=== PATIENT | female | born 1990 | race American Indian/Alaskan Native ===

== ENCOUNTER 2016-12-19 09:28 | Inpatient (IN) | payer OTHER ==
[2016-12-19 09:46] VITALS: BMI 25.4
[2016-12-19] MEDS ORDERED: Sodium Chloride 0.9% 1,000 ML IV STA (10:09)
[2016-12-19 11:05] LABS: BASO # 0.02 K/mm3 (0.0-2.0); BASO % 0.2 % (0.0-3.0); EOS # 0.1 (0.0-0.7); EOS % 0.9 % (1.5-5.0); GRAN # 6.96 (1.4-6.5); GRAN % 76.3 % (50.0-68.0); HEMOGLOBIN 11.3 gm/dL (12.0-16.0); LYMPH # 1.2 (1.2-3.4); LYMPH % 13.1 % (22.0-35.0); MEAN CELL VOLUME 80.2 fL (80.0-105.0); MEAN CORPUSCULAR HEMOGLOBIN 28.3 pg (25.0-35.0); MEAN CORPUSCULAR HGB CONC 35.3 g/dl (31.0-37.0); MEAN PLATELET VOLUME 10.7 fl (7.0-11.0); MONO # 0.9 (0.1-0.6); MONO % 9.5 % (1.0-6.0); PLATELET COUNT 387 10^3/uL (120.0-450.0); RBC 3.99 10^6/uL (3.5-6.1); RED CELL DISTRIBUTION WIDTH 19.5 % (11.5-14.5); WHITE BLOOD COUNT 9.1 10^3/ul (4.5-11.0)
[2016-12-19 11:15] LABS: PH,URINE 6.5 (4.7-8.0); URINE BILIRUBIN LARGE (NEGATIVE); URINE BLOOD TRACE-INTACT (NEGATIVE); URINE GLUCOSE (UA) 250 mg/dL (NEGATIVE); URINE LEUKOCYTE ESTERASE TRACE Leu/uL (NEGATIVE); URINE NITRATE NEGATIVE (NEGATIVE); URINE PROTEIN 100 mg/dL (<30 mg/dL)
[2016-12-19 11:17] LABS: URINE APPEARANCE CLOUDY (CLEAR); URINE COLOR YELLOW (YELLOW)
[2016-12-19 11:18] LABS: URINE EPITHELIAL CELLS 0 - 2 /hpf (0-5); URINE RBC 0 - 2 /hpf (0-2); URINE WBC 0 - 2 /hpf (0-6)
[2016-12-19 12:19] LABS: ALB/GLOB RATIO 0.8 (1.1-1.8); ALT/SGPT 401 U/L (7-56); AMYLASE 39 U/L (35-125); AST/SGOT 299 U/L (15-39); BLOOD UREA NITROGEN 4 mg/dL (7-21); CALCIUM 9.8 mg/dL (8.4-10.5); GFR AFRICAN-AMERICAN > 60; GFR NON-AFRICAN AMERICAN > 60; LIPASE 28 U/L (23-300)
[2016-12-19 12:21] LABS: INR 1.27 (0.93-1.08); PARTIAL THROMBOPLASTIN TIME 35.5 Seconds (23.7-30.8); PROTHROMBIN TIME 13.7 Seconds (9.9-11.8)
--- NOTE | 2016-12-19 12:28 | MRI ---
PROCEDURE: Magnetic Resonance Cholangiopancreatography HISTORY: COMPARISON: Abdomen ultrasound examination and dated 12/10/2016.. TECHNIQUE: Multiplanar, multisequence MR images of the abdomen were obtained, including heavily T2 weighted MRCP images of the biliary system. Rotating maximum intensity projection images of the biliary system were generated. FINDINGS: MRCP: There is gross biliary tree dilatation including the proximal to midportion of the common bile duct and the entire intrahepatic biliary tree is appears to be due to a 12 mm rounded structure with dark signal intensity in all sequences lodged at the proximal to mid common bile duct pattern with a large gallstone. The proximal common bile duct measures approximately 26 mm with the midportion of measuring approximately 14 mm. The common hepatic duct measures 31 mm. Limited cholelithiasis suspected at the neck of the gallbladder with the gallbladder partially contracted in this study. No definitive hepatic lesions appreciable. The pancreas is unremarkable with no significant pancreatic duct dilatation identified. LIVER: As per above GALLBLADDER: As per above. SPLEEN: No defined lesion in this unenhanced examination. PANCREAS: As per above. ADRENALS: Unremarkable. KIDNEYS: Grossly nonfocal bilaterally. . AORTA: No aneurysm. ASCITES: None. OTHER FINDINGS: None. IMPRESSION: Gross dilatation of the intra and extrahepatic biliary tree is appreciated due to a 12 mm gallstone lodged at the proximal to mid common bile duct as discussed above. Please see please see measurements noted above. No significant pancreatic duct dilatation. Yes
--- NOTE | 2016-12-19 12:37 | ED PDOC ---
Arrival/HPI - General Chief Complaint: Abdominal Pain Time Seen by Provider: 12/19/16 10:09 Historian: Patient - History of Present Illness Narrative History of Present Illness (Text): 12/19/16 13:43 26 yo F otherwise healthy with no PMH, presents with 2 wk h/o constant RUQ pain , associated with N/V/D. Pt states that she went to see her pmd regarding her symptoms and was sent for outpt labs and US. Her labs and US were abnormal and was regarding her gallbladder. Denies any fever, chills, CP, SOB, back pain, urinary symptoms, h/o abdominal surgeries, h/o GB disease, h/o PUD disease. Reports she occasionally drinks etoh. She adds that 1 week ago she noticed her skin is jaundiced which has never occurred in the past. PMD W Art 12/19/16 13:44 Past Medical History - Provider Review Nursing Documentation Reviewed: Yes - Reproductive Menopause: No - Gastrointestinal Hx Gall Bladder Disease: Yes - Psychiatric Hx Substance Use: Yes Family/Social History - Physician Review Nursing Documentation Reviewed: Yes Family/Social History: No Known Family HX Smoking Status: Never Smoked Hx Alcohol Use: Yes Hx Substance Use: Yes Allergies/Home Meds Allergies/Adverse Reactions: Allergies Penicillins Adverse Reaction (Verified 12/19/16 09:46) RASH Home Medications: Home Meds Medication Instructions Recorded Confirmed No Known Home Med 12/19/16 12/19/16 Review of Systems - Review of Systems Constitutional: Normal. absent: Fatigue, Weight Change, Fevers Respiratory: Normal. absent: SOB, Cough, Sputum Cardiovascular: Normal Gastrointestinal: Normal, Abdominal Pain, Diarrhea, Vomiting. absent: Stool Changes, Appetite Changes Genitourinary Female: Normal. absent: Dysuria, Frequency, Hematuria Musculoskeletal: Normal. absent: Arthralgias, Back Pain, Neck Pain Skin: Normal. absent: Rash, Pruritis, Skin Lesions Physical Exam Vital Signs Reviewed: Yes Vital Signs Temp Pulse Resp BP Pulse Ox 12/19/16 12:19 72 18 132/72 100 12/19/16 09:55 98.2 F 98 H 17 119/80 100 Temperature: Afebrile Pulse: Regular Respiratory Rate: Normal Appearance: Positive for: Well-Appearing, Non-Toxic, Comfortable Pain Distress: None Mental Status: Positive for: Alert and Oriented X 3 - Systems Exam Head: Present: Atraumatic, Normocephalic Pupils: Present: PERRL Extroacular Muscles: Present: EOMI Conjunctiva: Present: Icteric Mouth: Present: Moist Mucous Membranes Neck: Present: Normal Range of Motion. No: MIDLINE TENDERNESS, Paraspinal Tenderness Respiratory/Chest: Present: Clear to Auscultation, Good Air Exchange. No: Respiratory Distress, Accessory Muscle Use, Wheezes, Rales, Rhonchi Cardiovascular: Present: Regular Rate and Rhythm, Normal S1, S2. No: Murmurs Abdomen: Present: Normal Bowel Sounds. No: Tenderness, Distention, Peritoneal Signs, Rebound, Guarding, McBurney's Point Tender, Rovsing's Sign Present, Hernias, Mass/Organomegaly, Scars Back: Present: Normal Inspection. No: CVA Tenderness, Midline Tenderness Upper Extremity: Present: Normal Inspection, Normal ROM, NORMAL PULSES. No: Edema Lower Extremity: Present: Normal Inspection, NORMAL PULSES, Normal ROM. No: Edema Neurological: Present: GCS=15, CN II-XII Intact, Speech Normal, Motor Func Grossly Intact, Normal Sensory Function Skin: Present: Warm, Dry, Other (+jaundice). No: Rashes Psychiatric: Present: Alert, Oriented x 3 Medical Decision Making ED Course and Treatment: 12/19/16 12:31 26 yo F otherwise healthy with no PMH, presents with 2 wk h/o constant RUQ pain , associated with N/V/D. Pt's PMD called and requests for MRCP to be done today , consult obtained already with Dr. Carlos. Based on history and exam to r/o choledocolithiasis, pancreatitis, acute cholangitis. Plan: - Labs - UA - MRCP - IV access On re-evaluation, pt is resting comfortably in bed in no acute distress. On exam , pt remains jaundiced with scleral icterus. Abdomen remains soft with no tenderness, no rebound or guarding. Labs results reviewed : LFTs are all elevated with T bili of 22.9. Pt sent to MRCP STAT. MRCP of abd : Gross dilatation of the intra and extrahepatic biliary tree is appreciated due to a 12 mm gallstone lodged at the proximal to mid common bile duct as discussed above. Please see please see measurements noted above. No significant pancreatic duct dilatation. MRCP results d/w the pt and informed of plan for inpt admission, which she agrees with. Pt informed of the likely diagnosis, she was given the opportunity to ask questions. Call placed to pt's pmd and MRCP results d/w him in great detail. Dr. Cordova came and evaluated the pt in the ER. GI Dr. Carlos notified as well of MRCP results. - Lab Interpretations Lab Results: 12/19/16 11:00 12/19/16 12:00 Lab Results 12/19/16 12:00: PT 13.7 H, INR 1.27 H, APTT 35.5 H 12/19/16 12:00: Sodium 141, Potassium 3.5 L, Chloride 102, Carbon Dioxide 26, Anion Gap 17, BUN 4 L, Creatinine 0.5, Est GFR ( Amer) > 60, Est GFR (Non -Af Amer) > 60, Random Glucose 88, Calcium 9.8, Total Bilirubin 22.9 H*, AST 299 H, ALT 401 H, Alkaline Phosphatase 827 H, Total Protein 8.9 H, Albumin 4.0, Globulin 5.0, Albumin/Globulin Ratio 0.8 L, Amylase 39, Lipase 28 12/19/16 11:00: WBC 9.1, RBC 3.99, Hgb 11.3 L, Hct 32.0 L, MCV 80.2, MCH 28.3, MCHC 35.3, RDW 19.5 H, Plt Count 387, MPV 10.7, Gran % 76.3 H, Lymph % (Auto) 13.1 L, [place] % (Auto) 9.5 H, Eos % (Auto) 0.9 L, Baso % (Auto) 0.2, Gran # 6.96 H, Lymph # 1.2, [place] # 0.9 H, Eos # 0.1, Baso # 0.02 12/19/16 10:05: Urine Color Yellow, Urine Appearance Cloudy, Urine pH 6.5, Ur Specific Willis 1.020, Urine Protein 100 H, Urine Glucose (UA) 250 H, Urine Ketones 40 H, Urine Blood Trace-intact H, Urine Nitrate Negative, Urine Bilirubin Large H, Urine Urobilinogen 2.0 H, Ur Leukocyte Esterase Trace H, Urine RBC 0 - 2, Urine WBC 0 - 2, Ur Epithelial Cells 0 - 2 I have reviewed the lab results: Yes (wbc 9.1, INR 1.27, T bili 22.9, ALK phos 827, AST 299, ALT 401, UA +protien) - RAD Interpretation Narrative RAD Interpretations (Text): 12/19/16 12:30 MRCP abd : FINDINGS: MRCP: There is gross biliary tree dilatation including the proximal to midportion of the common bile duct and the entire intrahepatic biliary tree is appears to be due to a 12 mm rounded structure with dark signal intensity in all sequences lodged at the proximal to mid common bile duct pattern with a large gallstone. The proximal common bile duct measures approximately 26 mm with the midportion of measuring approximately 14 mm. The common hepatic duct measures 31 mm. Limited cholelithiasis suspected at the neck of the gallbladder with the gallbladder partially contracted in this study. No definitive hepatic lesions appreciable. The pancreas is unremarkable with no significant pancreatic duct dilatation identified. LIVER: As per above GALLBLADDER: As per above. SPLEEN: No defined lesion in this unenhanced examination. PANCREAS: As per above. ADRENALS: Unremarkable. KIDNEYS: Grossly nonfocal bilaterally. . AORTA: No aneurysm. ASCITES: None. OTHER FINDINGS: None. IMPRESSION: Gross dilatation of the intra and extrahepatic biliary tree is appreciated due to a 12 mm gallstone lodged at the proximal to mid common bile duct as discussed above. Please see please see measurements noted above. No significant pancreatic duct dilatation. Radiology Orders: 12/19/16 10:15 MRCP AND ABDOMEN W/O CONTRAST [MRI] Stat - Medication Orders Current Medication Orders: Acetaminophen (Tylenol 325mg Tab) 650 mg PO Q6H PRN PRN Reason: Fever >100.4 F Sodium Chloride (Sodium Chloride 0.9%) 1,000 mls @ 100 mls/hr IV .Q10H STA Stop: 12/19/16 20:08 Last Admin: 12/19/16 10:49 Dose: 100 mls/hr Sodium Chloride (Sodium Chloride 0.9%) 1,000 mls @ 100 mls/hr IV .Q10H GIULIANA Oxycodone/Acetaminophen (Percocet 5/325 Mg Tab) 1 tab PO Q4H PRN PRN Reason: Pain, Mild (1-3) Stop: 12/22/16 13:12 Last Admin: 12/19/16 13:47 Dose: 1 tab Phytonadione (Vitamin K Inj) 10 mg SC DAILY GIULIANA Stop: 12/22/16 13:16 Last Admin: 12/19/16 13:50 Dose: 10 mg Discontinued Medications Ketorolac Tromethamine (Toradol) 30 mg IVP STAT STA Stop: 12/19/16 13:45 - PA / [employer] / Resident Statement / has reviewed & agrees with the documentation as recorded. Disposition/Present on Arrival - Present on Arrival Any Indicators Present on Arrival: No History of DVT/PE: No History of Uncontrolled Diabetes: No Urinary Catheter: No History of Decub. Ulcer: No History Surgical Site Infection Following: None - Disposition Have Diagnosis and Disposition been Completed?: Yes Diagnosis: Abdominal pain, Choledocholithiasis, Jaundice Disposition: HOSPITALIZED Disposition Time: 12:00 Patient Plan: Admission Patient Problems: Current Active Problems Problem Status Onset Abdominal pain Acute Choledocholithiasis Acute Jaundice Acute Condition: STABLE
[2016-12-19] MEDS: Oxycodone/Acetaminophen 5/325 mg Tab PO PRN ×3 (13:47→21:19)
[2016-12-19] MEDS: Phytonadione 10 mg/ml Inj (Adult) SC SCH (13:50)
--- NOTE | 2016-12-19 14:45 | CP.PCM.CON ---
<Gilma Israel - Last Filed: 12/19/16 14:46> History of Present Illness - History of Present Illness History of Present Illness: Seen and examined at bedside, just transferred from the ER. Chart reviewed. Request for consult is for Dilated CBD, jaundice. HPI: This is a 26 year old female with a history of C section, Substance abuse, denies cardiac, DM, respiratory history, came to the ER with complaints of abdominal pain. The abdominal pain has been occurring for a few weeks now,she had an outpatient abdominal US by PCP and reported CBD 19mm and gallstones, no wall thickening or pericholcystic fluid. She went to see her PCP who noticed that her eyes were icteric. She did notice dark urine, she was also getting nausea , yesterday she was N/V, no hematemsis. Her abdominal pain is mainly epigastric/RUQ. No fever or chill, sob or chest pain. She went to the ER for further evaluation. She had MRCP on admission and report gross dilation intra and extra hepatic biliary tree, 12 mm GB tree. She is jaundice and her TB 22. No acute distress. PMH: Denies cardiac, respiratory, sustance abuse PSH: x1 Allergies: PCN Family HX: denies LMP: week November MEDS: was taking motrin for pain last week Social: denies smoking, (+)etoh, (+)substance use ROS: system reviewed with positive findings, see HPI Past Patient History - Past Social History Smoking Status: Never Smoked - GASTROINTESTINAL Hx Gall Bladder Disease: Yes - PSYCHIATRIC Hx Substance Use: Yes Meds Allergies/Adverse Reactions: Allergies Allergy/AdvReac Type Severity Reaction Status Date / Time Penicillins AdvReac RASH Verified 12/19/16 14:28 - Medications Medications: Current Medications Acetaminophen (Tylenol 325mg Tab) 650 mg PO Q6H PRN PRN Reason: Fever >100.4 F Sodium Chloride (Sodium Chloride 0.9%) 1,000 mls @ 100 mls/hr IV .Q10H STA Stop: 12/19/16 20:08 Last Admin: 12/19/16 10:49 Dose: 100 mls/hr Sodium Chloride (Sodium Chloride 0.9%) 1,000 mls @ 100 mls/hr IV .Q10H GIULIANA Oxycodone/Acetaminophen (Percocet 5/325 Mg Tab) 1 tab PO Q4H PRN PRN Reason: Pain, Mild (1-3) Stop: 12/22/16 13:12 Last Admin: 12/19/16 13:47 Dose: 1 tab Phytonadione (Vitamin K Inj) 10 mg SC DAILY GIULIANA Stop: 12/22/16 13:16 Last Admin: 12/19/16 13:50 Dose: 10 mg Physical Exam - Constitutional Appears: No Acute Distress - Head Exam Head Exam: NORMAL INSPECTION - Eye Exam Eye Exam: PERRL, Scleral icterus - ENT Exam ENT Exam: Mucous Membranes Moist - Neck Exam Neck exam: Positive for: Normal Inspection - Respiratory Exam Respiratory Exam: Clear to Auscultation Bilateral, NORMAL BREATHING PATTERN. absent: Respiratory Distress - Cardiovascular Exam Cardiovascular Exam: +S1, +S2 - GI/Abdominal Exam GI & Abdominal Exam: Normal Bowel Sounds, Soft, Tenderness. absent: Distended, Guarding, Rebound Additional comments: epigastric to RUQ - Extremities Exam Extremities exam: Positive for: pedal pulses present. Negative for: calf tenderness, pedal edema - Neurological Exam Neurological exam: Alert, Oriented x3 - Skin Skin Exam: Dry, Warm Additional comments: Jaundice Results - Vital Signs Recent Vital Signs: Last Vital Signs Temp 98.2 F 12/19/16 09:55 Pulse 72 12/19/16 12:19 Resp 18 12/19/16 12:19 BP 132/72 12/19/16 12:19 Pulse Ox 100 12/19/16 12:19 - Labs Result Diagrams: 12/19/16 11:00 12/19/16 12:00 Assessment & Plan - Assessment and Plan (Free Text) Assessment: ASSESSMENT: Obstructive Jaundice Cholelithiasis Dilated CBD Elevated LFT PLAN: on regular diet hepatitis panel trend LFT start GI prophylaxsis DVT propylaxsis, OOB IVF NPO 12 midnight for EGD/EUS/ERCP fpr 12/20/16, discuss with patient. pain mgt Thank you for this consult and for allowing us to participate in your patient care. Seen and discussed with Dr. Carlos. <Alexus Carlos V - Last Filed: 12/19/16 23:49> Meds - Medications Medications: Current Medications Acetaminophen (Tylenol 325mg Tab) 650 mg PO Q6H PRN PRN Reason: Fever >100.4 F Sodium Chloride (Sodium Chloride 0.9%) 1,000 mls @ 100 mls/hr IV .Q10H GIULIANA Oxycodone/Acetaminophen (Percocet 5/325 Mg Tab) 1 tab PO Q4H PRN PRN Reason: Pain, Mild (1-3) Stop: 12/22/16 13:12 Last Admin: 12/19/16 21:19 Dose: 1 tab Phytonadione (Vitamin K Inj) 10 mg SC DAILY GIULIANA Stop: 12/22/16 13:16 Last Admin: 12/19/16 13:50 Dose: 10 mg Results - Vital Signs Recent Vital Signs: Last Vital Signs Temp 98.8 F 12/19/16 16:00 Pulse 71 12/19/16 16:00 Resp 20 12/19/16 16:00 BP 115/68 12/19/16 16:00 Pulse Ox 100 12/19/16 16:00 - Labs Result Diagrams: 12/19/16 11:00 12/19/16 12:00 Attending/Attestation - Attestation I have personally seen and examined this patient.: Yes I have fully participated in the care of the patient.: Yes I have reviewed all pertinent clinical information: Yes Notes (Text): this patient was seen and evaluated earlier. Discussed with the patient at length. The MRI was reviewed with the radiologist . He is 21. Patient is admitted with obstructive jaundice and dilated common bile duct CBD stone differential diagnosis Mirrizzi's syndrome. on examination patient was deeply jaundiced as a mild tenderness present in the right upper quadrant area no rebound or guarding Patient is scheduled for EUS ERCP tomorrow I did discuss in detail regarding the ERCP procedure risks benefits and 20 patient's boyfriend was at bedside had a discussed with the Dr.Azer trentv.
[2016-12-19] MEDS ORDERED: Pneumococcal 23-Valent Vaccine IM ONE (16:14)
[2016-12-19 21:54] LABS: HEPATITIS B SURFACE AG NEGATIVE (NEGATIVE)
[2016-12-19 21:59] LABS: HEPATITIS A IGM NEGATIVE (NEGATIVE)
[2016-12-19 22:00] LABS: HEPATITIS B CORE AB NEGATIVE (NEGATIVE)
[2016-12-19 22:12] LABS: HEPATITIS C ANTIBODY NEGATIVE (NEGATIVE)
[2016-12-20 06:28] LABS: BASO # 0.03 K/mm3 (0.0-2.0); BASO % 0.4 % (0.0-3.0); EOS # 0.2 (0.0-0.7); EOS % 2.1 % (1.5-5.0); GRAN # 5.02 (1.4-6.5); GRAN % 63.3 % (50.0-68.0); HEMOGLOBIN 9.7 gm/dL (12.0-16.0); LYMPH # 1.6 (1.2-3.4); LYMPH % 20.3 % (22.0-35.0); MEAN CELL VOLUME 79.9 fL (80.0-105.0); MEAN CORPUSCULAR HEMOGLOBIN 27.8 pg (25.0-35.0); MEAN CORPUSCULAR HGB CONC 34.8 g/dl (31.0-37.0); MEAN PLATELET VOLUME 9.9 fl (7.0-11.0); MONO # 1.1 (0.1-0.6); MONO % 13.9 % (1.0-6.0); PLATELET COUNT 356 10^3/uL (120.0-450.0); RBC 3.49 10^6/uL (3.5-6.1); RED CELL DISTRIBUTION WIDTH 19.9 % (11.5-14.5); WHITE BLOOD COUNT 7.9 10^3/ul (4.5-11.0)
[2016-12-20 06:43] LABS: ALB/GLOB RATIO 0.8 (1.1-1.8); ALBUMIN 3.3 g/dL (3.0-4.8); ALT/SGPT 334 U/L (7-56); AST/SGOT 276 U/L (15-39); BLOOD UREA NITROGEN 3 mg/dL (7-21); CALCIUM 9.1 mg/dL (8.4-10.5); GFR AFRICAN-AMERICAN > 60; GFR NON-AFRICAN AMERICAN > 60
--- NOTE | 2016-12-20 08:13 | HP ---
REASON FOR ADMISSION: 1. Obstructive jaundice. 2. Upper quadrant pain. HISTORY OF PRESENT ILLNESS: This is a 26-year-old female who presented to my office with abdominal pain and jaundice. The patient was sent to the emergency room where she had the initial assessment. There we found that she has obstructive jaundice with the change in the urine and stool color and night itching. Her initial total bili is 22.9 with AST 299 and ALT 401. The patient did have an ultrasound at [facility] prior to this admission that shows dilated common bile duct as well as intra and extrahepatic biliary duct with cholelithiasis, bile duct was 19 mm. The patient was brought to the emergency room for this reason where she had MRCP that found she has 12 mm stone in the distal common bile duct, colon obstruction. She also has cholelithiasis. No other symptoms. She also mentioned that she has change in her urine color to dark as well as light stool color as well as itching at night. No other medical history. PAST MEDICAL HISTORY: None. PAST SURGICAL HISTORY: None. ALLERGIES: NONE. MEDICATIONS AT HOME: None. SOCIAL HISTORY: No smoking, no drinking and no drug abuse. FAMILY HISTORY: significant. PHYSICAL EXAMINATION: GENERAL: She is alert, oriented x3 in acute distress. Very jaundiced. HEENT: Atraumatic and normocephalic, was jaundiced eyes and skin. CARDIOVASCULAR: S1 and S2. No murmur or gallop. CHEST: Clear to auscultation bilaterally. No wheezes. No crepitations. ABDOMEN: Soft, nontender and nondistended. Good bowel sounds. She has deep tenderness in the right upper quadrant, but other than that no rebound, no guarding, no peritonitis. EXTREMITIES: All within normal limits. LABORATORY DATA: Her white count 9.1 with hemoglobin 11, hematocrit is 32 with a platelet count of 387. [place] field shift of 76%. She had a PT 15.7, INR is 1.27 and PTT is 35.5. Her chemistry with sodium 141, potassium is 3.5, chloride is 102, carbon dioxide is 26, BUN is 4, creatinine is 0.5 and total bili 22.9. AST 299, ALT 401. Alk phos 827. Normal amylase and lipase. Her urine is negative for UTI, but she has large bilirubin. The patient had ultrasound prior to admission, that was consistent with dilatation of the common bile duct and cholelithiasis. MRI was done today that was consistent with dilatation of the common and intra and extrahepatic biliary duct with obstructing stone of 12 mm in the distal common bile duct. PLAN: 1. We will admit to hospital. 2. Consult Dr. Alexus Carlos for ERCP possible stent and stone extraction. 3. The patient to be on regular diet today and will n.p.o. past midnight. 4. We will plan cholecystectomy either on this admission or later admission. Case discussed with the patient and mother and they both agreed with the plan. Angela Cordova MD cc: MD Luis Felipe Anna MD
[2016-12-20 08:36] LABS: INR 1.1 (0.93-1.08); PROTHROMBIN TIME 11.9 Seconds (9.9-11.8)
[2016-12-20] MEDS: Oxycodone/Acetaminophen 5/325 mg Tab PO PRN (08:58)
[2016-12-20] MEDS: Sodium Chloride 0.9% 1,000 ML IV SCH (10:48)
[2016-12-20] MEDS: Phytonadione 10 mg/ml Inj (Adult) SC SCH (10:48)
[2016-12-20] MEDS ORDERED: Iohexol 240 (50 ml) ONE (14:51)
[2016-12-20] MEDS ORDERED: Succinylcholine 200 mg/10 ml Inj IV ONE (16:13)
[2016-12-20] MEDS ORDERED: Rocuronium 10 mg/ml (5 ml) ONE (16:24)
[2016-12-20] MEDS ORDERED: levoFLOXacin 250 mg in D5W 250 MG/50 ML BAG IVPB ONE (17:00)
[2016-12-20] MEDS ORDERED: D5W IVPB ONE (17:49)
[2016-12-20] MEDS ORDERED: LEVOFLOXACIN IVPB ONE (17:49)
[2016-12-20] MEDS: Indomethacin 50 MG Suppository PR ONE (17:50)
[2016-12-20] MEDS ORDERED: Neostigmine Methylsulfate 3mg/3ml Syringe IV ONE (18:37)
[2016-12-20] MEDS ORDERED: Glycopyrrolate 0.2 mg/ml (2ml vial) ONE (18:37)
[2016-12-20] MEDS ORDERED: Sodium Chloride 0.9% 1,000 ML IV SCH (19:00)
[2016-12-21] MEDS: Sodium Chloride 0.9% 1,000 ML IV SCH (00:16)
--- NOTE | 2016-12-21 05:24 | PN ---
DATE: 12/20/2016 SUBJECTIVE: The patient is admitted with obstructive jaundice in an eye that she has obstructing stone in the distal bile common duct that measure about 12 cm with dilation of the intra and extrahepatic biliary duct as well as cholelithiasis. She was admitted and GI consult with Dr. Carlos, who agreed to do the ERCP tomorrow and possible papillotomy. No evidence overnight. PHYSICAL EXAMINATION: VITAL SIGNS: She is afebrile. Stable. HEAD: She is atraumatic and normocephalic. EARS, NOSE, AND THROAT: Definitely she had jaundice in the eye and the skin. NECK: Soft with trachea in the midline. LUNGS: Clear to auscultation bilaterally. ABDOMEN: Soft, nontender, and nondistended with good bowel sounds. EXTREMITIES: All within normal limits. LABORATORY DATA: Her liver function tests repeated is much of the same image as yesterday with still total bilirubin is 22.9. ASSESSMENT AND PLAN: The patient will go today with Dr. Carlos for ERCP, possible papillotomy, possible stent, possible stone . Assess the situation after the procedure is performed. Angela Cordova MD
[2016-12-21 07:21] LABS: BASO # 0.01 K/mm3 (0.0-2.0); BASO % 0.1 % (0.0-3.0); EOS # 0.1 (0.0-0.7); EOS % 0.6 % (1.5-5.0); GRAN # 7.86 (1.4-6.5); GRAN % 73.3 % (50.0-68.0); HEMOGLOBIN 9.9 gm/dL (12.0-16.0); LYMPH # 1.7 (1.2-3.4); MEAN CELL VOLUME 80.2 fL (80.0-105.0); MEAN CORPUSCULAR HEMOGLOBIN 27.7 pg (25.0-35.0); MEAN CORPUSCULAR HGB CONC 34.5 g/dl (31.0-37.0); MEAN PLATELET VOLUME 9.9 fl (7.0-11.0); MONO # 1.1 (0.1-0.6); PLATELET COUNT 410 10^3/uL (120.0-450.0); RBC 3.58 10^6/uL (3.5-6.1); RED CELL DISTRIBUTION WIDTH 20.3 % (11.5-14.5); WHITE BLOOD COUNT 10.7 10^3/ul (4.5-11.0)
[2016-12-21 07:31] LABS: INR 1.11 (0.93-1.08); PARTIAL THROMBOPLASTIN TIME 32.9 Seconds (23.7-30.8)
[2016-12-21 07:35] LABS: ALB/GLOB RATIO 0.8 (1.1-1.8); ALBUMIN 3.6 g/dL (3.0-4.8); ALT/SGPT 317 U/L (7-56); AMYLASE 40 U/L (35-125); AST/SGOT 216 U/L (15-39); BLOOD UREA NITROGEN 6 mg/dL (7-21); CALCIUM 9.3 mg/dL (8.4-10.5); GAMMA GLUTAMYL TRANSPEPTIDASE 382 U/L (8-78); GFR AFRICAN-AMERICAN > 60; GFR NON-AFRICAN AMERICAN > 60; LIPASE 17 U/L (23-300)
[2016-12-21] MEDS ORDERED: Barium Sulfate Susp 2.1% w/v, 2.0% w/w 450 mL Bottle PO ONE (09:06)
--- NOTE | 2016-12-21 11:56 | CP.PCM.PN ---
<Gilma Israel - Last Filed: 12/21/16 11:53> Subjective - Date & Time of Evaluation Time of Evaluation: 09:10 - Subjective Subjective: S&E at bedside, chart reviewed. Had ERCP yesterday, s/p sphincterotomy and insertion of 7 FR 9CM straight plastic biliary stent. No complaints this am, Consuming clear liquid diet and tolerating. Abdominal pain has improved, no fever, chills, N/V. Objective - Vital Signs/Intake and Output Vital Signs (last 24 hours): Temp Pulse Resp BP Pulse Ox 98.1 F 60 19 129/76 100 12/21/16 07:40 12/21/16 07:40 12/21/16 07:40 12/21/16 07:40 12/21/16 07:40 Intake and Output: 12/21/16 12/21/16 06:59 18:59 Intake Total 1200 Output Total 350 Balance 850 - Medications Medications: Current Medications Acetaminophen (Tylenol 325mg Tab) 650 mg PO Q6H PRN PRN Reason: Fever >100.4 F Sodium Chloride (Sodium Chloride 0.9%) 1,000 mls @ 100 mls/hr IV .Q10H GIULIANA Last Admin: 12/21/16 00:16 Dose: 100 mls/hr Sodium Chloride (Sodium Chloride 0.9%) 1,000 mls @ 100 mls/hr IV .Q10H GIULIANA Oxycodone/Acetaminophen (Percocet 5/325 Mg Tab) 1 tab PO Q4H PRN PRN Reason: Pain, Mild (1-3) Stop: 12/22/16 13:12 Last Admin: 12/20/16 08:58 Dose: 1 tab Pantoprazole Sodium (Protonix Inj) 40 mg IVP DAILY GIULIANA Last Admin: 12/21/16 08:59 Dose: 40 mg - Labs Labs: 12/21/16 07:00 12/21/16 07:00 PT 12.0 Seconds (9.9-11.8) H 12/21/16 07:00 INR 1.11 (0.93-1.08) H 12/21/16 07:00 APTT 32.9 Seconds (23.7-30.8) H 12/21/16 07:00 - Constitutional Appears: No Acute Distress - Head Exam Head Exam: NORMOCEPHALIC - Eye Exam Eye Exam: Scleral icterus - ENT Exam ENT Exam: Mucous Membranes Moist - Neck Exam Neck Exam: Normal Inspection - Respiratory Exam Respiratory Exam: Clear to Ausculation Bilateral, NORMAL BREATHING PATTERN. absent: Respiratory Distress - Cardiovascular Exam Cardiovascular Exam: +S1, +S2 - GI/Abdominal Exam GI & Abdominal Exam: Soft, Normal Bowel Sounds. absent: Guarding, Tenderness, Rebound - Extremities Exam Extremities Exam: Normal Capillary Refill. absent: Calf Tenderness, Pedal Edema - Neurological Exam Neurological Exam: Alert, Awake, Oriented x3 - Skin Skin Exam: Dry, Warm Additional comments: jaundice Assessment and Plan - Assessment and Plan (Free Text) Assessment: ASSESSMENT: Obstructive Jaundice s/p ERCP with sphincterotomy/stent placement Cholelithiasis Dilated CBD Elevated LFT PLAN: on clear liquid trend LFT continue GI prophylaxsis DVT propylaxsis, OOB IVF ct scan A&P w/ pancreatic protocol surgical FU Seen and discussed with Dr. Carlos. <Alexus Carlos V - Last Filed: 12/21/16 23:32> Objective - Vital Signs/Intake and Output Vital Signs (last 24 hours): Temp Pulse Resp BP Pulse Ox 98.2 F 64 18 132/90 98 12/21/16 16:00 12/21/16 16:00 12/21/16 16:00 12/21/16 16:00 12/21/16 16:00 Intake and Output: 12/21/16 12/22/16 18:59 06:59 Intake Total 660 Balance 660 - Medications Medications: Current Medications Acetaminophen (Tylenol 325mg Tab) 650 mg PO Q6H PRN PRN Reason: Fever >100.4 F Oxycodone/Acetaminophen (Percocet 5/325 Mg Tab) 1 tab PO Q4H PRN PRN Reason: Pain, Mild (1-3) Stop: 12/22/16 13:12 Last Admin: 12/20/16 08:58 Dose: 1 tab Pantoprazole Sodium (Protonix Ec Tab) 40 mg PO 0600 GIULIANA - Labs Labs: 12/21/16 07:00 12/21/16 07:00 PT 12.0 Seconds (9.9-11.8) H 12/21/16 07:00 INR 1.11 (0.93-1.08) H 12/21/16 07:00 APTT 32.9 Seconds (23.7-30.8) H 12/21/16 07:00 Attending/Attestation - Attestation I have personally seen and examined this patient.: Yes I have fully participated in the care of the patient.: Yes I have reviewed all pertinent clinical information, including history, physical exam and plan: Yes Notes (Text): this
--- NOTE | 2016-12-21 16:08 | CT ---
PROCEDURE: CT Abdomen and Pelvis with and without intravenous contrast HISTORY: w/ abd pelvis: cbd stone, s/p ercp COMPARISON: MRCP 12/19/2016 and ERCP 12/20/2016 TECHNIQUE: Axial images of the abdomen were obtained in the pre contrast, portal venous and delayed phases of enhancement. Coronal and sagittal reformats were generated. This CT exam was performed using one or more of the following dose reduction techniques: Automated exposure control, adjustment of the mA and/or kV according to patient size, and/or use of iterative reconstruction technique. Contrast dose: 150 cc of Omni 350 Radiation dose: Total exam DLP = 1000 mGy-cm. FINDINGS: LOWER THORAX: Unremarkable. LIVER: Unremarkable. No gross lesion or ductal dilatation. GALLBLADDER AND BILE DUCTS: A common bile duct stent was placed yesterday. The intrahepatic ductal dilatation as well as the distended gallbladder and common duct are no longer seen. There is a small amount of air in the intrahepatic ducts which are normal in size. The common duct is decompressed. The gallbladder is decompressed. On axial image 39 series 2 a 6 mm stone can be seen adjacent to the common duct stent. It is uncertain if this is in the cystic duct or the common duct. This density appears to be smaller than the stone seen on MRCP. That stone measured 14 mm. There is a probable stone in the gallbladder fundus measuring 10 x 16 mm. This could represent 2 adjacent stones. This could represent the stone that was lodged in the cystic duct and is now displaced into the fundus. This can be seen on image 46 through 49 of series 5. PANCREAS: Unremarkable. No gross lesion or ductal dilatation. SPLEEN: Unremarkable. ADRENALS: Unremarkable. No mass. KIDNEYS AND URETERS: Unremarkable. No hydronephrosis. No solid mass. VASCULATURE: Unremarkable. No aortic aneurysm. BOWEL: Unremarkable. No obstruction. No gross mural thickening. APPENDIX: Normal appendix. PERITONEUM: Unremarkable. No free fluid. No free air. LYMPH NODES: Unremarkable. No enlarged lymph nodes. BLADDER: Unremarkable. REPRODUCTIVE: Unremarkable. BONES: No acute fracture. OTHER FINDINGS: None. IMPRESSION: Decompression of biliary ducts after stent placement. See comments
--- NOTE | 2016-12-21 18:35 | PN ---
DATE: 12/21/2016 SUBJECTIVE: The patient is status post ERCP and stent placement by Dr. Carlos. Stent still existing, this was not removed. CT scan was obtained this morning, which shows a stent but decompression of the gallbladder as well as the biliary system, but stent dilated to 16 mm. Also showed the stone is existing. PHYSICAL EXAMINATION: VITAL SIGNS: She is afebrile. Vital signs are stable. GENERAL: She is awake, oriented x3, no acute complains. Tolerating diet. NECK: Supple. Trachea midline. ABDOMEN: Soft, nontender, nondistended. Good bowel sounds. EXTREMITIES: All within normal limits. LABORATORY DATA: Her white count is 10.7, hemoglobin 10, hematocrit is 28.7 and platelet count of 410. Her chemistry with sodium 142, potassium is 3.7, chloride 106, BUN is 6, creatinine 0.5. Total bilirubin 16.7 down from 20. AST is 260, ALT is 317 and alk phos 768 with amylase and lipase [address] scan with contrast it shows decompression of the biliary system with still cholelithiasis and stent placed. PLAN: 1. The plan for now is we will advance the patient to diet and hep lock her IV. 2. We will discuss with Dr. Carlos if he want to take the patient back to try again to remove the stone. If not, we will consider cholecystectomy and common bile duct ____ possible hepaticojejunostomy, possible choledoco-duodenostomy. Case discussed with the patient mom as well as the patient. Angela Cordova MD
[2016-12-21 19:40] LABS: BILIRUBIN,DIRECT 13.5 mg/dL (0.0-0.4)
[2016-12-22] MEDS: Oxycodone/Acetaminophen 5/325 mg Tab PO PRN (04:41)
[2016-12-22] MEDS: Pantoprazole 40 mg EC Tab PO SCH (05:32)
[2016-12-22 10:15] LABS: BASO # 0.02 K/mm3 (0.0-2.0); BASO % 0.2 % (0.0-3.0); EOS # 0.1 (0.0-0.7); EOS % 1.6 % (1.5-5.0); GRAN # 4.98 (1.4-6.5); GRAN % 61.7 % (50.0-68.0); HEMOGLOBIN 8.9 gm/dL (12.0-16.0); LYMPH # 2.4 (1.2-3.4); LYMPH % 29.5 % (22.0-35.0); MEAN CELL VOLUME 81.1 fL (80.0-105.0); MEAN CORPUSCULAR HEMOGLOBIN 28.1 pg (25.0-35.0); MEAN CORPUSCULAR HGB CONC 34.6 g/dl (31.0-37.0); MEAN PLATELET VOLUME 9.9 fl (7.0-11.0); MONO # 0.6 (0.1-0.6); PLATELET COUNT 387 10^3/uL (120.0-450.0); RBC 3.17 10^6/uL (3.5-6.1); RED CELL DISTRIBUTION WIDTH 20.9 % (11.5-14.5); WHITE BLOOD COUNT 8.1 10^3/ul (4.5-11.0)
[2016-12-22 10:21] LABS: ALB/GLOB RATIO 0.8 (1.1-1.8); ALBUMIN 3.3 g/dL (3.0-4.8); ALT/SGPT 231 U/L (7-56); AST/SGOT 162 U/L (15-39); BLOOD UREA NITROGEN 3 mg/dL (7-21); GFR AFRICAN-AMERICAN > 60; GFR NON-AFRICAN AMERICAN > 60
[2016-12-22] MEDS ORDERED: Potassium Chloride 20 mEq ER Tab PO ONE (10:57)
--- NOTE | 2016-12-22 12:32 | CP.PCM.PN ---
<Gilma Israel - Last Filed: 12/22/16 12:32> Subjective - Date & Time of Evaluation Date of Evaluation: 12/22/16 Time of Evaluation: 09:35 - Subjective Subjective: S&E at bedside this am, improving jaundice, denies N/V abdominal pain. No fever or chills. Tolerating oral intake.No new complaints. Objective - Vital Signs/Intake and Output Vital Signs (last 24 hours): Temp Pulse Resp BP Pulse Ox 98.3 F 65 20 134/79 99 12/22/16 08:29 12/22/16 08:29 12/22/16 08:29 12/22/16 08:29 12/22/16 08:29 Intake and Output: 12/22/16 12/22/16 06:59 18:59 Intake Total 660 120 Balance 660 120 - Medications Medications: Current Medications Acetaminophen (Tylenol 325mg Tab) 650 mg PO Q6H PRN PRN Reason: Fever >100.4 F Oxycodone/Acetaminophen (Percocet 5/325 Mg Tab) 1 tab PO Q4H PRN PRN Reason: Pain, Mild (1-3) Stop: 12/22/16 13:12 Last Admin: 12/22/16 04:41 Dose: 1 tab Pantoprazole Sodium (Protonix Ec Tab) 40 mg PO 0600 [facility]UL[facility] Last Admin: 12/22/16 05:32 Dose: 40 mg - Labs Labs: 12/22/16 09:50 12/22/16 09:50 PT 12.0 Seconds (9.9-11.8) H 12/21/16 07:00 INR 1.11 (0.93-1.08) H 12/21/16 07:00 APTT 32.9 Seconds (23.7-30.8) H 12/21/16 07:00 - Constitutional Appears: No Acute Distress - Head Exam Head Exam: NORMOCEPHALIC - Eye Exam Eye Exam: Scleral icterus (improved) - Neck Exam Neck Exam: Normal Inspection - Respiratory Exam Respiratory Exam: Clear to Ausculation Bilateral, NORMAL BREATHING PATTERN. absent: Respiratory Distress - Cardiovascular Exam Cardiovascular Exam: +S1, +S2 - GI/Abdominal Exam GI & Abdominal Exam: Soft, Normal Bowel Sounds. absent: Distended, Guarding, Tenderness, Organomegaly, Rebound - Extremities Exam Extremities Exam: Normal Capillary Refill. absent: Calf Tenderness, Pedal Edema - Neurological Exam Neurological Exam: Alert, Awake, Oriented x3 - Skin Skin Exam: Dry (improving jaundice), Warm Assessment and Plan - Assessment and Plan (Free Text) Assessment: ASSESSMENT: Obstructive Jaundice, s/p ERCP with sphincterotomy/stent placement Cholelithiasis Dilated CBD Elevated LFT, improving PLAN: continue low diet trend LFT continue GI prophylaxsis DVT propylaxsis, OOB ct pancreatic protocol reviewed w/ radiologist NPO 12 midnight for ERCP/spyglass 12/22/16 repeat labs in am: cbc,cmp,pt monitor H/H Seen and discussed with Dr. Carlos. <Alexus Carlos V - Last Filed: 12/23/16 17:56> Objective - Vital Signs/Intake and Output Vital Signs (last 24 hours): Temp Pulse Resp BP Pulse Ox 98.7 F 76 18 128/76 100 12/22/16 20:00 12/22/16 16:00 12/22/16 16:00 12/22/16 16:00 12/22/16 16:00 Intake and Output: 12/22/16 12/23/16 18:59 06:59 Intake Total 120 540 Balance 120 540 - Medications Medications: Current Medications Acetaminophen (Tylenol 325mg Tab) 650 mg PO Q6H PRN PRN Reason: Fever >100.4 F Last Admin: 12/22/16 17:34 Dose: 650 mg Pantoprazole Sodium (Protonix Ec Tab) 40 mg PO 0600 GIULIANA Last Admin: 12/22/16 05:32 Dose: 40 mg - Labs Labs: 12/22/16 09:50 12/22/16 09:50 PT 12.0 Seconds (9.9-11.8) H 12/21/16 07:00 INR 1.11 (0.93-1.08) H 12/21/16 07:00 APTT 32.9 Seconds (23.7-30.8) H 12/21/16 07:00 Attending/Attestation - Attestation I have personally seen and examined this patient.: Yes I have fully participated in the care of the patient.: Yes I have reviewed all pertinent clinical information, including history, physical exam and plan: Yes Notes (Text): t
[2016-12-23] MEDS: Pantoprazole 40 mg EC Tab PO SCH (05:50)
[2016-12-23 07:24] LABS: BASO # 0.04 K/mm3 (0.0-2.0); BASO % 0.6 % (0.0-3.0); EOS # 0.1 (0.0-0.7); GRAN # 4.11 (1.4-6.5); GRAN % 57.2 % (50.0-68.0); HEMOGLOBIN 8.2 gm/dL (12.0-16.0); LYMPH # 2.1 (1.2-3.4); LYMPH % 29.6 % (22.0-35.0); MEAN CELL VOLUME 81.8 fL (80.0-105.0); MEAN CORPUSCULAR HEMOGLOBIN 27.6 pg (25.0-35.0); MEAN CORPUSCULAR HGB CONC 33.7 g/dl (31.0-37.0); MEAN PLATELET VOLUME 9.9 fl (7.0-11.0); MONO # 0.8 (0.1-0.6); MONO % 10.6 % (1.0-6.0); PLATELET COUNT 403 10^3/uL (120.0-450.0); RBC 2.97 10^6/uL (3.5-6.1); RED CELL DISTRIBUTION WIDTH 21.6 % (11.5-14.5); WHITE BLOOD COUNT 7.2 10^3/ul (4.5-11.0)
[2016-12-23 07:31] LABS: INR 1.03 (0.93-1.08); PARTIAL THROMBOPLASTIN TIME 29.1 Seconds (23.7-30.8); PROTHROMBIN TIME 11.1 Seconds (9.9-11.8)
[2016-12-23 08:21] LABS: ALB/GLOB RATIO 0.8 (1.1-1.8); ALT/SGPT 186 U/L (7-56); AST/SGOT 134 U/L (15-39); BLOOD UREA NITROGEN 3 mg/dL (7-21); CALCIUM 8.8 mg/dL (8.4-10.5); GFR AFRICAN-AMERICAN > 60; GFR NON-AFRICAN AMERICAN > 60
[2016-12-23 11:19] LABS: BASO # 0.02 K/mm3 (0.0-2.0); BASO % 0.3 % (0.0-3.0); EOS # 0.1 (0.0-0.7); EOS % 1.6 % (1.5-5.0); GRAN # 3.73 (1.4-6.5); GRAN % 59.7 % (50.0-68.0); HEMOGLOBIN 8.5 gm/dL (12.0-16.0); LYMPH # 1.8 (1.2-3.4); LYMPH % 28.8 % (22.0-35.0); MEAN CELL VOLUME 82.5 fL (80.0-105.0); MEAN CORPUSCULAR HEMOGLOBIN 27.5 pg (25.0-35.0); MEAN CORPUSCULAR HGB CONC 33.3 g/dl (31.0-37.0); MONO # 0.6 (0.1-0.6); MONO % 9.6 % (1.0-6.0); PLATELET COUNT 428 10^3/uL (120.0-450.0); RBC 3.09 10^6/uL (3.5-6.1); RED CELL DISTRIBUTION WIDTH 21.6 % (11.5-14.5); WHITE BLOOD COUNT 6.3 10^3/ul (4.5-11.0)
--- NOTE | 2016-12-23 13:59 | PN ---
DATE: 12/23/2016 SUBJECTIVE: The patient admitted for obstructive jaundice, found that she has large obstructing stone at the distal common bile duct. She was taken by Dr. Carlos for ERCP that was unsuccessful to remove the stone but was able to place a stent. The patient is doing well since then. She has no complaints. She is tolerating regular diet very well. PHYSICAL EXAMINATION: VITAL SIGNS: She is afebrile. Vital signs are stable. ABDOMEN: Soft, nontender, nondistended with good bowel sounds. LABORATORY DATA: Her white count today 6.3 with hemoglobin is 8.5 and hematocrit is 25.5 and platelet count of 424. Her coagulation is . PT is 11.1 and INR is 1.03. Her chemistry; sodium is 139, potassium is 3.7, BUN is 3, creatinine is 0.5. Total bilirubin is 6.4 that is why down from admission which was 23. AST and ALT 134 and 186 which is also down. Her alk phos is 539 is okay. PLAN: Dr. Carlos planning to take the patient today for another ERCP, possible removal of the stone, and we will determine the next move based on today's procedure outcome. Angela Cordova MD
[2016-12-23] MEDS ORDERED: Iohexol 240 (50 ml) ONE (16:55)
[2016-12-23] MEDS ORDERED: Indomethacin 50 MG Suppository PR ONE (16:56)
[2016-12-23] MEDS ORDERED: Propofol 10 mg/ml Inj (20 ML) ONE (17:52)
[2016-12-23] MEDS ORDERED: Midazolam 2 MG/2 ML VIAL ONE (17:52)
[2016-12-23] MEDS ORDERED: Succinylcholine 200 mg/10 ml Inj IV ONE (17:52)
--- NOTE | 2016-12-23 17:58 | CP.PCM.PN ---
Subjective - Date & Time of Evaluation Date of Evaluation: 12/23/16 Time of Evaluation: 17:15 - Subjective Subjective: feels better. No abigail. 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 Objective - Vital Signs/Intake and Output Vital Signs (last 24 hours): Temp Pulse Resp BP Pulse Ox 98 F 64 18 118/78 100 12/23/16 16:09 12/23/16 16:09 12/23/16 16:09 12/23/16 16:09 12/23/16 16:09 Intake and Output: 12/23/16 12/23/16 06:59 18:59 Intake Total 540 0 Balance 540 0 - Medications Medications: Current Medications Acetaminophen (Tylenol 325mg Tab) 650 mg PO Q6H PRN PRN Reason: Fever >100.4 F Last Admin: 12/22/16 23:40 Dose: 650 mg Pantoprazole Sodium (Protonix Ec Tab) 40 mg PO 0600 GIULIANA Last Admin: 12/23/16 05:50 Dose: Not Given - Labs Labs: 12/23/16 11:00 12/23/16 06:30 PT 11.1 Seconds (9.9-11.8) 12/23/16 05:00 INR 1.03 (0.93-1.08) 12/23/16 05:00 APTT 29.1 Seconds (23.7-30.8) 12/23/16 05:00 - Constitutional Appears: Well - Head Exam Head Exam: ATRAUMATIC, NORMOCEPHALIC - Eye Exam Eye Exam: EOMI, Scleral icterus - ENT Exam ENT Exam: Mucous Membranes Moist, Normal External Ear Exam - Neck Exam Neck Exam: Normal Inspection. absent: Lymphadenopathy - Respiratory Exam Respiratory Exam: NORMAL BREATHING PATTERN. absent: Accessory Muscle Use, Rales , Rhonchi - Cardiovascular Exam Cardiovascular Exam: REGULAR RHYTHM, +S1, +S2 - GI/Abdominal Exam GI & Abdominal Exam: Soft. absent: Tenderness, Mass Assessment and Plan - Assessment and Plan (Free Text) Assessment: Obstructive Jaundice, s/p ERCP with sphincterotomy/stent placement Cholelithiasis Dilated CBD Elevated LFT, improving anemial drop in hb no obvious bleeding Plan: For ERCP spyglass informed consent obtained rept Hct stable
[2016-12-23] MEDS ORDERED: levoFLOXacin 500 mg in D5W 500 MG/100 ML BAG IVPB ONE (21:11)
[2016-12-23] MEDS: Sodium Chloride 0.9% 1,000 ML IV SCH (22:31)
--- NOTE | 2016-12-24 01:22 | CP.PCM.PN ---
Subjective - Date & Time of Evaluation Date of Evaluation: 12/24/16 Time of Evaluation: 01:20 - Subjective Subjective: # 22 angiocath was inserted in right hand dorsum. Dx:Poor venous access. Patient has no acute symptoms. Last Vital Signs 3 Temp 97.6 F 12/24/16 00:00 Pulse 81 12/24/16 00:00 Resp 20 12/24/16 00:00 BP 184/77 H 12/24/16 00:00 Pulse Ox 99 12/24/16 00:00 awake, alert. LUNGS: Normal breathing pattern. Objective - Vital Signs/Intake and Output Vital Signs (last 24 hours): Temp Pulse Resp BP Pulse Ox 97.6 F 81 20 184/77 H 99 12/24/16 00:00 12/24/16 00:00 12/24/16 00:00 12/24/16 00:00 12/24/16 00:00 Intake and Output: 12/23/16 12/24/16 18:59 06:59 Intake Total 0 0 Balance 0 0 - Medications Medications: Current Medications Acetaminophen (Tylenol 325mg Tab) 650 mg PO Q6H PRN PRN Reason: Fever >100.4 F Last Admin: 12/24/16 00:33 Dose: 650 mg Sodium Chloride (Sodium Chloride 0.9%) 1,000 mls @ 100 mls/hr IV .Q10H [facility] Last Admin: 12/23/16 22:31 Dose: 100 mls/hr Ondansetron HCl (Zofran Inj) 4 mg IVP Q6H PRN PRN Reason: Nausea/Vomiting Pantoprazole Sodium (Protonix Ec Tab) 40 mg PO 0600 [facility] Last Admin: 12/23/16 05:50 Dose: Not Given - Labs Labs: 12/23/16 11:00 12/23/16 06:30 PT 11.1 Seconds (9.9-11.8) 12/23/16 05:00 INR 1.03 (0.93-1.08) 12/23/16 05:00 APTT 29.1 Seconds (23.7-30.8) 12/23/16 05:00
[2016-12-24] MEDS: Pantoprazole 40 mg EC Tab PO SCH (05:29)
[2016-12-24 05:33] LABS: HEMOGLOBIN 8.2 gm/dL (12.0-16.0); MEAN CELL VOLUME 83.7 fL (80.0-105.0); MEAN CORPUSCULAR HEMOGLOBIN 27.9 pg (25.0-35.0); MEAN CORPUSCULAR HGB CONC 33.3 g/dl (31.0-37.0); MEAN PLATELET VOLUME 10.2 fl (7.0-11.0); RBC 2.94 10^6/uL (3.5-6.1); RED CELL DISTRIBUTION WIDTH 21.9 % (11.5-14.5); WHITE BLOOD COUNT 10.5 10^3/ul (4.5-11.0)
[2016-12-24 05:46] LABS: ALB/GLOB RATIO 0.9 (1.1-1.8); ALBUMIN 3.3 g/dL (3.0-4.8); ALT/SGPT 183 U/L (7-56); AST/SGOT 139 U/L (15-39); BLOOD UREA NITROGEN 5 mg/dL (7-21); CALCIUM 8.9 mg/dL (8.4-10.5); GFR AFRICAN-AMERICAN > 60; GFR NON-AFRICAN AMERICAN > 60
[2016-12-24 08:01] VITALS: BP 134/73; PULSE 72; RESP 19; TEMP 98.6; O2SAT 98
[2016-12-24 08:27] LABS: BILIRUBIN,DIRECT 5.2 mg/dL (0.0-0.4)
--- NOTE | 2016-12-24 09:06 | RAD ---
PROCEDURE: ERCP HISTORY: SPYGLASS STONES COMPARISON: ERCP 12/20/2016 TECHNIQUE: Fluoroscopic guidance was provided to the referring physician to in performing an ERCP examination. Seven spot fluoroscopic images of been submitted. 9 minutes 2 seconds are carcinomas utilized. FINDINGS: Initial spot fluoroscopic Skopic images demonstrate endoscope placed in the right upper quadrant with the apparen cannulation of the common bile duct and subsequent contrast opacification of the CBD as well as intrahepatic biliary tree, both of which appear dilated. Balloon sweep was apparently performed with plasty and stenting of the common bile duct upper appreciated via a lengthy stent extending into the intrahepatic ducts centrally. Please see operative report for further detail. IMPRESSION: Please see discussion above as well as operative report for greater detail.
[2016-12-24] MEDS: Sodium Chloride 0.9% 1,000 ML IV SCH (10:15)
--- NOTE | 2016-12-26 08:33 | DS ---
DATE: 12/24/2016 Patient admitted with obstructive jaundice. . Found that she had a larger stone impacted at the distal common bile duct. Dr. Carlos was called, and he performed ERCP as well as SpyGlass, and finally he put a stent of 10-[place] 9 cm and had symptomatically improved, but not completely down to normal value of the liver function test. PHYSICAL EXAMINATION: VITAL SIGNS: Today, she is afebrile. Vital signs are stable. ABDOMEN: Abdomen is soft, nontender, nondistended. Good bowel sounds. EXTREMITIES: All within normal limits. She is tolerating regular diet. LABORATORY DATA: Her white count today is 10.5 with hemoglobin 8, hematocrit 24, and platelet count of 390. Her enzyme today total bili is 6.4 with direct bili 5.2. AST and ALT are 139 and 83, alkaline phosphatase is down to 510. The plan for this patient, we are going to discharge the patient home with the stent. She is going to follow up as outpatient in the office. We will repeat her blood test and liver function test, enzymes, and then we will send the patient to Dr. Carlos for another SpyGlass, and then we will take it from at this moment. There is no discharge medication. Follow up regular diet. Angela Cordova MD
== END 2016-12-24 14:43 | disposition home or self-care (01) | DRG 208 ==
LOC: ED 09:28 → ERH 12:52 → 3RNO 13:56
PROVIDERS: ADMIT Surgery; ATTEND Surgery
PROC: 0DJ08ZZ Inspection of Upper Intestinal Tract, Via Natural or Artificial Opening Endoscopic (ICD-10-PCS; 2016-12-20)
PROC: 0F798DZ Dilation of Common Bile Duct with Intraluminal Device, Via Natural or Artificial Opening Endoscopic (ICD-10-PCS; 2016-12-20)
PROC: 0FC98ZZ Extirpation of Matter from Common Bile Duct, Via Natural or Artificial Opening Endoscopic (ICD-10-PCS; principal; 2016-12-23 14:00)
PROC: 0F9980Z Drainage of Common Bile Duct with Drainage Device, Via Natural or Artificial Opening Endoscopic (ICD-10-PCS; 2016-12-23 14:00)
PROC: 0DJ08ZZ Inspection of Upper Intestinal Tract, Via Natural or Artificial Opening Endoscopic (ICD-10-PCS; 2016-12-23 14:00)
PROC: 0F7C8DZ Dilation of Ampulla of Vater with Intraluminal Device, Via Natural or Artificial Opening Endoscopic (ICD-10-PCS; 2016-12-23 14:00)
DX: K80.51 Calculus of bile duct without cholangitis or cholecystitis with obstruction (principal); Z88.0 Allergy status to penicillin; R40.2412 Glasgow coma scale score 13-15, at arrival to emergency department; K80.61 Calculus of gallbladder and bile duct with cholecystitis, unspecified, with obstruction; K83.8 Other specified diseases of biliary tract

== ENCOUNTER 2017-02-02 21:30 | Observation (INO) | payer OTHER ==
[2017-02-02 21:31] VITALS: BMI 25.4
--- NOTE | 2017-02-02 21:48 | ED PDOC ---
Arrival/HPI - General Chief Complaint: Abdominal Pain Time Seen by Provider: 02/02/17 21:43 Historian: Patient - History of Present Illness Narrative History of Present Illness (Text): 02/02/17 21:48 Pati Bill is a 26 year old female, whose past medical history includes choledocholithiasis s/p biliary stent, who presents to the Emergency department complaining of upper abdominal pain for 3 days. Patient states pain has been gradually worsening and was sent in by her PMD for further evaluation. Patient denies any fever, chills, chest pain, shortness of breath, back pain, neck pain , headache, dizziness, or any other complaints. PMD: Dr. Mason GI: Dr. 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) - Renal Hx Renal Disorder: No - Endocrine/Metabolic Hx Endocrine Disorders: No - Hematological/Oncological Hx Blood Transfusions: (UNKNOWN) Hx Blood Transfusion Reaction: (UNKNOWN) - Integumentary Hx Dermatological Disorder: Yes (JAUNDICED-GB STONE) - Musculoskeletal/Rheumatological Hx Musculoskeletal Disorders: No Hx Falls: No - Gastrointestinal Hx Gastrointestinal Disorders: Yes Hx Gall Bladder Disease: Yes (CBD STONE 19 MM 12-19-16) - Genitourinary/Gynecological Hx Genitourinary Disorders: Yes (C/S X 1) - Psychiatric Hx Psychophysiologic Disorder: Yes (SUBSTANCE USE,DRINKS OCCASIONALLY) Hx Substance Use: Yes (SOCIALLY) - Anesthesia Hx Anesthesia Reactions: No Hx Malignant Hyperthermia: No Family/Social History - Physician Review Nursing Documentation Reviewed: Yes Family/Social History: Unknown Family HX Smoking Status: Never Smoked Hx Alcohol Use: Yes (ETOH USE OCCASIONALLY) Hx Substance Use: Yes (SOCIALLY) Allergies/Home Meds Allergies/Adverse Reactions: Allergies Penicillins Adverse Reaction (Verified 12/19/16 14:28) RASH Home Medications: Home Meds Medication Instructions Recorded Confirmed No Known Home Med 12/19/16 02/02/17 Review of Systems - Physician Review All systems were reviewed & negative as marked: Yes - Review of Systems Constitutional: Normal Eyes: Normal ENT: Normal Respiratory: Normal. absent: SOB Cardiovascular: Normal. absent: Chest Pain Gastrointestinal: Abdominal Pain Genitourinary Female: Normal. absent: Dysuria, Frequency, Urine Output Changes Musculoskeletal: Normal. absent: Neck Pain Skin: Normal. absent: Rash Neurological: Normal. absent: Headache, Dizziness Endocrine: Normal Hemo/Lymphatic: Normal Psychiatric: Normal Physical Exam Vital Signs Reviewed: Yes Vital Signs Temp Pulse Resp BP Pulse Ox 02/02/17 21:46 98.7 F 99 H 16 133/76 98 Temperature: Afebrile Blood Pressure: Normal Pulse: Regular Respiratory Rate: Normal Appearance: Positive for: Well-Appearing, Non-Toxic, Comfortable Pain Distress: None Mental Status: Positive for: Alert and Oriented X 3 - Systems Exam Head: Present: Atraumatic, Normocephalic Pupils: Present: PERRL Extroacular Muscles: Present: EOMI Conjunctiva: Present: Normal Mouth: Present: Moist Mucous Membranes Neck: Present: Normal Range of Motion Respiratory/Chest: Present: Clear to Auscultation, Good Air Exchange. No: Respiratory Distress, Accessory Muscle Use Cardiovascular: Present: Regular Rate and Rhythm, Normal S1, S2. No: Murmurs Abdomen: Present: Tenderness (Mild epigastric tenderness), Normal Bowel Sounds. No: Distention, Peritoneal Signs Back: Present: Normal Inspection Upper Extremity: Present: Normal Inspection. No: Cyanosis, Edema Lower Extremity: Present: Normal Inspection. No: Edema Neurological: Present: GCS=15, CN II-XII Intact, Speech Normal Skin: Present: Warm, Dry, Normal Color. No: Rashes Psychiatric: Present: Alert, Oriented x 3, Normal Insight, Normal Concentration Medical Decision Making ED Course and Treatment: 02/02/17 21:48 Impression: 26 year old female complaining of upper abdominal pain for 3 days. Plan: -- Labs, lipase, bilirubin -- Urinalysis -- IV fluids -- Reassess and disposition Prior Visits: Notes and results from previous visits were reviewed. On 12/19/2016, pt was seen in the Emergency department complaining of RUQ pain. Pt was admitted to the hospital for further evaluation. Progress Notes: 02/03/17 01:02 CT Abdomen and Pelvis With Intravenous Contrast : Creator : JOHNNA CASTAÑEDA FINDINGS: Lower thorax: Heart size is normal. Lung bases are clear ABDOMEN: Liver: No focal lesions are seen in the liver. Gallbladder and bile ducts: There is a structure suggesting collapsed gallbladder in the right upper quadrant. There is a biliary stent. Common duct is dilated in the joey hepatis. Common duct measures approximately 13 mm in diameter. There is only trace pneumobilia. There is mild prominence of the central intrahepatic biliary radicals. Pancreas: unremarkable Spleen: unremarkable Adrenals: unremarkable Kidneys and ureters: unremarkable Stomach and bowel: Stomach is almost empty. Rotation is normal. Small bowel is mildly dilated with air-fluid levels. Ileal loops in the pelvis are distended with fluid. Terminal ileum is collapsed. Appendix is unremarkable.Colon is incompletely distended which limits evaluation. Appendix: See stomach and bowel PELVIS: Bladder: Bladder is partially distended. Reproductive: Uterus and adnexal structures are unremarkable. There is moderate fluid in the cul-de-sac. There is a corpus luteum in the left ovary. ABDOMEN and PELVIS: Intraperitoneal space: There is no free air. Bones/joints: There are no acute osseous abnormalities Soft tissues: unremarkable Vasculature: Vascular structures are unremarkable. Lymph nodes: There is shotty adenopathy. IMPRESSION: Minimal pneumobilia with biliary stent; mildly dilated common duct in the joey hepatis with prominence of central intrahepatic radicals; no acute solid visceral abnormality; probable ileus, no obstruction; free fluid in the pelvis suggests recent cyst rupture, left corpus luteum 02/03/17 01:[address] mason called previously, requesting obs for abdominal pain. - Lab Interpretations Lab Results: 02/02/17 22:00 02/02/17 22:00 Lab Results 02/02/17 22:12: Urine Color Yellow, Urine Appearance Cloudy, Urine pH 6.5, Ur Specific [place] 1.025, Urine Protein 30 H, Urine Glucose (UA) Negative, Urine Ketones Trace H, Urine Blood Negative, Urine Nitrate Negative, Urine Bilirubin Negative, Urine Urobilinogen 1.0 H, Ur Leukocyte Esterase Negative, Urine RBC 0 - 2, Urine WBC 0 - 2, Ur Epithelial Cells 3 - 4, Urine Bacteria Few, Urine HCG, Qual Negative 02/02/17 22:00: PT 11.9 H, INR 1.10 H, APTT 31.2 H 02/02/17 22:00: WBC 5.2 D, RBC 3.94, Hgb 11.9 L, Hct 35.3 L, MCV 89.6, MCH 30.2 , MCHC 33.7, RDW 15.8 H, Plt Count 302, MPV 10.2, Gran % 30.6 L, Lymph % (Auto) 57.4 H, [place] % (Auto) 9.3 H, Eos % (Auto) 2.1, Baso % (Auto) 0.6, Gran # 1.58, Lymph # 3.0, [place] # 0.5, Eos # 0.1, Baso # 0.03 02/02/17 22:00: Sodium 141, Potassium 3.8, Chloride 105, Carbon Dioxide 25, Anion Gap 15, BUN 8, Creatinine 0.6, Est GFR ( Amer) > 60, Est GFR (Non- Af Amer) > 60, Random Glucose 99, Calcium 9.6, Total Bilirubin 1.1, Direct Bilirubin 0.9 H, AST 40 H, ALT 21, Alkaline Phosphatase 73, Total Protein 8.3, Albumin 4.7, Globulin 3.7, Albumin/Globulin Ratio 1.3, Lipase 72 I have reviewed the lab results: Yes - RAD Interpretation Radiology Orders: 02/02/17 22:39 ABD & PELVIS IV CONTRAST ONLY [CT] Stat - Medication Orders Current Medication Orders: Discontinued Medications Sodium Chloride (Sodium Chloride 0.9%) 1,000 mls @ 999 mls/hr IV .Q1H1M STA Stop: 02/02/17 22:49 Last Admin: 02/02/17 22:16 Dose: 999 mls/hr Iohexol (Omnipaque 350 100 Ml) Confirm Administered Dose 350 mg .ROUTE .K-MED ONE Stop: 02/02/17 22:47 - Scribe Statement The provider has reviewed the documentation as recorded by the Scribe Nikki De Los Santos All medical record entries made by the Scribe were at my direction and personally dictated by me. I have reviewed the chart and agree that the record accurately reflects my personal performance of the history, physical exam, medical decision making, and the department course for this patient. I have also personally directed, reviewed, and agree with the discharge instructions and disposition. Disposition/Present on Arrival - Present on Arrival Any Indicators Present on Arrival: No History of DVT/PE: No History of Uncontrolled Diabetes: No Urinary Catheter: No History of Decub. Ulcer: No History Surgical Site Infection Following: None - Disposition Have Diagnosis and Disposition been Completed?: Yes Diagnosis: Abdominal pain, Choledocholithiasis Disposition: HOSPITALIZED Disposition Time: 11:00 Condition: STABLE Forms: [employer] (Bulgarian)
[2017-02-02] MEDS ORDERED: Sodium Chloride 0.9% 1,000 ML IV STA (21:49)
[2017-02-02 22:26] LABS: PH,URINE 6.5 (4.7-8.0); URINE BILIRUBIN NEGATIVE (NEGATIVE); URINE BLOOD NEGATIVE (NEGATIVE); URINE GLUCOSE (UA) NEGATIVE (NEGATIVE); URINE KETONE TRACE mg/dL (NEGATIVE); URINE LEUKOCYTE ESTERASE NEGATIVE Leu/uL (NEGATIVE); URINE PROTEIN 30 mg/dL (<30 mg/dL)
[2017-02-02 22:28] LABS: BASO # 0.03 K/mm3 (0.0-2.0); BASO % 0.6 % (0.0-3.0); EOS # 0.1 (0.0-0.7); EOS % 2.1 % (1.5-5.0); GRAN # 1.58 (1.4-6.5); GRAN % 30.6 % (50.0-68.0); HEMATOCRIT 35.3 % (36.0-48.0); LYMPH % 57.4 % (22.0-35.0); MEAN CELL VOLUME 89.6 fl (80.0-105.0); MEAN CORPUSCULAR HEMOGLOBIN 30.2 pg (25.0-35.0); MEAN CORPUSCULAR HGB CONC 33.7 g/dl (31.0-37.0); MEAN PLATELET VOLUME 10.2 fl (7.0-11.0); MONO # 0.5 (0.1-0.6); MONO % 9.3 % (1.0-6.0); RED CELL DISTRIBUTION WIDTH 15.8 % (11.5-14.5); WHITE BLOOD COUNT 5.2 10^3/ul (4.5-11.0)
[2017-02-02 22:34] LABS: URINE APPEARANCE CLOUDY (CLEAR); URINE COLOR YELLOW (YELLOW)
[2017-02-02 22:34] LABS: ALB/GLOB RATIO 1.3 (1.1-1.8); ALKALINE PHOSPHATASE 73 U/L (38-126); ALT/SGPT 21 U/L (7-56); AST/SGOT 40 U/L (14-36); BILIRUBIN,DIRECT 0.9 mg/dL (0.0-0.4); BILIRUBIN,TOTAL 1.1 mg/dL (0.2-1.3); BLOOD UREA NITROGEN 8 mg/dL (7-21); CALCIUM 9.6 mg/dL (8.4-10.5); CARBON DIOXIDE 25 mmol/L (21-33); CHLORIDE 105 mmol/L (98-107); GFR AFRICAN-AMERICAN > 60; GLUCOSE,RANDOM 99 mg/dL (70-110); LIPASE 72 U/L (23-300); POTASSIUM 3.8 mmol/L (3.6-5.0); SODIUM 141 mmol/L (132-148); TOTAL PROTEIN 8.3 g/dL (5.8-8.3)
[2017-02-02 22:40] LABS: INR 1.1 (0.93-1.08); PARTIAL THROMBOPLASTIN TIME 31.2 Seconds (23.7-30.8)
[2017-02-02 22:41] LABS: URINE RBC 0 - 2 /hpf (0-2); URINE WBC 0 - 2 /hpf (0-6)
[2017-02-02 22:42] LABS: URINE BACTERIA FEW (NEG)
[2017-02-02] MEDS ORDERED: Iohexol 350 MG/100 ML VIAL ONE (22:46)
--- NOTE | 2017-02-03 00:55 | CT ---
EXAM: CT Abdomen and Pelvis With Intravenous Contrast EXAM DATE/TIME: 02/02/2017 10:39 PM CLINICAL HISTORY: 26 years old, female; Pain; Abdominal pain; Generalized; Prior surgery; Surgery type: Gallbladder removal; Additional info: Upper abd pain h/o of biliary stent TECHNIQUE: Axial computed tomography images of the abdomen and pelvis with intravenous contrast. All CT scans at this facility use one or more dose reduction techniques, viz.: automated exposure control; ma/kV adjustment per patient size (including targeted exams where dose is matched to indication; i.e. head); or iterative reconstruction technique. Coronal and sagittal reformatted images were created and reviewed. CONTRAST: 96 mL of OMNI 350 administered intravenously. COMPARISON: CT - PANCREATIC PROTOCOL 12/21/2016 1:17:14 PM FINDINGS: Lower thorax: Heart size is normal. Lung bases are clear ABDOMEN: Liver: No focal lesions are seen in the liver. Gallbladder and bile ducts: There is a structure suggesting collapsed gallbladder in the right upper quadrant. There is a biliary stent. Common duct is dilated in the joey hepatis. Common duct measures approximately 13 mm in diameter. There is only trace pneumobilia. There is mild prominence of the central intrahepatic biliary radicals. Pancreas: unremarkable Spleen: unremarkable Adrenals: unremarkable Kidneys and ureters: unremarkable Stomach and bowel: Stomach is almost empty. Rotation is normal. Small bowel is mildly dilated with air-fluid levels. Ileal loops in the pelvis are distended with fluid. Terminal ileum is collapsed. Appendix is unremarkable.Colon is incompletely distended which limits evaluation. Appendix: See stomach and bowel PELVIS: Bladder: Bladder is partially distended. Reproductive: Uterus and adnexal structures are unremarkable. There is moderate fluid in the cul-de-sac. There is a corpus luteum in the left ovary. ABDOMEN and PELVIS: Intraperitoneal space: There is no free air. Bones/joints: There are no acute osseous abnormalities Soft tissues: unremarkable Vasculature: Vascular structures are unremarkable. Lymph nodes: There is shotty adenopathy. IMPRESSION: Minimal pneumobilia with biliary stent; mildly dilated common duct in the joey hepatis with prominence of central intrahepatic radicals; no acute solid visceral abnormality; probable ileus, no obstruction; free fluid in the pelvis suggests recent cyst rupture, left corpus luteum Additional findings as described above.
[2017-02-03] MEDS ORDERED: Sodium Chloride 0.9% 1,000 ML IV SCH ×2 (02:15→13:15)
[2017-02-03] MEDS ORDERED: Pneumococcal 23-Valent Vaccine IM ONE (03:46)
[2017-02-03] MEDS ORDERED: Magnesium Citrate Oral SOL (300 ml) PO STA (09:01)
[2017-02-03] MEDS ORDERED: Bisacodyl 5mg EC Tab PO STA (09:01)
[2017-02-03] MEDS ORDERED: Indomethacin 50 MG Suppository PR ONE (13:13)
[2017-02-03] MEDS ORDERED: Iohexol 240 (50 ml) ONE (13:16)
[2017-02-03] MEDS ORDERED: levoFLOXacin 500 mg in D5W 500 MG/100 ML BAG IVPB ONE (14:13)
[2017-02-03] MEDS ORDERED: Propofol 10 mg/ml Inj (20 ML) ONE (14:40)
[2017-02-03] MEDS ORDERED: Rocuronium 10 mg/ml (5 ml) ONE (14:41)
[2017-02-03] MEDS ORDERED: Midazolam 2 MG/2 ML VIAL ONE (14:41)
[2017-02-03] MEDS ORDERED: ePHEDrine 50 mg/ml Inj ONE (16:16)
[2017-02-03] MEDS ORDERED: HYDROmorphone 0.5 mg/0.5 ml ISec IVP PRN (18:55)
[2017-02-03] MEDS ORDERED: Lactated Ringer's 1,000 ML IV SCH (18:55)
[2017-02-03] MEDS ORDERED: Oxycodone/Acetaminophen 5/325 mg Tab PO PRN (22:08)
--- NOTE | 2017-02-04 00:48 | CON ---
DATE: 02/03/2017 REASON FOR CONSULTATION: CBD stone, stent placement, abdominal pain. HISTORY OF PRESENT ILLNESS: This 26-year-old patient admitted initially in November with obstructive jaundice with a dilated common bile duct, had ERCP, sphincterotomy done. The patient had a large CBC stone measuring about 2 cm. He had a SpyGlass examination and electrohydraulic lithotripsy of the large stone. The patient has been having intermittent episodes of abdominal pain, came to the emergency room for worsening of the symptoms for the past 3 days. No fever. No vomiting or diarrhea. PAST MEDICAL HISTORY: Significant as above. The patient has a history of gallstone and due to dilated common bile duct nearly about 19 mm at present. With the significant intrahepatic dilation and common bile duct dilation. Had SpyGlass examination with sphincterotomy, stent placement with lithotripsy on 12/23. Other past medical history significant as above. SURGICAL HISTORY: Significant for . ALLERGIES: PENICILLIN. SOCIAL HISTORY: Denies any smoking. Alcohol socially. REVIEW OF SYSTEMS: Positive as above. All other systems reviewed. PHYSICAL EXAMINATION GENERAL: The patient is lying on the bed, not in acute distress. VITAL SIGNS: Temperature 98.3, pulse 73, blood pressure 104/54, and respirations 20. HEENT: Atraumatic, anicteric. NECK: Supple. HEART: S1 and S2 heard. LUNGS: Bilateral air entry present. ABDOMEN: Soft. There was no mass palpable. No tenderness. EXTREMITIES: No edema. No cyanosis. NEUROLOGIC: Alert and oriented and moves all extremities. LABORATORY DATA: Hemoglobin 11.9, hematocrit 35.3, WBC is 5.2, and platelets 302. Chemistry showed LFTs essentially unremarkable except AST 40. The patient had a CT scan of the abdomen and pelvis was done with p.o. and IV contrast, found to have improvement in the dilated common bile duct in the joey hepatis with prominence of the central intrahepatic radicles. IMPRESSION: This 26-year-old patient with largely dilated common hepatic duct and right and left hepatic duct, significantly narrowed distal common bile duct, had a large stone in the common bile duct, status post SpyGlass lithotripsy of the stones done on 12/23. The patient is now admitted with recurring abdominal pain, worsening about 3 days. The patient's bilirubin was 22 on initial admission. Now is normalized. The concern is now to positively validate the anatomy; one of the consideration initially we had with this imaging study review was whether it is a Mirizzi syndrome, but the evaluation of the common bile duct by the imaging study was not very clear and if SpyGlass image interpretation was slightly affected by the significant amount of contrast present during the ERCP. We would recommend; 1. Citrate of magnesium bottle to clear out the bowel. 2. Schedule for ERCP and SpyGlass examination. 3. We will give prophylactic antibiotic in view of this affected duct. Thank you very much for allowing me to participate in the care of the patient. We will continue to closely follow up his care and suggest further management based on the clinical course. Alexus Carlos MD
--- NOTE | 2017-02-04 01:44 | HP ---
REASON FOR ADMISSION: Right upper quadrant pain with chololithiasis, obstructive jaundice. HISTORY OF PRESENT ILLNESS: This is a 26 years old female who had a history of chololithiasis and choledocholithiasis. She is status post stent placement in the common bile duct by Dr. Carlos and sphincterotomy and SpyGlass, breakdown of some stones in the common bile duct. She has been complaining of pain in right upper quadrant, recurrent in nature associated with obstructive jaundice. Her initial total bilirubin on the first admission was 23, currently is almost 1. She denies any itching. She denies any yellow discoloration of the skin and she denies any change in the stool or urine color. PAST MEDICAL HISTORY: None. PAST SURGICAL HISTORY: None. ALLERGIES: NONE. HOME MEDICATION: None. SOCIAL HISTORY: No smoking, no drinking and no drug abuse. FAMILY HISTORY: Noncontributory. PHYSICAL EXAMINATION HEENT: She is atraumatic and normocephalic. Normal . No pallor. No Jaundice. CHEST: Clear to auscultation bilaterally. No wheezes. No crepitations. ABDOMEN: Soft, tender in the left upper quadrant, but no rebound, no guarding and no peritonitis. EXTREMITIES: All within normal limits. LABORATORY DATA: Her white count is 5.2, hemoglobin 11.9, hematocrit 35.3, and platelet count of 3.2 and shift not recorded. Her PT 11.9, INR is 1.1 and PTT is 31. Her chemistry with sodium 141, potassium is 3.8, BUN is 8, creatinine is 0.6 and total bili 1.1 and direct bili is 0.9. AST 40, ALT 21. Amylase and lipase are normal. Urine is negative for urinary tract infection. The patient had a CT scan that was consistent with pneumobilia which is expected from previous stent placement, otherwise no thickening in the gallbladder. Mild dilated common bile duct at the joey hepatis, but no obstruction. ASSESSMENT: Recurrent biliary colic status post stent placement for choledocholithiasis. PLAN: 1. We will admit for observation. 2. Consultation with GI, Dr. Carlos, possible repeat ERCP, possible repeat cholangiogram, possible repeat SpyGlass. 3. N.p.o. for now with antibiotics and procedure. 4. Will determine the next move after the ERCP. Angela Cordova MD [facility] # [id number]
[2017-02-04 07:23] LABS: EOS % 0.1 % (1.5-5.0); GRAN # 11.99 (1.4-6.5); GRAN % 87.4 % (50.0-68.0); HEMATOCRIT 33.1 % (36.0-48.0); LYMPH # 0.8 (1.2-3.4); LYMPH % 6.1 % (22.0-35.0); MEAN CELL VOLUME 89.7 fl (80.0-105.0); MEAN CORPUSCULAR HEMOGLOBIN 29.5 pg (25.0-35.0); MEAN CORPUSCULAR HGB CONC 32.9 g/dl (31.0-37.0); MEAN PLATELET VOLUME 10.6 fl (7.0-11.0); MONO # 0.9 (0.1-0.6); MONO % 6.4 % (1.0-6.0); RED CELL DISTRIBUTION WIDTH 15.3 % (11.5-14.5); WHITE BLOOD COUNT 13.7 10^3/ul (4.5-11.0)
[2017-02-04 07:42] LABS: ALB/GLOB RATIO 1.1 (1.1-1.8); ALKALINE PHOSPHATASE 154 U/L (38-126); ALT/SGPT 306 U/L (7-56); AST/SGOT 437 U/L (14-36); BILIRUBIN,DIRECT 1.7 mg/dL (0.0-0.4); BILIRUBIN,TOTAL 2.3 mg/dL (0.2-1.3); BLOOD UREA NITROGEN 3 mg/dL (7-21); CALCIUM 8.7 mg/dL (8.4-10.5); CARBON DIOXIDE 21 mmol/L (21-33); CHLORIDE 108 mmol/L (98-107); GFR AFRICAN-AMERICAN > 60; GLUCOSE,RANDOM 113 mg/dL (70-110); POTASSIUM 3.7 mmol/L (3.6-5.0); SODIUM 139 mmol/L (132-148); TOTAL PROTEIN 6.8 g/dL (5.8-8.3)
[2017-02-04 08:31] LABS: AMYLASE 53 U/L (35-125); LIPASE 108 U/L (23-300)
[2017-02-04] MEDS ORDERED: levoFLOXacin 500 mg in D5W 500 MG/100 ML BAG IVPB SCH (10:00)
[2017-02-04 10:16] LABS: ALB/GLOB RATIO 1.1 (1.1-1.8); ALKALINE PHOSPHATASE 157 U/L (38-126); ALT/SGPT 309 U/L (7-56); AST/SGOT 372 U/L (14-36); BILIRUBIN,TOTAL 2.4 mg/dL (0.2-1.3); BLOOD UREA NITROGEN 3 mg/dL (7-21); CARBON DIOXIDE 23 mmol/L (21-33); CHLORIDE 106 mmol/L (98-107); GFR AFRICAN-AMERICAN > 60; GLUCOSE,RANDOM 107 mg/dL (70-110); POTASSIUM 3.6 mmol/L (3.6-5.0); SODIUM 138 mmol/L (132-148); TOTAL PROTEIN 6.9 g/dL (5.8-8.3)
[2017-02-04 16:37] VITALS: RESP 18; O2SAT 100
--- NOTE | 2017-02-05 00:16 | PN ---
DATE: 02/04/2017 SUBJECTIVE: This patient was seen and evaluated earlier. The patient had a status post ERCP, SpyGlass evaluation and electrohydraulic lithotripsy of a large CBD stone yesterday and appears comfortable. No complaints of any abdominal pain. At the time of the examination, the patient already had lunch and she is tolerating. PHYSICAL EXAMINATION: VITAL SIGNS: Temperature low grade is 100.3 T-max; blood pressure 144/93, respirations 20, and O2 saturation is 98%. HEENT: Atraumatic and anicteric. NECK: Supple. HEART: S1 and S2. LUNGS: Bilateral air entry present. ABDOMEN: Soft. There is no tenderness. EXTREMITIES: No edema. No cyanosis. NEUROLOGICAL: Alert, oriented, and moves all the extremities. LABORATORY DATA: WBC count has elevated to 13.7, it was 5.2 on admission; hemoglobin 10.9; hematocrit 33.1, and platelets 231. Liver enzymes appear to have significantly elevated. Total bilirubin 2.4, direct 1.7, AST 372, ALT 309, and alkaline phosphatase 157. Amylase and lipase normal. IMPRESSION AND PLAN: This 26-year-old patient who underwent endoscopic retrograde cholangiopancreatography SpyGlass evaluation, electrohydraulic lithotripsy of common bile duct stone, was found to have also a stricture just below the stone. The patient have a multiple fragments removed by balloon sweep, but there are some debris left behind, so patient had another stent was placed. Has now elevated liver function tests, has a low-grade fever, and would advance the diet. Possibility of cholangitis to be considered. Would recommend; 1. Continue the antibiotics, Levaquin. PATIENT IS ALLERGIC TO PENICILLIN. 2. Followup of the liver function tests. 3. Patient would need a repeat endoscopic retrograde cholangiopancreatography for removal of the stent and after biliary dilatation. Further hospital course will be decided based on his clinical course and followup of the liver function tests. Patient need to be continued on IV antibiotics at the present time. We will continue the inpatient hospital care. Thank you very much for allowing me to the participate in the care of the patient. Alexus Carlos MD [facility] # [id number]
--- NOTE | 2017-02-05 01:18 | PN ---
DATE: 02/04/2017 SUBJECTIVE: The patient is status post ERCP, stenting of the common bile duct and SpyGlass and removal of common bile duct stone and also dilatation of the common bile duct. Postop day #1, the patient is asymptomatic. Denies any pain. No fever. No chills. She is tolerating clear liquid diet. She is up and ambulating. PHYSICAL EXAMINATION: ABDOMEN: Soft, nontender, nondistended. Good bowel sounds. LABORATORY DATA: Her white count today is 15.7, up from 5.2: hemoglobin 11; hematocrit 33; and platelet count of 231 and granulocyte of 87%. Her chemistry was repeated today also with a sodium 139, potassium is 3.7, chloride is 108, BUN is 3, creatinine 0.5, total bilirubin 2.3, direct bilirubin is 1.7. AST is 437, ALT is 306, and alkaline phosphatase is 154. Amylase and lipase is 53 and 108 which is normal. ASSESSMENT: Continue to do well, but it has mild elevation of the liver function enzyme, obstructive symptoms, so we are going to continue with a clear liquid diet, probably advance after repeating her labs, and we will reassess the labs tomorrow. The patient will be advanced to low-fat diet and possible discharge tomorrow. Angela Cordova MD cc: Alexus Carlos MD
[2017-02-05 06:35] LABS: BASO # 0.01 K/mm3 (0.0-2.0); BASO % 0.2 % (0.0-3.0); EOS # 0.2 (0.0-0.7); EOS % 3.2 % (1.5-5.0); GRAN # 4.39 (1.4-6.5); GRAN % 67.9 % (50.0-68.0); HEMATOCRIT 33.1 % (36.0-48.0); LYMPH # 1.3 (1.2-3.4); LYMPH % 19.3 % (22.0-35.0); MEAN CELL VOLUME 88.7 fl (80.0-105.0); MEAN CORPUSCULAR HEMOGLOBIN 29.5 pg (25.0-35.0); MEAN CORPUSCULAR HGB CONC 33.2 g/dl (31.0-37.0); MEAN PLATELET VOLUME 10.8 fl (7.0-11.0); MONO # 0.6 (0.1-0.6); MONO % 9.4 % (1.0-6.0); RED CELL DISTRIBUTION WIDTH 15.1 % (11.5-14.5); WHITE BLOOD COUNT 6.5 10^3/ul (4.5-11.0)
[2017-02-05 06:58] LABS: ALB/GLOB RATIO 1.1 (1.1-1.8); BILIRUBIN,DIRECT 0.9 mg/dL (0.0-0.4); BILIRUBIN,TOTAL 1.2 mg/dL (0.2-1.3); TOTAL PROTEIN 7.2 g/dL (5.8-8.3)
[2017-02-05 08:40] VITALS: BP 123/80; PULSE 99; TEMP 98.6
--- NOTE | 2017-02-06 07:23 | DS ---
Please include copy of the admission notes to the discharge summary. HISTORY OF PRESENT ILLNESS: Patient is admitted with obstructive jaundice, abdominal pain. She was taken by Dr. Carlos for ERCP and stenting of the common bile duct due to stricture and removal of stone. She did well after the surgery. The following day after the surgery, she had increase in the liver enzyme for which she was treated conservatively and she did well today. No complaints. PHYSICAL EXAMINATION: ABDOMEN: Soft, nontender, nondistended with good bowel sounds. LABORATORY DATA: Her white count is 6.5, which is down from 13.7 with hemoglobin 11, hematocrit 33 and platelet count of 232 and granulocyte of 68%. Her chemistry is also improved. Her total bilirubin down to 1.2, direct 0.9. AST is 168, ALT is 250 and alkaline phosphatase is 130. ASSESSMENT: The patient continued to do well. PLAN: We will discharge the patient home. No medication is needed. Follow up with Dr. Cordova's office as well as Dr. Carlos's office. Angela Cordova MD cc: Alexus Carlos MD
--- NOTE | 2017-02-07 19:13 | RAD ---
PROCEDURE: ERCP HISTORY: ? CBD OBST COMPARISON: 02/03/2017. ERCP. 02/03/2017 CT abdomen and pelvis. TECHNIQUE: Standard protocol for this study/examination. FINDINGS: Total fluoroscopic time (continuous mode) utilized during the procedure: 1007.1 seconds IMPRESSION: Submitted images from the current procedure: 17.0. Less than 1 hr fluoroscopic time utilized during performance of the procedure.
== END 2017-02-05 10:21 | disposition home or self-care (01) ==
LOC: ED 21:30 → ERH 02-03 00:56 → 3RSO 02-03 03:31
PROVIDERS: ADMIT Surgery; ATTEND Surgery
DX: K80.51 Calculus of bile duct without cholangitis or cholecystitis with obstruction (principal); Z88.0 Allergy status to penicillin
CPT/HCPCS: 36415; 43265; 43276; 74177; 74330; 80053; 80076; 81001; 82150; 82248; 83690; 84703; 85025; 85610; 85730; 96365; 99284; C1726; C1876; C2625; G0378; J2001; J2250; J2405; J2704; J2765; J3010; J7040; Q9966; Q9967

== ENCOUNTER 2017-02-20 21:04 | Inpatient (IN) | payer OTHER ==
[2017-02-20 21:04] VITALS: BMI 25.4
--- NOTE | 2017-02-20 21:50 | ED PDOC ---
Arrival/HPI - General Chief Complaint: GI Problem Time Seen by Provider: 02/20/17 21:45 Historian: Patient - History of Present Illness Narrative History of Present Illness (Text): 02/20/17 21:50 Pati Bill is a 26 year old female, whose past medical history includes choledocholithiasis s/p biliary stent, who presents to the Emergency department complaining of upper abdominal pain with nausea and vomiting since earlier today. Patient denies any fever, chills, chest pain, shortness of breath, diarrhea, urinary symptoms, back pain, neck pain, headache, dizziness, or any other complaints. PMD: Dr. Jesus Castillo GI: Dr. Carlos Surgery: Dr. Cordova Symptom Onset: Gradual Symptom Course: Unchanged Activities at Onset: Light Context: Home Past Medical History - Provider Review Nursing Documentation Reviewed: Yes - Infectious Disease Hx of Infectious Diseases: None - Cardiac Hx Cardiac Disorders: No - Pulmonary Hx Respiratory Disorders: No - Neurological Hx Neurological Disorder: No - HEENT Hx HEENT Disorder: Yes (ICTERIC SCHLERAE-DX WITH CBD STONE) - Renal Hx Renal Disorder: No - Endocrine/Metabolic Hx Endocrine Disorders: No - Hematological/Oncological Hx Blood Transfusions: (UNKNOWN) Hx Blood Transfusion Reaction: (UNKNOWN) - Integumentary Hx Dermatological Disorder: Yes (JAUNDICED-GB STONE) - Musculoskeletal/Rheumatological Hx Falls: No - Gastrointestinal Hx Gastrointestinal Disorders: Yes Hx Gall Bladder Disease: Yes (CBD STONE 19 MM 12-19-16) - Genitourinary/Gynecological Hx Genitourinary Disorders: Yes (C/S X 1) - Psychiatric Hx Psychophysiologic Disorder: Yes (SUBSTANCE USE,DRINKS OCCASIONALLY) Hx Substance Use: Yes (SOCIALLY) - Surgical History Hx Section: Yes (x1) Other/Comment: stents for gallstones - Anesthesia Hx Anesthesia: Yes Hx Anesthesia Reactions: No Hx Malignant Hyperthermia: No Family/Social History - Physician Review Nursing Documentation Reviewed: Yes Family/Social History: Unknown Family HX Smoking Status: Never Smoked Hx Alcohol Use: Yes (ETOH USE OCCASIONALLY) Frequency of alcohol use: Socially Hx Substance Use: Yes (SOCIALLY) Substance used: marijuana Allergies/Home Meds Allergies/Adverse Reactions: Allergies Penicillins Adverse Reaction (Verified 12/19/16 14:28) RASH Home Medications: Home Meds Medication Instructions Recorded Confirmed No Known Home Med 12/19/16 02/20/17 Review of Systems - Physician Review All systems were reviewed & negative as marked: Yes - Review of Systems Constitutional: Normal. absent: Fevers Eyes: Normal ENT: Normal Respiratory: Normal. absent: SOB, Cough Cardiovascular: Normal. absent: Chest Pain Gastrointestinal: Abdominal Pain, Nausea, Vomiting. absent: Diarrhea Genitourinary Female: Normal. absent: Dysuria, Frequency, Hematuria, Urine Output Changes Musculoskeletal: Normal. absent: Back Pain, Neck Pain Skin: Normal. absent: Rash Neurological: Normal. absent: Headache, Dizziness Endocrine: Normal Hemo/Lymphatic: Normal Psychiatric: Normal Physical Exam Vital Signs Reviewed: Yes Vital Signs Temp Pulse Resp BP Pulse Ox 02/21/17 00:52 99.4 F 66 18 126/66 99 02/20/17 21:28 98.7 F 69 18 124/75 98 Temperature: Afebrile Blood Pressure: Normal Pulse: Regular Respiratory Rate: Normal Appearance: Positive for: Well-Appearing, Non-Toxic, Comfortable Pain Distress: None Mental Status: Positive for: Alert and Oriented X 3 - Systems Exam Head: Present: Atraumatic, Normocephalic Pupils: Present: PERRL Extroacular Muscles: Present: EOMI Conjunctiva: Present: Normal Mouth: Present: Moist Mucous Membranes Neck: Present: Normal Range of Motion Respiratory/Chest: Present: Clear to Auscultation, Good Air Exchange. No: Respiratory Distress, Accessory Muscle Use Cardiovascular: Present: Regular Rate and Rhythm, Normal S1, S2. No: Murmurs Abdomen: Present: Normal Bowel Sounds. No: Tenderness, Distention, Peritoneal Signs Back: Present: Normal Inspection Upper Extremity: Present: Normal Inspection. No: Cyanosis, Edema Lower Extremity: Present: Normal Inspection. No: Edema Neurological: Present: GCS=15, CN II-XII Intact, Speech Normal Skin: Present: Warm, Dry, Normal Color. No: Rashes Psychiatric: Present: Alert, Oriented x 3, Normal Insight, Normal Concentration Medical Decision Making ED Course and Treatment: 02/20/17 21:50 Impression: 26 year old female complaining of upper abdominal pain with nausea and vomiting today. Differential Diagnosis included but are not limited to: choleducolithiasis vs. pancreatitis Plan: -- US Gallbladder and Pancreas -- Labs, lipase -- IV fluids -- Zofran -- Pepcid -- Reassess and disposition Prior Visits: Notes and results from previous visits were reviewed. On 02/02/2017, pt was seen in the Emergency department for upper abdominal pain. Pt was admitted to the hospital for further evaluation. Progress Notes: 02/21/17 01:27 Reviewed sono, US Gallbladder and Pancreas shows: Liver: Normal echogenicity. No mass. No intrahepatic bile duct dilatation. Gallbladder: Contracted. Gallstones. No wall thickening. No pericholecystic fluid. No sonographic Hickey's sign. Common bile duct: Up to 0.80 cm in diameter. Stent. Few stones, up to 1.4 cm. Pancreas: Unremarkable as visualized. Right kidney: Normal echogenicity. No hydronephrosis. IMPRESSION: 1. Cholelithiasis. 2. Choledocholithiasis. 02/21/17 01:[address] Heredia, medical oncology physician information technology associate, who is aware and agrees with plan. Case discussed with Dr. Hussein, who is aware and agrees with plan. Accepts pt in to hospitalist service. Pt will go to [facility] observation for gallstone pancreatitis. Pt in no acute distress. Discussed results and hospital observation plan with pt , who is aware and verbalizes understanding. - Lab Interpretations Lab Results: 02/20/17 22:35 02/20/17 22:35 Lab Results 02/20/17 22:35: WBC 7.6, RBC 3.95, Hgb 11.9 L, Hct 35.0 L, MCV 88.6, MCH 30.1, MCHC 34.0, RDW 14.4, Plt Count 288, MPV 10.6 02/20/17 22:35: Sodium 139, Potassium 3.5 L, Chloride 103, Carbon Dioxide 25, Anion Gap 15, BUN 5 L, Creatinine 0.5, Est GFR ( Amer) > 60, Est GFR (Non -Af Amer) > 60, Random Glucose 92, Calcium 9.6, Total Bilirubin 0.9, AST 27, ALT 36, Alkaline Phosphatase 78, Total Protein 7.9, Albumin 4.2, Globulin 3.7, Albumin/Globulin Ratio 1.1, Lipase 856 H 02/20/17 21:55: Urine Color Yellow, Urine Appearance Clear, Urine pH 6.5, Ur Specific [place] 1.025, Urine Protein 30 H, Urine Glucose (UA) Negative, Urine Ketones Trace H, Urine Blood Negative, Urine Nitrate Negative, Urine Bilirubin Negative, Urine Urobilinogen 1.0 H, Ur Leukocyte Esterase Negative, Urine RBC 0 - 2, Urine WBC 0 - 2, Ur Epithelial Cells Many, Urine Bacteria Small, Urine HCG , Qual Negative I have reviewed the lab results: Yes - RAD Interpretation Radiology Orders: 02/20/17 21:51 GALLBLADDER & PANCREAS [US] Stat Concrete Form Setter: Radiologist - Medication Orders Current Medication Orders: Discontinued Medications Famotidine (Pepcid) 20 mg IVP STAT STA Stop: 02/20/17 21:53 Last Admin: 02/20/17 22:23 Dose: 20 mg IVP Administration Document 02/20/17 22:23 SF (Rec: 02/20/17 22:[address] [email or web address]) Charges for Administration # of IVP Administrations 1 Sodium Chloride (Sodium Chloride 0.9%) 1,000 mls @ 999 mls/hr IV .Q1H1M STA Stop: 02/20/17 22:51 Last Admin: 02/20/17 22:22 Dose: 999 mls/hr eMAR Start Stop Document 02/20/17 22:22 SF (Rec: 02/20/17 22:[address] [email or web address]) Intravenous Solution Start Date 02/20/17 Start Time 22:22 End Date 02/20/17 End time 23:23 Total Infusion Time 61 Ondansetron HCl (Zofran Inj) 4 mg IVP ONCE ONE Stop: 02/20/17 21:53 Last Admin: 02/20/17 22:22 Dose: 4 mg IVP Administration Document 02/20/17 22:22 SF (Rec: 02/20/17 22:22 [email or web address] Charges for Administration # of IVP Administrations 1 - Scribe Statement The provider has reviewed the documentation as recorded by the Cruzito De Los Santos Provider Scribe Attestation: All medical record entries made by the Scribe were at my direction and personally dictated by me. I have reviewed the chart and agree that the record accurately reflects my personal performance of the history, physical exam, medical decision making, and the department course for this patient. I have also personally directed, reviewed, and agree with the discharge instructions and disposition. Disposition/Present on Arrival - Present on Arrival Any Indicators Present on Arrival: No History of DVT/PE: No History of Uncontrolled Diabetes: No Urinary Catheter: No History of Decub. Ulcer: No History Surgical Site Infection Following: None - Disposition Have Diagnosis and Disposition been Completed?: Yes Diagnosis: Choledocholithiasis, Abdominal pain, Gallstone pancreatitis Disposition: HOSPITALIZED Disposition Time: 01:46 Condition: STABLE Referrals: Luis Felipe Castillo MD [Primary Care Provider] - Follow up with primary Forms: [facility] ([place])
[2017-02-20] MEDS ORDERED: Sodium Chloride 0.9% 1,000 ML IV STA (21:51)
[2017-02-20 22:03] LABS: PH,URINE 6.5 (4.7-8.0); URINE BILIRUBIN NEGATIVE (NEGATIVE); URINE BLOOD NEGATIVE (NEGATIVE); URINE GLUCOSE (UA) NEGATIVE (NEGATIVE); URINE KETONE TRACE mg/dL (NEGATIVE); URINE LEUKOCYTE ESTERASE NEGATIVE Leu/uL (NEGATIVE); URINE PROTEIN 30 mg/dL (<30 mg/dL)
[2017-02-20 22:05] LABS: URINE APPEARANCE CLEAR (CLEAR); URINE COLOR YELLOW (YELLOW)
[2017-02-20 22:36] LABS: URINE BACTERIA SMALL (NEG); URINE EPITHELIAL CELLS MANY /hpf (0-5); URINE RBC 0 - 2 /hpf (0-2); URINE WBC 0 - 2 /hpf (0-6)
[2017-02-20 22:47] LABS: MEAN CELL VOLUME 88.6 fl (80.0-105.0); MEAN CORPUSCULAR HEMOGLOBIN 30.1 pg (25.0-35.0); MEAN PLATELET VOLUME 10.6 fl (7.0-11.0); RED CELL DISTRIBUTION WIDTH 14.4 % (11.5-14.5); WHITE BLOOD COUNT 7.6 10^3/ul (4.5-11.0)
[2017-02-20 22:51] LABS: ALB/GLOB RATIO 1.1 (1.1-1.8); ALKALINE PHOSPHATASE 78 U/L (38-126); ALT/SGPT 36 U/L (7-56); AST/SGOT 27 U/L (14-36); BILIRUBIN,TOTAL 0.9 mg/dL (0.2-1.3); BLOOD UREA NITROGEN 5 mg/dL (7-21); CALCIUM 9.6 mg/dL (8.4-10.5); CARBON DIOXIDE 25 mmol/L (21-33); CHLORIDE 103 mmol/L (95-110); GFR AFRICAN-AMERICAN > 60; GLUCOSE,RANDOM 92 mg/dL (70-110); LIPASE 856 U/L (23-300); POTASSIUM 3.5 mmol/L (3.6-5.0); SODIUM 139 mmol/L (132-148); TOTAL PROTEIN 7.9 g/dL (5.8-8.3)
--- NOTE | 2017-02-21 00:18 | US ---
EXAM: US Abdomen Limited, Right Upper Quadrant CLINICAL HISTORY: 26 years old, female; Pain; Abdominal pain; Generalized; Prior surgery; Surgery date: <1 month; Surgery type: Cbd stent; Additional info: Upper abdominal pain TECHNIQUE: Real-time ultrasound of the right upper quadrant with image documentation. COMPARISON: CT - PANCREATIC PROTOCOL 12/21/2016 1:17:14 PM FINDINGS: Liver: Normal echogenicity. No mass. No intrahepatic bile duct dilatation. Gallbladder: Contracted. Gallstones. No wall thickening. No pericholecystic fluid. No sonographic Hickey's sign. Common bile duct: Up to 0.80 cm in diameter. Stent. Few stones, up to 1.4 cm. Pancreas: Unremarkable as visualized. Right kidney: Normal echogenicity. No hydronephrosis. IMPRESSION: 1. Cholelithiasis. 2. Choledocholithiasis.
[2017-02-21] MEDS: Sodium Chloride 0.9% 1,000 ML IV SCH ×3 (02:45→20:52)
[2017-02-21] MEDS: Morphine 2 mg/ml ISec IVP PRN ×2 (03:09→10:30)
--- NOTE | 2017-02-21 03:43 | CP.PCM.HP ---
<GiovannaAndrew - Last Filed: 02/21/17 03:51> History of Present Illness - History of Present Illness History of Present Illness: IM H/P - TKS DO, PGY-1 CC: Abdominal Pain HPI: 26 F PMHx pertinent for recent CBD stent placement and gall stones, presents with 1 day duration of sharp epigastric abdominal pain radiating to her back between her shoulder blades of 9/10 that is made worse by laying flat and has associated symptoms of n/v. Patient states that she has never had this kind of pain before. Pt denies f/ch/cp/sob/d. Pt denies abdominal pain, hematuria, urinary changes. No further complaints. PSH: CSXN, CBD stent placement PMH: Gall stones All: PCN SocHx: +EtOH, +Marijuana; No tobacco FamHx: Non-contributory Meds: None Present on Admission - Present on Admission Any Indicators Present on Admission: No Review of Systems - Hematologic/Lymphatic Additional comments: ROS: Constitutional: pt denies fever, chills, generalized weakness ENT: pt denies dysphagia, otalgia, hearing deficit, rhinorrhea Eyes: pt denies sudden loss of vision, diplopia, blurred vision MSK: pt denies muscle stiffness, joint pain, extremity cramping Cardio: pt denies sob, heart murmur, cp Pulm: pt denies cough, hemoptysis, wheeze GI: +SEE HPI : pt denies burning on urination, urinary frequency, hematuria, urinary urgency Neuro: pt denies paresis, paresthesia, dizziness, contreras, numbness, tingling Derm: pt denies skin changes, lesions, nail changes Endo: pt denies intolerance to heat/cold, diaphoresis, night sweats, polydipsia Psych: pt denies anxiety, depression, mood changes Past Patient History - Infectious Disease Hx of Infectious Diseases: None - Past Social History Smoking Status: Never Smoked - CARDIAC Hx Cardiac Disorders: No - PULMONARY Hx Respiratory Disorders: No - NEUROLOGICAL Hx Neurological Disorder: No - HEENT Hx HEENT Problems: Yes (ICTERIC SCHLERAE-DX WITH CBD STONE) - RENAL Hx Chronic Kidney Disease: No - ENDOCRINE/METABOLIC Hx Endocrine Disorders: No - HEMATOLOGICAL/ONCOLOGICAL Hx Blood Transfusions: (UNKNOWN) Hx Blood Transfusion Reaction: (UNKNOWN) - INTEGUMENTARY Hx Dermatological Problems: Yes (JAUNDICED-GB STONE) - MUSCULOSKELETAL/RHEUMATOLOGICAL Hx Falls: No - GASTROINTESTINAL Hx Gastrointestinal Disorders: Yes Hx Gall Bladder Disease: Yes (CBD STONE 19 MM 12-19-16) - GENITOURINARY/GYNECOLOGICAL Hx Genitourinary Disorders: Yes (C/S X 1) - PSYCHIATRIC Hx Psychophysiologic Disorder: Yes (SUBSTANCE USE,DRINKS OCCASIONALLY) Hx Substance Use: Yes (SOCIALLY) - SURGICAL HISTORY Hx Section: Yes (x1) Other/Comment: stents for gallstones - ANESTHESIA Hx Anesthesia: Yes Hx Anesthesia Reactions: No Hx Malignant Hyperthermia: No Meds Allergies/Adverse Reactions: Allergies Allergy/AdvReac Type Severity Reaction Status Date / Time Penicillins AdvReac RASH Verified 12/19/16 14:28 Physical Exam - Additional Findings Additional findings: Phys Exam: VS as below Constitutional: a&o x 4, nad Head and Neck: neck supple, no jvd, trachea midline, carotid midline, no cervical/head mass Eyes: clau, nonicteric sclera, eom intact ENT: auditory acuity grossly intact, throat not congested, no nasal deformity Cardio: rrr, no m/r/g, no carotid bruit, nml s1, s2 Pulm: no accessory muscle use, equal nml breath sounds bilaterally, ctab Abd: +Epigastric TTP; s/nd, nbs x 4 q, no palpable masses Derm: no rashes, no ulcers, no lesions Extr: no edema, no cyanosis, no calf tenderness, no lesions, no varicosities Neuro: cn II-XII grossly intact, ue and le 5/5 muscle strength~bilaterally, no los ue, le bilaterally and core Results - Vital Signs Recent Vital Signs: Last Vital Signs Temp 99.4 F 02/21/17 00:52 Pulse 66 02/21/17 00:52 Resp 18 02/21/17 00:52 BP 126/66 02/21/17 00:52 Pulse Ox 99 02/21/17 00:52 - Labs Result Diagrams: 02/20/17 22:35 02/20/17 22:35 Labs: Laboratory Results - last 24 hr 02/20/17 02/20/17 02/20/17 21:55 22:35 22:35 WBC 7.6 RBC 3.95 Hgb 11.9 L Hct 35.0 L MCV 88.6 MCH 30.1 MCHC 34.0 RDW 14.4 Plt Count 288 MPV 10.6 Sodium 139 Potassium 3.5 L Chloride 103 Carbon Dioxide 25 Anion Gap 15 BUN 5 L Creatinine 0.5 Est GFR ( Amer) > 60 Est GFR (Non-Af Amer) > 60 Random Glucose 92 Calcium 9.6 Total Bilirubin 0.9 AST 27 ALT 36 Alkaline Phosphatase 78 Total Protein 7.9 Albumin 4.2 Globulin 3.7 Albumin/Globulin Ratio 1.1 Lipase 856 H Urine Color Yellow Urine Appearance Clear Urine pH 6.5 Ur Specific [place] 1.025 Urine Protein 30 H Urine Glucose (UA) Negative Urine Ketones Trace H Urine Blood Negative Urine Nitrate Negative Urine Bilirubin Negative Urine Urobilinogen 1.0 H Ur Leukocyte Esterase Negative Urine RBC 0 - 2 Urine WBC 0 - 2 Ur Epithelial Cells Many Urine Bacteria Small Urine HCG, Qual Negative Assessment & Plan - Assessment and Plan (Free Text) Assessment: A/P 26 F with GS Pancreatitis GS Pancreatitis - NPO - NS @ 150 cc/hr - Morphine - Zofran - AM Labs: CBC, CMP, Mg, Phos - GI c/s: Breanna - No need for ABx, as patient does not have a WC and is afebrile PPX - Protonix/SCD <Jovita PEPE,Justyn - Last Filed: 02/21/17 08:15> Results - Vital Signs Recent Vital Signs: Last Vital Signs Temp 99.4 F 02/21/17 02:59 Pulse 66 02/21/17 02:59 Resp 20 02/21/17 02:59 BP 126/66 02/21/17 02:59 Pulse Ox 99 02/21/17 00:52 - Labs Result Diagrams: 02/21/17 07:21 02/21/17 07:21 Labs: Laboratory Results - last 24 hr 02/21/17 02/21/17 07:21 07:21 WBC 4.8 D RBC 3.40 L Hgb 9.9 L D Hct 30.1 L MCV 88.5 MCH 29.1 MCHC 32.9 RDW 14.3 Plt Count 229 MPV 10.1 Gran % 41.1 L Lymph % (Auto) 47.[address] [place] % (Auto) 10.2 H Eos % (Auto) 0.8 L Baso % (Auto) 0.2 Gran # 1.97 Lymph # 2.3 [place] # 0.5 Eos # 0.0 Baso # 0.01 Sodium 140 Potassium 3.6 Chloride 108 H Carbon Dioxide 25 Anion Gap 11 BUN 5 L Creatinine 0.6 Est GFR ( Amer) > 60 Est GFR (Non-Af Amer) > 60 Random Glucose 93 Calcium 8.1 L Phosphorus 3.5 Magnesium 1.6 L Total Bilirubin 0.6 AST 39 H D ALT 34 Alkaline Phosphatase 57 Total Protein 6.0 Albumin 3.2 Globulin 2.8 Albumin/Globulin Ratio 1.1 Attending/Attestation - Attestation I have personally seen and examined this patient.: Yes I have fully participated in the care of the patient.: Yes I have reviewed all pertinent clinical information: Yes Notes (Text): -I agree with the above H&P completed by the resident physician with the following additions and/or changes: The patient is a 26 year old woman who was admitted [place] [facility] [place] for obstructive jaundice due to a CBD stone and stricture. As a result, on that admission, she underwent an ERCP with stenting of the CBD with removal of the stone. She now presents with gallstone pancreatitis (with associated symptoms of acute N/V and RUQ abdominal pain). She denies any recent jaundice, fevers, chills, night sweats or bowel abnormalities. In the ED, RUQ U/S showed evidence of cholelithiasis and choledocholithiasis as well as an elevated serum lipase of almost 900. Consequently, she will be kept NPO and started on aggressive IVF's. GI has been consulted for likely ERCP. IV Morphine and Zofran will be used for symptomatic relief.
[2017-02-21] MEDS ORDERED: Pantoprazole 40 mg EC Tab PO SCH (06:00)
[2017-02-21 07:30] LABS: BASO # 0.01 K/mm3 (0.0-2.0); BASO % 0.2 % (0.0-3.0); EOS % 0.8 % (1.5-5.0); GRAN # 1.97 (1.4-6.5); GRAN % 41.1 % (50.0-68.0); HEMATOCRIT 30.1 % (36.0-48.0); LYMPH # 2.3 (1.2-3.4); LYMPH % 47.7 % (22.0-35.0); MEAN CELL VOLUME 88.5 fl (80.0-105.0); MEAN CORPUSCULAR HEMOGLOBIN 29.1 pg (25.0-35.0); MEAN CORPUSCULAR HGB CONC 32.9 g/dl (31.0-37.0); MEAN PLATELET VOLUME 10.1 fl (7.0-11.0); MONO # 0.5 (0.1-0.6); MONO % 10.2 % (1.0-6.0); RED CELL DISTRIBUTION WIDTH 14.3 % (11.5-14.5); WHITE BLOOD COUNT 4.8 10^3/ul (4.5-11.0)
[2017-02-21 07:57] LABS: ALB/GLOB RATIO 1.1 (1.1-1.8); ALKALINE PHOSPHATASE 57 U/L (38-126); ALT/SGPT 34 U/L (7-56); AST/SGOT 39 U/L (14-36); BILIRUBIN,TOTAL 0.6 mg/dL (0.2-1.3); BLOOD UREA NITROGEN 5 mg/dL (7-21); CALCIUM 8.1 mg/dL (8.4-10.5); CARBON DIOXIDE 25 mmol/L (21-33); CHLORIDE 108 mmol/L (98-107); GFR AFRICAN-AMERICAN > 60; GLUCOSE,RANDOM 93 mg/dL (70-110); MAGNESIUM 1.6 mg/dL (1.7-2.2); PHOSPHOROUS 3.5 mg/dL (2.5-4.5); POTASSIUM 3.6 mmol/L (3.6-5.0); SODIUM 140 mmol/L (132-148)
[2017-02-21] MEDS ORDERED: Sodium Chloride 0.9% 100 ML IV SCH (08:00)
[2017-02-21] MEDS ORDERED: Magnesium Sulfate 1 gm in D5W 1 GM/100 ML BAG IVPB ONE (08:24)
[2017-02-21 08:38] LABS: CHOLESTEROL 122 mg/dL (130-200)
--- NOTE | 2017-02-21 09:03 | CP.PCM.CON ---
<Geraldine Gupta - Last Filed: 02/21/17 15:06> History of Present Illness - History of Present Illness History of Present Illness: GI CONSULT NOTE FOR DR. MIN 26yo F with PMHx of choledocholithiasis s/p multiple ERCPs with CBD stent insertion, removal, and replacement presented to the ED with abdominal pain and vomiting. The abdominal pain is located mostly in her epigastric area and radiates to her back. She has vomited multiple times, non bloody. She denies diarrhea. Currently, she states that her pain is much better and she hasn't vomited since admission. She previously was admitted in November 2016 for abdominal pain and jaundice. She was found to have choledocholithiasis and cholelithiasis. On 12/20, she had ERCP and EUS with sphincterotomy, stent was inserted and a plastic stent was insertedinto pseudocyst. On 12/23, she had another ERCP with lithotripsy and the stent was exchanged in the CBD. On 02/03, a moderate biliary stricture was found. Successful lithotripsy was done and the CBD stent was exchanged. 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) - RENAL Hx Chronic Kidney Disease: No - ENDOCRINE/METABOLIC Hx Endocrine Disorders: No - HEMATOLOGICAL/ONCOLOGICAL Hx Blood Transfusions: (UNKNOWN) Hx Blood Transfusion Reaction: (UNKNOWN) - INTEGUMENTARY Hx Dermatological Problems: Yes (JAUNDICED-GB STONE) - MUSCULOSKELETAL/RHEUMATOLOGICAL Hx Falls: No - GASTROINTESTINAL Hx Gastrointestinal Disorders: Yes Hx Gall Bladder Disease: Yes (CBD STONE 19 MM 12-19-16) - GENITOURINARY/GYNECOLOGICAL Hx Genitourinary Disorders: Yes (C/S X 1) - PSYCHIATRIC Hx Psychophysiologic Disorder: Yes (SUBSTANCE USE,DRINKS OCCASIONALLY) Hx Substance Use: Yes (SOCIALLY) - SURGICAL HISTORY Hx Section: Yes (x1) Other/Comment: stents for gallstones - ANESTHESIA Hx Anesthesia: Yes Hx Anesthesia Reactions: No Hx Malignant Hyperthermia: No Meds Allergies/Adverse Reactions: Allergies Allergy/AdvReac Type Severity Reaction Status Date / Time Penicillins AdvReac RASH Verified 12/19/16 14:28 - Medications Medications: Current Medications Magnesium Sulfate/Dextrose (Magnesium Sulfate 1 Gm/100 Ml D5w) 1 gm in 100 mls @ 100 mls/hr IVPB ONCE ONE Stop: 02/21/17 09:23 Sodium Chloride (Sodium Chloride 0.9%) 1,000 mls @ 100 mls/hr IV .Q10H [facility] Morphine Sulfate (Morphine) 2 mg IVP Q6 PRN PRN Reason: Pain, moderate (4-7) Last Admin: 02/21/17 03:09 Dose: 2 mg Ondansetron HCl (Zofran Inj) 4 mg IVP Q6H PRN PRN Reason: Nausea/Vomiting Pantoprazole Sodium (Protonix Inj) 40 mg IVP DAILY [facility] Physical Exam - Constitutional Appears: Well, Non-toxic, No Acute Distress - Head Exam Head Exam: ATRAUMATIC, NORMAL INSPECTION - Eye Exam Eye Exam: EOMI, Normal appearance - Respiratory Exam Respiratory Exam: NORMAL BREATHING PATTERN. absent: Respiratory Distress - Cardiovascular Exam Cardiovascular Exam: +S1, +S2 - GI/Abdominal Exam GI & Abdominal Exam: Soft, Tenderness (mild tenderness in epigastric area). absent: Distended, Firm, Guarding, Rebound, Rigid - Neurological Exam Neurological exam: Alert, CN II-XII Intact, Oriented x3 - Psychiatric Exam Psychiatric exam: Normal Affect, Normal Mood - Skin Skin Exam: Dry, Intact, Normal Color, Warm Results - Vital Signs Recent Vital Signs: Last Vital Signs Temp 98.5 F 02/21/17 08:16 Pulse 58 L 02/21/17 08:16 Resp 18 02/21/17 08:16 BP 128/74 02/21/17 08:16 Pulse Ox 98 02/21/17 08:16 - Labs Result Diagrams: 02/21/17 07:21 02/21/17 07:21 Labs: Laboratory Results - last 24 hr 02/21/17 02/21/17 02/21/17 07:00 07:21 07:21 WBC 4.8 D RBC 3.40 L Hgb 9.9 L D Hct 30.1 L MCV 88.5 MCH 29.1 MCHC 32.9 RDW 14.3 Plt Count 229 MPV 10.1 Gran % 41.1 L Lymph % (Auto) 47.7 H [place] % (Auto) 10.2 H Eos % (Auto) 0.8 L Baso % (Auto) 0.2 Gran # 1.97 Lymph # 2.3 [place] # 0.5 Eos # 0.0 Baso # 0.01 Sodium 140 Potassium 3.6 Chloride 108 H Carbon Dioxide 25 Anion Gap 11 BUN 5 L Creatinine 0.6 Est GFR ( Amer) > 60 Est GFR (Non-Af Amer) > 60 Random Glucose 93 Calcium 8.1 L Phosphorus 3.5 Magnesium 1.6 L Total Bilirubin 0.6 AST 39 H D ALT 34 Alkaline Phosphatase 57 Lactate Dehydrogenase 348 Total Protein 6.0 Albumin 3.2 Globulin 2.8 Albumin/Globulin Ratio 1.1 Triglycerides 56 Cholesterol 122 L LDL Cholesterol Direct 77 HDL Cholesterol 31 Assessment & Plan - Assessment and Plan (Free Text) Assessment: 26yo F with PMHx of choledocholithiasis s/p multiple ERCPs with CBD stent insertion, removal, and replacement presented with abdominal pain and vomiting. - Afebrile, VSS - Lipase elevated 856 yesterday on admission - US: stones, stent and few stones in CBD - NPO - IV fluids - ERCP today with possible stent removal - Discussed plan with Dr. Breanna Gupta PGY-3 <Alexus Min V - Last Filed: 02/21/17 23:54> Meds - Medications Medications: Current Medications Sodium Chloride (Sodium Chloride 0.9%) 1,000 mls @ 100 mls/hr IV .Q10H [facility] Last Admin: 02/21/17 20:52 Dose: 100 mls/hr Metoclopramide HCl (Reglan) 10 mg IV ONCE PRN PRN Reason: Nausea/Vomiting Stop: 02/21/17 23:59 Morphine Sulfate (Morphine) 2 mg IVP Q6 PRN PRN Reason: Pain, moderate (4-7) Last Admin: 02/21/17 10:30 Dose: 2 mg Ondansetron HCl (Zofran Inj) 4 mg IVP Q6H PRN PRN Reason: Nausea/Vomiting Pantoprazole Sodium (Protonix Inj) 40 mg IVP DAILY [facility] Last Admin: 02/21/17 10:30 Dose: 40 mg Results - Vital Signs Recent Vital Signs: Last Vital Signs Temp 97.9 F 02/21/17 18:55 Pulse 66 02/21/17 18:55 Resp 16 02/21/17 18:55 BP 153/94 H 02/21/17 18:55 Pulse Ox 98 02/21/17 18:55 - Labs Result Diagrams: 02/21/17 07:21 02/21/17 07:21 Labs: Laboratory Results - last 24 hr 02/21/17 02/21/17 02/21/17 07:00 07:00 07:21 WBC RBC Hgb Hct MCV MCH MCHC RDW Plt Count MPV Gran % Lymph % (Auto) [place] % (Auto) Eos % (Auto) Baso % (Auto) Gran # Lymph # [place] # Eos # Baso # Sodium 140 Potassium 3.6 Chloride 108 H Carbon Dioxide 25 Anion Gap 11 BUN 5 L Creatinine 0.6 Est GFR ( Amer) > 60 Est GFR (Non-Af Amer) > 60 POC Glucose (mg/dL) Random Glucose 93 Calcium 8.1 L Phosphorus 3.5 Magnesium 1.6 L Total Bilirubin 0.6 AST 39 H D ALT 34 Alkaline Phosphatase 57 Lactate Dehydrogenase 348 C-React Prot High Sens 0.50 L Total Protein 6.0 Albumin 3.2 Globulin 2.8 Albumin/Globulin Ratio 1.1 Triglycerides 56 Cholesterol 122 L LDL Cholesterol Direct 77 HDL Cholesterol 31 02/21/17 02/21/17 07:21 07:37 WBC 4.8 D RBC 3.40 L Hgb 9.9 L D Hct 30.1 L MCV 88.5 MCH 29.1 MCHC 32.9 RDW 14.3 Plt Count 229 MPV 10.1 Gran % 41.1 L Lymph % (Auto) 47.7 H [place] % (Auto) 10.2 H Eos % (Auto) 0.8 L Baso % (Auto) 0.2 Gran # 1.97 Lymph # 2.3 [place] # 0.5 Eos # 0.0 Baso # 0.01 Sodium Potassium Chloride Carbon Dioxide Anion Gap BUN Creatinine Est GFR ( Amer) Est GFR (Non-Af Amer) POC Glucose (mg/dL) 98 Random Glucose Calcium Phosphorus Magnesium Total Bilirubin AST ALT Alkaline Phosphatase Lactate Dehydrogenase C-React Prot High Sens Total Protein Albumin Globulin Albumin/Globulin Ratio Triglycerides Cholesterol LDL Cholesterol Direct HDL Cholesterol Attending/Attestation - Attestation I have personally seen and examined this patient.: Yes I have fully participated in the care of the patient.: Yes I have reviewed all pertinent clinical information: Yes Notes (Text): This is an addendum to GI progress report dictated by Resident.The patient was seen and examined earlier. Medical records, lab studies, imagings were reviewed. Last 24 hours events reviewed. Agreed with the above treatment plan as outlined in Resident's notes the with the addition of the following 02/21/17 20:54
[2017-02-21] MEDS ORDERED: Iohexol 240 (50 ml) ONE (14:16)
[2017-02-21] MEDS ORDERED: Glucagon Recombinant 1 mg Inj ONE (14:16)
[2017-02-21] MEDS ORDERED: Indomethacin 50 MG Suppository PR ONE (14:17)
[2017-02-21] MEDS ORDERED: Propofol 10 mg/ml Inj (20 ML) ONE ×2 (15:06→16:30)
[2017-02-21] MEDS ORDERED: Midazolam 2 MG/2 ML VIAL ONE (15:06)
[2017-02-21] MEDS ORDERED: Succinylcholine 200 mg/10 ml Inj IV ONE (15:06)
[2017-02-21] MEDS ORDERED: Sevoflurane - Inhalation Anesthetic Liq (250 ml) ONE (15:07)
[2017-02-21] MEDS ORDERED: cefTRIAXone (Rocephin) 1 gm Inj ONE (15:38)
[2017-02-21] MEDS ORDERED: levoFLOXacin 500 mg in D5W 500 MG/100 ML BAG IVPB ONE (15:40)
[2017-02-21] MEDS ORDERED: Desflurane Inhalation Anesthetic Liq (240 ml) ONE (17:10)
[2017-02-21] MEDS ORDERED: HYDROmorphone 0.5 mg/0.5 ml ISec IVP PRN (18:16)
[2017-02-21] MEDS ORDERED: Lactated Ringer's 1,000 ML IV SCH (18:30)
[2017-02-22] MEDS: Sodium Chloride 0.9% 1,000 ML IV SCH (05:02)
[2017-02-22 07:39] LABS: BASO # 0.01 K/mm3 (0.0-2.0); BASO % 0.2 % (0.0-3.0); EOS % 0.3 % (1.5-5.0); GRAN # 3.6 (1.4-6.5); GRAN % 57.9 % (50.0-68.0); HEMATOCRIT 29.4 % (36.0-48.0); LYMPH # 1.9 (1.2-3.4); MEAN CELL VOLUME 85.7 fl (80.0-105.0); MEAN CORPUSCULAR HEMOGLOBIN 28.9 pg (25.0-35.0); MEAN CORPUSCULAR HGB CONC 33.7 g/dl (31.0-37.0); MEAN PLATELET VOLUME 10.2 fl (7.0-11.0); MONO # 0.7 (0.1-0.6); MONO % 10.6 % (1.0-6.0); RED CELL DISTRIBUTION WIDTH 13.5 % (11.5-14.5); WHITE BLOOD COUNT 6.2 10^3/ul (4.5-11.0)
[2017-02-22 08:49] VITALS: BP 114/69; PULSE 50; RESP 20; TEMP 98.6; O2SAT 99
--- NOTE | 2017-02-22 10:31 | CP.PCM.PN ---
Subjective - Date & Time of Evaluation Date of Evaluation: 02/22/17 Time of Evaluation: 08:00 - Subjective Subjective: GI PROGRESS NOTE FOR DR. MIN Patient seen and examined at bedside. She had an ERCP yesterday with stent removal, lithotripsy, and another stent placed. She states that she had nausea and vomited twice after the procedure. She was given Zofran which relieved her symptoms. She denies abdominal pain. She is tolerating full liquid diet. Objective - Vital Signs/Intake and Output Vital Signs (last 24 hours): Temp Pulse Resp BP Pulse Ox 98.6 F 50 L 20 114/69 99 02/22/17 08:00 02/22/17 08:00 02/22/17 08:00 02/22/17 08:00 02/22/17 08:00 Intake and Output: 02/22/17 02/22/17 06:59 18:59 Intake Total 0 Balance 0 - Medications Medications: Current Medications Sodium Chloride (Sodium Chloride 0.9%) 1,000 mls @ 100 mls/hr IV .Q10H [facility] Last Admin: 02/22/17 05:02 Dose: Not Given Morphine Sulfate (Morphine) 2 mg IVP Q6 PRN PRN Reason: Pain, moderate (4-7) Last Admin: 02/21/17 10:30 Dose: 2 mg Ondansetron HCl (Zofran Inj) 4 mg IVP Q6H PRN PRN Reason: Nausea/Vomiting Pantoprazole Sodium (Protonix Inj) 40 mg IVP DAILY [facility] Last Admin: 02/22/17 10:11 Dose: 40 mg - Labs Labs: 02/22/17 07:33 02/21/17 07:21 - Constitutional Appears: Non-toxic, No Acute Distress - Head Exam Head Exam: ATRAUMATIC, NORMAL INSPECTION - Eye Exam Eye Exam: EOMI - Respiratory Exam Respiratory Exam: NORMAL BREATHING PATTERN. absent: Respiratory Distress - Cardiovascular Exam Cardiovascular Exam: +S1, +S2 - GI/Abdominal Exam GI & Abdominal Exam: Soft. absent: Distended, Firm, Guarding, Rigid, Tenderness , Rebound - Neurological Exam Neurological Exam: Alert, Awake, Oriented x3 - Psychiatric Exam Psychiatric exam: Normal Affect, Normal Mood - Skin Skin Exam: Dry, Normal Color, Warm Assessment and Plan - Assessment and Plan (Free Text) Assessment: 26yo F with PMHx of choledocholithiasis s/p multiple ERCPs with CBD stent insertion, removal, and replacement presented with abdominal pain and vomiting. S/p ERCP yesterday with stent removal from CBD, choledocholithiasis seen, successful lithotripsy, dilation of distal CBD stricture, and a 10F stent was placed due to the post cholangiogram drainage being slow - Afebrile, VSS - AST increased, T bili and ALT WNL - Tolerating full liquids - IV fluids - Will remove stent in 2 weeks and after cholecystectomy - Discussed plan with Dr. Breanna Gupta PGY-3
[2017-02-22 12:32] LABS: ALB/GLOB RATIO 1.1 (1.1-1.8); ALKALINE PHOSPHATASE 62 U/L (38-126); ALT/SGPT 30 U/L (7-56); AST/SGOT 38 U/L (14-36); BILIRUBIN,TOTAL 0.6 mg/dL (0.2-1.3); BLOOD UREA NITROGEN 5 mg/dL (7-21); CALCIUM 8.4 mg/dL (8.4-10.5); CARBON DIOXIDE 22 mmol/L (21-33); CHLORIDE 107 mmol/L (98-107); GFR AFRICAN-AMERICAN > 60; GLUCOSE,RANDOM 75 mg/dL (70-110); MAGNESIUM 1.7 mg/dL (1.7-2.2); PHOSPHOROUS 3.3 mg/dL (2.5-4.5); POTASSIUM 3.5 mmol/L (3.6-5.0); SODIUM 137 mmol/L (132-148)
--- NOTE | 2017-02-22 17:01 | RAD ---
PROCEDURE: ERCP HISTORY: ? CBD OBST. / SPYGLASS COMPARISON: TECHNIQUE: Intraoperative fluoroscopy defined referring physician to assist in ERCP performance. FINDINGS: Please see operative report. History 3 seconds of fluoroscopy was utilized with a total dose of 133.11 mGy. IMPRESSION: As above.
--- NOTE | 2017-02-22 21:18 | CP.PCM.DIS ---
<Juan Carlos Martinez - Last Filed: 02/22/17 21:20> Provider - Provider Date of Admission: 02/21/17 03:34 Attending physician: Ibrahima Hoyos MD Primary care physician: Luis Felipe Castillo MD Time Spent in preparation of Discharge (in minutes): 45 Diagnosis - Discharge Diagnosis (1) Abdominal pain Status: Resolved Priority: Low (2) Choledocholithiasis Status: Acute Priority: Medium (3) Gallstone pancreatitis Status: Resolved Priority: Low Hospital Course - Lab Results Lab Results: Most Recent Lab Values WBC 6.2 10^3/ul (4.5-11.0) D 02/22/17 07:33 RBC 3.43 10^6/uL (3.5-6.1) L 02/22/17 07:33 Hgb 9.9 g/dL (12.0-16.0) L 02/22/17 07:33 Hct 29.4 % (36.0-48.0) L 02/22/17 07:33 MCV 85.7 fl (80.0-105.0) 02/22/17 07:33 MCH 28.9 pg (25.0-35.0) 02/22/17 07:33 MCHC 33.7 g/dl (31.0-37.0) 02/22/17 07:33 RDW 13.5 % (11.5-14.5) 02/22/17 07:33 Plt Count 212 10^3/uL (120.0-450.0) 02/22/17 07:33 MPV 10.2 fl (7.0-11.0) 02/22/17 07:33 Gran % 57.9 % (50.0-68.0) 02/22/17 07:33 Lymph % (Auto) 31.0 % (22.0-35.0) 02/22/17 07:33 [place] % (Auto) 10.6 % (1.0-6.0) H 02/22/17 07:33 Eos % (Auto) 0.3 % (1.5-5.0) L 02/22/17 07:33 Baso % (Auto) 0.2 % (0.0-3.0) 02/22/17 07:33 Gran # 3.60 (1.4-6.5) 02/22/17 07:33 Lymph # 1.9 (1.2-3.4) 02/22/17 07:33 [place] # 0.7 (0.1-0.6) H 02/22/17 07:33 Eos # 0.0 (0.0-0.7) 02/22/17 07:33 Baso # 0.01 K/mm3 (0.0-2.0) 02/22/17 07:33 Sodium 137 mmol/L (132-148) 02/22/17 07:33 Potassium 3.5 mmol/L (3.6-5.0) L 02/22/17 07:33 Chloride 107 mmol/L (98-107) 02/22/17 07:33 Carbon Dioxide 22 mmol/L (21-33) 02/22/17 07:33 Anion Gap 12 (10-20) 02/22/17 07:33 BUN 5 mg/dL (7-21) L 02/22/17 07:33 Creatinine 0.5 mg/dL (0.5-1.4) 02/22/17 07:33 Est GFR ( Amer) > 60 02/22/17 07:33 Est GFR (Non-Af Amer) > 60 02/22/17 07:33 POC Glucose (mg/dL) 98 mg/dL (65-110) 02/21/17 07:37 Random Glucose 75 mg/dL (70-110) 02/22/17 07:33 Calcium 8.4 mg/dL (8.4-10.5) 02/22/17 07:33 Phosphorus 3.3 mg/dL (2.5-4.5) 02/22/17 07:33 Magnesium 1.7 mg/dL (1.7-2.2) 02/22/17 07:33 Total Bilirubin 0.6 mg/dL (0.2-1.3) 02/22/17 07:33 AST 38 U/L (14-36) H 02/22/17 07:33 ALT 30 U/L (7-56) 02/22/17 07:33 Alkaline Phosphatase 62 U/L (38-126) 02/22/17 07:33 Lactate Dehydrogenase 348 U/L (333-699) 02/21/17 07:00 C-React Prot High Sens 0.50 mg/L (1.00-3.00) L 02/21/17 07:00 Total Protein 6.0 g/dL (5.8-8.3) 02/22/17 07:33 Albumin 3.2 g/dL (3.0-4.8) 02/22/17 07:33 Globulin 2.8 gm/dL 02/22/17 07:33 Albumin/Globulin Ratio 1.1 (1.1-1.8) 02/22/17 07:33 Triglycerides 56 mg/dL (35-160) 02/21/17 07:00 Cholesterol 122 mg/dL (130-200) L 02/21/17 07:00 LDL Cholesterol Direct 77 mg/dL (0-129) 02/21/17 07:00 HDL Cholesterol 31 mg/dL (29-60) 02/21/17 07:00 Lipase 856 U/L (23-300) H 02/20/17 22:35 Urine Color Yellow (YELLOW) 02/20/17 21:55 Urine Appearance Clear (CLEAR) 02/20/17 21:55 Urine pH 6.5 (4.7-8.0) 02/20/17 21:55 Ur Specific [place] 1.025 (1.005-1.035) 02/20/17 21:55 Urine Protein 30 mg/dL (<30 mg/dL) H 02/20/17 21:55 Urine Glucose (UA) Negative mg/dL (NEGATIVE) 02/20/17 21:55 Urine Ketones Trace mg/dL (NEGATIVE) H 02/20/17 21:55 Urine Blood Negative (NEGATIVE) 02/20/17 21:55 Urine Nitrate Negative (NEGATIVE) 02/20/17 21:55 Urine Bilirubin Negative (NEGATIVE) 02/20/17 21:55 Urine Urobilinogen 1.0 E.U./dL (<1 E.U./dL) H 02/20/17 21:55 Ur Leukocyte Esterase Negative [place]/uL (NEGATIVE) 02/20/17 21:55 Urine RBC 0 - 2 /hpf (0-2) 02/20/17 21:55 Urine WBC 0 - 2 /hpf (0-6) 02/20/17 21:55 Ur Epithelial Cells Many /hpf (0-5) 02/20/17 21:55 Urine Bacteria Small (NEG) 02/20/17 21:55 Urine HCG, Qual Negative (NEGATIVE) 02/20/17 21:55 - Hospital Course Hospital Course: 26 y/o F previously admitted to [facility] in early 01/2017 for obstructive jaundice secondary to choledoclithiasis. At this time patient underwent ERCP along with stent placement. Pt presents with gallstone pancreatitis. Abdominal US showed cholelithiasis and choledoclithiasis, along with elevated lipase. Pt consequently underwent repeat ERCP with stent removal and new stent placement. Pt will follow up with Dr. Cordova, her Surgeon, and have her gallbladder removed. Pt will also follow up with Dr. Carlos for stent removal. Pt advised to have low fat/low cholesterol meals. Discharge Exam - Head Exam Head Exam: ATRAUMATIC, NORMAL INSPECTION - Eye Exam Eye Exam: EOMI, Normal appearance. absent: Scleral icterus - ENT Exam ENT Exam: Mucous Membranes Moist - Respiratory Exam Respiratory Exam: NORMAL BREATHING PATTERN, UNREMARKABLE - Cardiovascular Exam Cardiovascular Exam: RRR, +S1, +S2 - GI/Abdominal Exam GI & Abdominal Exam: Normal Bowel Sounds, Soft, Unremarkable. absent: Tenderness - Extremities Exam Extremities exam: normal inspection - Neurological Exam Neurological exam: Alert, CN II-XII Intact, Oriented x3 - Psychiatric Exam Psychiatric exam: Normal Affect, Normal Mood - Skin Skin Exam: Intact, Normal Color, Warm Discharge Plan - Follow Up Plan Condition: STABLE Disposition: HOME/ ROUTINE Instructions: Cholecystitis (DC), Pancreatitis (DC), Gallstones (DC), Low Fat Diet (DC), ERCP (Endoscopic Retrograde Cholangiopancreatography) (DC), Acute Nausea and Vomiting (DC), Acute Abdominal Pain (DC), Acute Abdominal Pain (GEN) Additional Instructions: Follow up with Dr. Cordova within 1 week Follow up with Dr. Carlos within 4 weeks Eat meals with low fat Return to hospital for worsening symptoms Referrals: Luis Felipe Castillo MD [Primary Care Provider] - <Ibrahima Hoyos - Last Filed: 02/23/17 09:20> Provider - Provider Date of Admission: 02/21/17 03:34 Attending physician: Ibrahima Hoyos MD Primary care physician: Luis Felipe Castillo MD Hospital Course - Lab Results Lab Results: Most Recent Lab Values WBC 6.2 10^3/ul (4.5-11.0) D 02/22/17 07:33 RBC 3.43 10^6/uL (3.5-6.1) L 02/22/17 07:33 Hgb 9.9 g/dL (12.0-16.0) L 02/22/17 07:33 Hct 29.4 % (36.0-48.0) L 02/22/17 07:33 MCV 85.7 fl (80.0-105.0) 02/22/17 07:33 MCH 28.9 pg (25.0-35.0) 02/22/17 07: MCHC 33.7 g/dl (31.0-37.0) 02/22/17 07:33 RDW 13.5 % (11.5-14.5) 02/22/17 07:33 Plt Count 212 10^3/uL (120.0-450.0) 02/22/17 07:33 MPV 10.2 fl (7.0-11.0) 02/22/17 07:33 Gran % 57.9 % (50.0-68.0) 02/22/17 07:33 Lymph % (Auto) 31.0 % (22.0-35.0) 02/22/17 07:33 [place] % (Auto) 10.6 % (1.0-6.0) H 02/22/17 07:33 Eos % (Auto) 0.3 % (1.5-5.0) L 02/22/17 07:33 Baso % (Auto) 0.2 % (0.0-3.0) 02/22/17 07:33 Gran # 3.60 (1.4-6.5) 02/22/17 07:33 Lymph # 1.9 (1.2-3.4) 02/22/17 07:33 [place] # 0.7 (0.1-0.6) H 02/22/17 07:33 Eos # 0.0 (0.0-0.7) 02/22/17 07:33 Baso # 0.01 K/mm3 (0.0-2.0) 02/22/17 07:33 Sodium 137 mmol/L (132-148) 02/22/17 07:33 Potassium 3.5 mmol/L (3.6-5.0) L 02/22/17 07:33 Chloride 107 mmol/L (98-107) 02/22/17 07:33 Carbon Dioxide 22 mmol/L (21-33) 02/22/17 07:33 Anion Gap 12 (10-20) 02/22/17 07:33 BUN 5 mg/dL (7-21) L 02/22/17 07:33 Creatinine 0.5 mg/dL (0.5-1.4) 02/22/17 07:33 Est GFR ( Amer) > 60 02/22/17 07:33 Est GFR (Non-Af Amer) > 60 02/22/17 07:33 POC Glucose (mg/dL) 98 mg/dL (65-110) 02/21/17 07:37 Random Glucose 75 mg/dL (70-110) 02/22/17 07:33 Calcium 8.4 mg/dL (8.4-10.5) 02/22/17 07:33 Phosphorus 3.3 mg/dL (2.5-4.5) 02/22/17 07:33 Magnesium 1.7 mg/dL (1.7-2.2) 02/22/17 07:33 Total Bilirubin 0.6 mg/dL (0.2-1.3) 02/22/17 07:33 AST 38 U/L (14-36) H 02/22/17 07:33 ALT 30 U/L (7-56) 02/22/17 07:33 Alkaline Phosphatase 62 U/L (38-126) 02/22/17 07:33 Lactate Dehydrogenase 348 U/L (333-699) 02/21/17 07:00 C-React Prot High Sens 0.50 mg/L (1.00-3.00) L 02/21/17 07:00 Total Protein 6.0 g/dL (5.8-8.3) 02/22/17 07:33 Albumin 3.2 g/dL (3.0-4.8) 02/22/17 07:33 Globulin 2.8 gm/dL 02/22/17 07:33 Albumin/Globulin Ratio 1.1 (1.1-1.8) 02/22/17 07:33 Triglycerides 56 mg/dL (35-160) 02/21/17 07:00 Cholesterol 122 mg/dL (130-200) L 02/21/17 07:00 LDL Cholesterol Direct 77 mg/dL (0-129) 02/21/17 07:00 HDL Cholesterol 31 mg/dL (29-60) 02/21/17 07:00 Lipase 856 U/L (23-300) H 02/20/17 22:35 Urine Color Yellow (YELLOW) 02/20/17 21:55 Urine Appearance Clear (CLEAR) 02/20/17 21:55 Urine pH 6.5 (4.7-8.0) 02/20/17 21:55 Ur Specific [place] 1.025 (1.005-1.035) 02/20/17 21:55 Urine Protein 30 mg/dL (<30 mg/dL) H 02/20/17 21:55 Urine Glucose (UA) Negative mg/dL (NEGATIVE) 02/20/17 21:55 Urine Ketones Trace mg/dL (NEGATIVE) H 02/20/17 21:55 Urine Blood Negative (NEGATIVE) 02/20/17 21:55 Urine Nitrate Negative (NEGATIVE) 02/20/17 21:55 Urine Bilirubin Negative (NEGATIVE) 02/20/17 21:55 Urine Urobilinogen 1.0 E.U./dL (<1 E.U./dL) H 02/20/17 21:55 Ur Leukocyte Esterase Negative [place]/uL (NEGATIVE) 02/20/17 21:55 Urine RBC 0 - 2 /hpf (0-2) 02/20/17 21:55 Urine WBC 0 - 2 /hpf (0-6) 02/20/17 21:55 Ur Epithelial Cells Many /hpf (0-5) 02/20/17 21:55 Urine Bacteria Small (NEG) 02/20/17 21:55 Urine HCG, Qual Negative (NEGATIVE) 02/20/17 21:55 Attending/Attestation - Attestation I have personally seen and examined this patient.: Yes I have fully participated in the care of the patient.: Yes I have reviewed all pertinent clinical information, including history, physical exam and plan: Yes Notes (Text): 02/22/17 26 year old female who was admitted for abdominal pain. She has history of recent ERCP with stent placement. She had abodminal US which showed cholelithiasis and choledocolithiasis. She was seen by GI and underwent repeat ERCP with stent removal/placement. Her symptoms improved and her diet was advanced which she tolerated. Case was discussed with Dr. Carlos and Dr. Cordova. Patient is discharged home to follow up with pmd. Follow up with GI and surgery. Ibrahima Hoyos MD Hospitalist.
== END 2017-02-22 16:59 | disposition home or self-care (01) | DRG 207 ==
LOC: ED 21:04 → ERH 02-21 01:43 → 5RSO 02-21 03:02 → OBSVTOIN 02-21 03:34
PROVIDERS: ADMIT Internal Medicine; ATTEND Internal Medicine
PROC: 0FC98ZZ Extirpation of Matter from Common Bile Duct, Via Natural or Artificial Opening Endoscopic (ICD-10-PCS; principal; 2017-02-21 13:30)
PROC: 0FPB8DZ Removal of Intraluminal Device from Hepatobiliary Duct, Via Natural or Artificial Opening Endoscopic (ICD-10-PCS; 2017-02-21 13:30)
PROC: 0F798DZ Dilation of Common Bile Duct with Intraluminal Device, Via Natural or Artificial Opening Endoscopic (ICD-10-PCS; 2017-02-21 13:30)
DX: K80.70 Calculus of gallbladder and bile duct without cholecystitis without obstruction (principal); K85.10 Biliary acute pancreatitis without necrosis or infection; F19.90 Other psychoactive substance use, unspecified, uncomplicated; Z88.0 Allergy status to penicillin; R40.2412 Glasgow coma scale score 13-15, at arrival to emergency department

== ENCOUNTER 2017-03-20 20:43 | Observation (INO) | payer OTHER ==
--- NOTE | 2017-03-20 21:52 | ED PDOC ---
Arrival/HPI - General Time Seen by Provider: 03/20/17 20:54 Historian: Patient - History of Present Illness Narrative History of Present Illness (Text): 03/20/17 21:52 Pati Bill is a 26 year old female, whose past medical history includes recent cholecystectomy and choledocholithiasis s/p biliary stent, who presents to the Emergency department complaining of abdominal pain. Patient states she recently underwent an open cholecystectomy 2 weeks prior. Patient states she began experiencing RUQ pain 2 days ago and was advised by her surgeon to come to the ER for further evaluation. Patient denies any fever, chills, chest pain, shortness of breath, nausea, vomiting, diarrhea, urinary symptoms, headache, or any other complaints. Surgeon: Dr. 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) - Renal Hx Renal Disorder: No - Endocrine/Metabolic Hx Endocrine Disorders: No - Hematological/Oncological Hx Blood Transfusions: (UNKNOWN) Hx Blood Transfusion Reaction: (UNKNOWN) - Integumentary Hx Dermatological Disorder: Yes (JAUNDICED-GB STONE) - Musculoskeletal/Rheumatological Hx Falls: No - Gastrointestinal Hx Gastrointestinal Disorders: Yes Hx Gall Bladder Disease: Yes (CBD STONE 19 MM 12-19-16) - Genitourinary/Gynecological Hx Genitourinary Disorders: Yes (C/S X 1) - Psychiatric Hx Psychophysiologic Disorder: Yes (SUBSTANCE USE,DRINKS OCCASIONALLY) Hx Substance Use: Yes (SOCIALLY) - Surgical History Hx Section: Yes (x1) Other/Comment: stents for gallstones - Anesthesia Hx Anesthesia: Yes Hx Anesthesia Reactions: No Hx Malignant Hyperthermia: No - Suicidal Assessment Feels Threatened In Home Enviroment: No Family/Social History - Physician Review Nursing Documentation Reviewed: Yes Family/Social History: Unknown Family HX Smoking Status: Never Smoked Hx Alcohol Use: Yes (ETOH USE OCCASIONALLY) Hx Substance Use: Yes (SOCIALLY) Substance used: marijuana Allergies/Home Meds Allergies/Adverse Reactions: Allergies Penicillins Adverse Reaction (Verified 12/19/16 14:28) RASH Home Medications: Home Meds Medication Instructions Recorded Confirmed No Known Home Med 12/19/16 02/20/17 Review of Systems - Physician Review All systems were reviewed & negative as marked: Yes - Review of Systems Constitutional: Normal. absent: Fevers Eyes: Normal ENT: Normal Respiratory: Normal. absent: SOB, Cough Cardiovascular: Normal. absent: Chest Pain Gastrointestinal: Abdominal Pain. absent: Diarrhea, Vomiting Genitourinary Female: Normal. absent: Dysuria, Frequency, Hematuria, Urine Output Changes Musculoskeletal: Normal. absent: Back Pain, Neck Pain Skin: Normal. absent: Rash Neurological: Normal. absent: Headache, Dizziness Endocrine: Normal Hemo/Lymphatic: Normal Psychiatric: Normal Physical Exam Vital Signs Reviewed: Yes Vital Signs Temp Pulse Resp BP Pulse Ox 03/21/17 05:51 98.6 F 55 L 18 111/65 03/21/17 00:40 98.2 F 55 L 18 106/59 L 100 03/20/17 22:19 98.3 F 60 16 122/62 99 Temperature: Afebrile Blood Pressure: Normal Pulse: Regular Respiratory Rate: Normal Appearance: Positive for: Well-Appearing, Non-Toxic, Comfortable Pain Distress: None Mental Status: Positive for: Alert and Oriented X 3 - Systems Exam Head: Present: Atraumatic, Normocephalic Pupils: Present: PERRL Extroacular Muscles: Present: EOMI Conjunctiva: Present: Normal Mouth: Present: Moist Mucous Membranes Neck: Present: Normal Range of Motion Respiratory/Chest: Present: Clear to Auscultation, Good Air Exchange. No: Respiratory Distress, Accessory Muscle Use Cardiovascular: Present: Regular Rate and Rhythm, Normal S1, S2. No: Murmurs Abdomen: Present: Tenderness (Some palpable tenderness to RUQ), Normal Bowel Sounds, Other (Surgical arnaldo to RUQ, no wound discharge, no erythema to the area). No: Distention, Peritoneal Signs, Rebound, Guarding Back: Present: Normal Inspection Upper Extremity: Present: Normal Inspection. No: Cyanosis, Edema Lower Extremity: Present: Normal Inspection. No: Edema Neurological: Present: GCS=15, CN II-XII Intact, Speech Normal Skin: Present: Warm, Dry, Normal Color. No: Rashes Psychiatric: Present: Alert, Oriented x 3, Normal Insight, Normal Concentration Medical Decision Making ED Course and Treatment: 03/20/17 21:52 Impression: 26 year old female complaining of RUQ pain for 2 days. Plan: -- CT Abdomen and Pelvis with IV contrast -- Labs, lipase -- Urinalysis -- Reassess and disposition Prior Visits: Notes and results from previous visits were reviewed. On 02/20/2017, pt was seen in the Emergency department for upper abdominal, nausea, and vomiting. Pt was admitted to the hospital for further evaluation. Progress Notes: 03/21/17 00:30 Reviewed radiology, CT Abdomen and Pelvis shows: Lower thorax: No acute findings. ABDOMEN: Liver: Mild heterogeneity inferior RIGHT lobe. Gallbladder and bile ducts: Cholecystectomy. Biliary stent. Air within biliary tree, increased from previous examination. Slightly hyperdense fluid/stranding within gallbladder fossa/joey hepatis without discrete peripherally enhancing collection. Few apparent small foci of air within gallbladder fossa. Pancreas: No ductal dilation. No mass. Spleen: No splenomegaly. Adrenals: No mass. Kidneys and ureters: No mass. No hydronephrosis. Stomach and bowel: No definite mural thickening. No obstruction. Appendix: Normal caliber. No definite inflammation. PELVIS: Bladder: Unremarkable. Reproductive: Unremarkable as visualized. ABDOMEN and PELVIS: Intraperitoneal space: Trace free fluid within abdomen. Small free fluid within pelvis. Bones/joints: No acute fracture. Soft tissues: Mild stranding within subcutaneous tissues. 8.6 x 2.3 x 1.6 cm fluid collection within anterior abdominal wall subjacent to skin arnaldo. Mild soft tissue swelling/ stranding RIGHT abdominal wall musculature. Mild soft tissue thickening along umbilicus. Vasculature: Unremarkable. No aneurysm. Lymph nodes: No pathologically enlarged lymph nodes. IMPRESSION: 1. Fluid/stranding within gallbladder fossa. DDX: Postsurgical changes, biliary leak, phlegmon. 2. Air within gallbladder fossa. DDX: Postsurgical changes, biliary leak, phlegmon, bowel perforation. 3. Heterogeneity of RIGHT lobe of liver, possibly nonspecific hepatitis. Clinical correlation is needed. 4. Fluid collection within anterior abdominal wall. DDX: Seroma, hematoma, phlegmon/early abscess. 5. Incidental/non-acute findings are described above. 03/21/17 00:54 Case was d/w medical research assistant/house MD Taylor.Accepted to hospitalist service.Discussed with pts. surgeon in full.Requested service admission/ he will consult.Also requested on consult.Antibiotics ordered. - Lab Interpretations Lab Results: 03/20/17 22:20 03/20/17 22:20 Lab Results 03/20/17 22:20: WBC 5.8, RBC 3.67, Hgb 10.4 L, Hct 31.5 L, MCV 85.8, MCH 28.3, MCHC 33.0, RDW 14.3, Plt Count 578 H, MPV 9.2 03/20/17 22:20: Sodium 142, Potassium 3.7, Chloride 105, Carbon Dioxide 27, Anion Gap 14, BUN 9, Creatinine 0.6 L, Est GFR ( Amer) > 60, Est GFR (Non -Af Amer) > 60, Random Glucose 93, Calcium 9.0, Total Bilirubin 0.2, AST 41 H, ALT 28, Alkaline Phosphatase 75, Total Protein 8.0, Albumin 4.0, Globulin 4.0, Albumin/Globulin Ratio 1.0 L, Lipase 945 H 03/20/17 22:20: Urine Color Yellow, Urine Appearance Clear, Urine pH 6.0, Ur Specific [place] >= 1.030, Urine Protein 30 H, Urine Glucose (UA) Negative, Urine Ketones Negative, Urine Blood Negative, Urine Nitrate Negative, Urine Bilirubin Negative, Urine Urobilinogen 1.0 H, Ur Leukocyte Esterase Negative, Urine RBC 0 - 2, Urine WBC 0 - 2, Ur Epithelial Cells Many, Amorphous Sediment Few, Urine Bacteria Mod, Urine HCG, Qual Negative - RAD Interpretation Radiology Orders: 03/20/17 21:57 ABD & PELVIS IV CONTRAST ONLY [CT] Stat - Medication Orders Current Medication Orders: Sodium Chloride (Sodium Chloride 0.9%) 1,000 mls @ 100 mls/hr IV .Q10H GIULIANA Morphine Sulfate (Morphine) 2 mg IV Q4H PRN PRN Reason: Pain, moderate (4-7) Discontinued Medications Diphenhydramine HCl (Benadryl) 25 mg IVP ONCE ONE Stop: 03/21/17 06:01 - Scribe Statement The provider has reviewed the documentation as recorded by the Cruzito De Los Santos Provider Scribe Attestation: All medical record entries made by the Scribe were at my direction and personally dictated by me. I have reviewed the chart and agree that the record accurately reflects my personal performance of the history, physical exam, medical decision making, and the department course for this patient. I have also personally directed, reviewed, and agree with the discharge instructions and disposition. Disposition/Present on Arrival - Present on Arrival Any Indicators Present on Arrival: No History of DVT/PE: No History of Uncontrolled Diabetes: No Urinary Catheter: No History of Decub. Ulcer: No History Surgical Site Infection Following: None - Disposition Have Diagnosis and Disposition been Completed?: Yes Diagnosis: Abdominal pain Disposition: HOSPITALIZED Disposition Time: 00:53 Patient Plan: Observation Patient Problems: Current Active Problems Problem Status Onset Abdominal pain Acute Condition: STABLE
[2017-03-20 22:32] LABS: HEMATOCRIT 31.5 % (36.0-48.0); MEAN CELL VOLUME 85.8 fl (80.0-105.0); MEAN CORPUSCULAR HEMOGLOBIN 28.3 pg (25.0-35.0); MEAN PLATELET VOLUME 9.2 fl (7.0-11.0); RED CELL DISTRIBUTION WIDTH 14.3 % (11.5-14.5); WHITE BLOOD COUNT 5.8 10^3/ul (4.5-11.0)
[2017-03-20 22:34] LABS: URINE APPEARANCE CLEAR (CLEAR); URINE BILIRUBIN NEGATIVE (NEGATIVE); URINE BLOOD NEGATIVE (NEGATIVE); URINE COLOR YELLOW (YELLOW); URINE GLUCOSE (UA) NEGATIVE (NEGATIVE); URINE KETONE NEGATIVE (NEGATIVE); URINE LEUKOCYTE ESTERASE NEGATIVE Leu/uL (NEGATIVE); URINE PROTEIN 30 mg/dL (<30 mg/dL)
[2017-03-20 22:39] LABS: ALKALINE PHOSPHATASE 75 U/L (38-126); ALT/SGPT 28 U/L (7-56); AST/SGOT 41 U/L (14-36); BILIRUBIN,TOTAL 0.2 mg/dL (0.2-1.3); BLOOD UREA NITROGEN 9 mg/dL (7-21); CARBON DIOXIDE 27 mmol/L (21-33); CHLORIDE 105 mmol/L (98-107); GFR AFRICAN-AMERICAN > 60; GLUCOSE,RANDOM 93 mg/dL (70-110); LIPASE 945 U/L (23-300); POTASSIUM 3.7 mmol/L (3.6-5.0); SODIUM 142 mmol/L (132-148)
[2017-03-20 22:40] LABS: URINE AMORPHOUS SEDIMENT FEW; URINE BACTERIA MOD (NEG); URINE EPITHELIAL CELLS MANY /hpf (0-5); URINE RBC 0 - 2 /hpf (0-2); URINE WBC 0 - 2 /hpf (0-6)
[2017-03-20] MEDS ORDERED: Iohexol 300 100 ML IJ ONE (22:45)
--- NOTE | 2017-03-21 00:28 | CT ---
EXAM: CT Abdomen and Pelvis With Intravenous Contrast CLINICAL HISTORY: 26 years old, female; Pain; Other: Upper abdominal pain S/P cholecystectomy 2 weeks p; Prior surgery; Surgery date: <1 month TECHNIQUE: Axial computed tomography images of the abdomen and pelvis with intravenous contrast. All CT scans at this facility use one or more dose reduction techniques, viz.: automated exposure control; ma/kV adjustment per patient size (including targeted exams where dose is matched to indication; i.e. head); or iterative reconstruction technique. Coronal and sagittal reformatted images were created and reviewed. CONTRAST: 100 mL of omnipaque administered intravenously. COMPARISON: CT - ABD PELVIS IV CONTRAST ONLY 2017-02-02 23:26 FINDINGS: Lower thorax: No acute findings. ABDOMEN: Liver: Mild heterogeneity inferior RIGHT lobe. Gallbladder and bile ducts: Cholecystectomy. Biliary stent. Air within biliary tree, increased from previous examination. Slightly hyperdense fluid/stranding within gallbladder fossa/joey hepatis without discrete peripherally enhancing collection. Few apparent small foci of air within gallbladder fossa. Pancreas: No ductal dilation. No mass. Spleen: No splenomegaly. Adrenals: No mass. Kidneys and ureters: No mass. No hydronephrosis. Stomach and bowel: No definite mural thickening. No obstruction. Appendix: Normal caliber. No definite inflammation. PELVIS: Bladder: Unremarkable. Reproductive: Unremarkable as visualized. ABDOMEN and PELVIS: Intraperitoneal space: Trace free fluid within abdomen. Small free fluid within pelvis. Bones/joints: No acute fracture. Soft tissues: Mild stranding within subcutaneous tissues. 8.6 x 2.3 x 1.6 cm fluid collection within anterior abdominal wall subjacent to skin arnaldo. Mild soft tissue swelling/stranding RIGHT abdominal wall musculature. Mild soft tissue thickening along umbilicus. Vasculature: Unremarkable. No aneurysm. Lymph nodes: No pathologically enlarged lymph nodes. IMPRESSION: 1. Fluid/stranding within gallbladder fossa. DDX: Postsurgical changes, biliary leak, phlegmon. 2. Air within gallbladder fossa. DDX: Postsurgical changes, biliary leak, phlegmon, bowel perforation. 3. Heterogeneity of RIGHT lobe of liver, possibly nonspecific hepatitis. Clinical correlation is needed. 4. Fluid collection within anterior abdominal wall. DDX: Seroma, hematoma, phlegmon/early abscess. 5. Incidental/non-acute findings are described above.
[2017-03-21] MEDS ORDERED: Piperacillin/Tazobact 3.375 gm 100 ML IVPB ONE (01:47)
[2017-03-21] MEDS ORDERED: Vancomycin 1gm in NS 250ml 1 GM/250 ML BAG IVPB ONE (02:20)
[2017-03-21] MEDS ORDERED: Morphine 4 mg/ml ISec ONE (05:44)
--- NOTE | 2017-03-21 05:50 | CP.PCM.HP ---
<JordiMike - Last Filed: 03/21/17 07:40> History of Present Illness - History of Present Illness History of Present Illness: CC: RUQ pain This is a 26 year old female with a past medical history of cholecystitis(s/p open Cholecystecomy 2 wks. ago) and choledocolithiasis (s/p stent placement)who presents to the emergency department complaining of abdominal pain for the past couple of days. The patient reports describes the pain as throbbing in nature with no radiation. The patient rates the pain a 7/10 in severity. The patient reports taking some Tylenol for the pain however there was no improvement in her symptoms. The patient decided to come to the emergency room after speaking with her doctor. The patient denies any chest pain, shortness of breath, lightheadedness, dizziness, sore throat, sick contacts, changes in vision, constipation, diarrhea, syncopal episodes, fevers, chills, nausea, vomiting, or any other complaints. Past medical history: cholecystitis, choledocolithiasis Medications: Tramadol Past surgical history: cholecystecomy, stent placement and Allergies: Penicillin Social hx: Denies smoking. Social drinker. Reports occasional marijuana use. Present on Admission - Present on Admission Any Indicators Present on Admission: No Review of Systems - Constitutional Constitutional: absent: Anorexia, Chills, Daytime Sleepiness, Headache, Snoring , Weakness - EENT Eyes: absent: Blind Spots, Blurred Vision, Diplopia, Itchy Eyes, Loss of Peripheral Vision Ears: absent: Decreased Hearing, Ear Discharge, Disequilibrium, Dizziness Nose/Mouth/Throat: absent: Epistaxis, Nasal Congestion, Nasal Trauma, Nose Pain , Sinus Pressure, Dysphagia, Mouth Pain - Cardiovascular Cardiovascular: absent: Chest Pain, Diaphoresis, Dyspnea on Exertion, Irregular Heart Rhythm, Leg Edema, Lightheadedness, Orthopnea - Respiratory Respiratory: absent: Cough, Dyspnea, Hemoptysis, Wheezing, Snoring, Chest Congestion - Gastrointestinal Gastrointestinal: Abdominal Pain. absent: Belching, Change in Bowel Habits, Coffee Ground Emesis, Cramping, Diarrhea, Hematemesis, Melena, Nausea, Vomiting - Musculoskeletal Musculoskeletal: absent: Arthralgias, Atrophy, Loss of Height, Neck Pain, Numbness, Stiffness - Integumentary Integumentary: absent: Striae, Swelling, Wounds - Neurological Neurological: absent: Abnormal Gait, Abnormal Hearing, Disequilibrium, Dizziness , Headaches, Paresthesias - Psychiatric Psychiatric: absent: Anxiety, Behavioral Changes, Confusion, Depression - Endocrine Endocrine: absent: Cold Intolorance, Polydipsia, Polyphagia, Polyuria Past Patient History - Infectious Disease Hx of Infectious Diseases: None - Past Social History Smoking Status: Never Smoked - CARDIAC Hx Cardiac Disorders: No - PULMONARY Hx Respiratory Disorders: No - NEUROLOGICAL Hx Neurological Disorder: No - HEENT Hx HEENT Problems: Yes (ICTERIC SCHLERAE-DX WITH CBD STONE) - RENAL Hx Chronic Kidney Disease: No - ENDOCRINE/METABOLIC Hx Endocrine Disorders: No - HEMATOLOGICAL/ONCOLOGICAL Hx Blood Transfusions: (UNKNOWN) Hx Blood Transfusion Reaction: (UNKNOWN) - INTEGUMENTARY Hx Dermatological Problems: Yes (JAUNDICED-GB STONE) - MUSCULOSKELETAL/RHEUMATOLOGICAL Hx Falls: No - GASTROINTESTINAL Hx Gastrointestinal Disorders: Yes Hx Gall Bladder Disease: Yes (CBD STONE 19 MM 12-19-16) - GENITOURINARY/GYNECOLOGICAL Hx Genitourinary Disorders: Yes (C/S X 1) - PSYCHIATRIC Hx Psychophysiologic Disorder: Yes (SUBSTANCE USE,DRINKS OCCASIONALLY) Hx Substance Use: Yes (SOCIALLY) - SURGICAL HISTORY Hx Section: Yes (x1) Other/Comment: stents for gallstones - ANESTHESIA Hx Anesthesia: Yes Hx Anesthesia Reactions: No Hx Malignant Hyperthermia: No Meds Allergies/Adverse Reactions: Allergies Allergy/AdvReac Type Severity Reaction Status Date / Time Penicillins AdvReac RASH Verified 12/19/16 14:28 Physical Exam - Head Exam Head Exam: ATRAUMATIC, NORMAL INSPECTION, NORMOCEPHALIC - Eye Exam Eye Exam: EOMI, Normal appearance, PERRL. absent: Periorbital tenderness Pupil Exam: NORMAL ACCOMODATION, PERRL. absent: Irregular, Unequal - ENT Exam ENT Exam: Mucous Membranes Moist, Normal Exam. absent: Normal Oropharynx, TM's Normal Bilaterally - Neck Exam Neck exam: Positive for: Normal Inspection. Negative for: Lymphadenopathy, Thyromegaly - Respiratory Exam Respiratory Exam: Clear to Auscultation Bilateral, NORMAL BREATHING PATTERN. absent: Chest Wall Tenderness, Prolonged Expiratory Phase, Respiratory Distress - Cardiovascular Exam Cardiovascular Exam: REGULAR RHYTHM, RRR, +S1, +S2. absent: Diastolic murmur, Gallop, Rubs - GI/Abdominal Exam GI & Abdominal Exam: Normal Bowel Sounds, Tenderness. absent: Distended, Mass, Pulsatile Mass, Rigid Additional comments: RUQ tenderness to palpation. Surgical arnaldo in place at the incision site. Surgical scar healing well. No signs of discharge, erythema, swelling noted. Area of induration appreciated superior to the incision. - Back Exam Back exam: NORMAL INSPECTION. absent: CVA tenderness (L), CVA tenderness (R), paraspinal tenderness - Neurological Exam Neurological exam: Alert, CN II-XII Intact, Normal Gait, Oriented x3 - Psychiatric Exam Psychiatric exam: Normal Affect, Normal Mood - Skin Skin Exam: Dry, Intact, Normal Color, Warm Results - Vital Signs Recent Vital Signs: Last Vital Signs Temp 98.2 F 03/21/17 00:40 Pulse 55 L 03/21/17 00:40 Resp 18 03/21/17 00:40 BP 106/59 L 03/21/17 00:40 Pulse Ox 100 03/21/17 00:40 - Labs Result Diagrams: 03/20/17 22:20 03/20/17 22:20 Assessment & Plan - Assessment and Plan (Free Text) Assessment: This is a 26 year old male with a past medical history of cholecystits(s/p cholecystitis 2 weeks) and choledocolithiasis(s/p stent placement) who is being admitted for RUQ abdominal for the past two days. Plan: 1. RUQ pain -Discussed with Dr. Cordova the surgeon who performed the cholecystecomy. He agreed to see the patient and to admit through the Hospitalist service. -GI Dr. Carlos was consulted. Will f/u with rec's. -Abdomen/pelvis CT scan done in the emergency department shows fluid/stranding within gallbladder fossa, air within gallbladder fossa, heterogeneity of Right lobe of liver, possible nonspecific hepatitis, fulid collection within anterior abdominal wall measuring 8.6x2.3x1.6cm, biliary leak, phlegmon, and bowel perforation. -Patient tender to palpation in the RUQ. Negative Hickey's sign. -Patient given 1 Dose of Vancomycin and Zosyn in the Emergency department. -Ciprofloxacin started by Dr. Cordova. -Keep NPO. -IV fluids NS @100mls/hr -Morphine 2mg Q4PRN for pain management. 2.Normocytic anemia -Patient's Hgb 10.4 on admission. MCV 85.8. Patient is hemodynamically stable. -Asymptomatic at this time. -Will continue to monitor closely. 3. Elevated Lipase level -Lipase 945 upon admission. -Abdomen/pelvis ct showed no ductal dilatation of the pancreas and no mass. -Will monitor closely. 4.Thrombocytosis -Platelet count 578 on admission. -Likely reactive. Will monitor closely. GI ppx -Protonix DVT/PE ppx -SCD's <Monique Gilman - Last Filed: 03/21/17 07:46> Results - Vital Signs Recent Vital Signs: Last Vital Signs Temp 98.6 F 03/21/17 05:51 Pulse 55 L 03/21/17 05:51 Resp 18 03/21/17 05:51 BP 111/65 03/21/17 05:51 Pulse Ox 100 03/21/17 00:40 - Labs Result Diagrams: 03/20/17 22:20 03/20/17 22:20 Attending/Attestation - Attestation I have personally seen and examined this patient.: Yes I have fully participated in the care of the patient.: Yes I have reviewed all pertinent clinical information: Yes Notes (Text): 03/21/17 07:45 Agree with documentation and orders placed.
[2017-03-21] MEDS ORDERED: Morphine 4 mg/ml ISec IV PRN (05:55)
[2017-03-21] MEDS ORDERED: DiphenhydrAMINE 50 mg/ml Inj IVP ONE (06:00)
[2017-03-21 06:16] VITALS: BMI 24.7
[2017-03-21] MEDS: Sodium Chloride 0.9% 1,000 ML IV SCH ×2 (07:50→16:24)
[2017-03-21 08:43] LABS: BASO # 0.02 K/mm3 (0.0-2.0); BASO % 0.4 % (0.0-3.0); EOS # 0.1 (0.0-0.7); GRAN # 2.31 (1.4-6.5); HEMATOCRIT 27.9 % (36.0-48.0); LYMPH # 2.1 (1.2-3.4); LYMPH % 42.9 % (22.0-35.0); MEAN CELL VOLUME 85.6 fl (80.0-105.0); MEAN CORPUSCULAR HEMOGLOBIN 27.9 pg (25.0-35.0); MEAN CORPUSCULAR HGB CONC 32.6 g/dl (31.0-37.0); MEAN PLATELET VOLUME 9.2 fl (7.0-11.0); MONO # 0.4 (0.1-0.6); MONO % 8.7 % (1.0-6.0); RED CELL DISTRIBUTION WIDTH 14.2 % (11.5-14.5); WHITE BLOOD COUNT 4.9 10^3/ul (4.5-11.0)
[2017-03-21 09:08] LABS: ALB/GLOB RATIO 0.9 (1.1-1.8); ALKALINE PHOSPHATASE 66 U/L (38-126); ALT/SGPT 33 U/L (7-56); AST/SGOT 45 U/L (14-36); BILIRUBIN,TOTAL 0.2 mg/dL (0.2-1.3); BLOOD UREA NITROGEN 6 mg/dL (7-21); CARBON DIOXIDE 25 mmol/L (21-33); CHLORIDE 108 mmol/L (98-107); GFR AFRICAN-AMERICAN > 60; GLUCOSE,RANDOM 92 mg/dL (70-110); POTASSIUM 3.7 mmol/L (3.6-5.0); SODIUM 142 mmol/L (132-148); TOTAL PROTEIN 6.6 g/dL (5.8-8.3)
[2017-03-21] MEDS ORDERED: Ciprofloxacin 400mg/200ml D5W 400 MG/200 ML BAG IVPB SCH (10:00)
[2017-03-21] MEDS: Ciprofloxacin 400mg/200ml D5W 400 MG/200 ML BAG IVPB SCH ×2 (10:15→21:35)
--- NOTE | 2017-03-21 11:43 | CP.PCM.CON ---
History of Present Illness - History of Present Illness History of Present Illness: PGY1 Surgical Consult Note for Dr. Cordova Patient is a 26 year old patient s/p open michael with Dr. Cordova POD 12 (Surgery on 03/09/17). Patient is complaining of increasing pain located in her RUQ over the past 2 to 3 days. The pain is throbbing in nature and does not radiate anywhere. The patient states that she is attempted to take Tylenol but it did not help. The patient reports speaking to Dr. Cordova, who instructed her to come to the hospital. Patient reports eating well and has had no changes in her bowel movements. She denies fever, chills, nausea, vomiting, sob, chest pain, vision changes, urinary symptoms, sore throat, rhinorrhea or sick contacts. PMH: cholecystitis, choledocolithiasis PSH: open cholecystecomy, stent placement, and multiple ERCPs Family hx: unremarkable Social hx: Denies smoking. Social drinker. Reports occasional marijuana use. Lives with her boyfriend and 5 year old son. Allergies: Penicillin Review of Systems - Constitutional Constitutional: absent: Chills, Fever, Headache, Weakness - EENT Eyes: absent: Blurred Vision, Change in Vision Ears: absent: Dizziness Nose/Mouth/Throat: absent: Nasal Congestion, Nasal Discharge, Sore Throat - Cardiovascular Cardiovascular: absent: Chest Pain, Dyspnea, Dyspnea on Exertion, Syncope - Respiratory Respiratory: absent: Cough, Dyspnea on Exertion - Gastrointestinal Gastrointestinal: Abdominal Pain (RUQ). absent: Change in Bowel Habits, Coffee Ground Emesis, Constipation, Diarrhea, Early Satiety, Hematemesis, Hematochezia , Melena, Nausea, Vomiting - Genitourinary Genitourinary: absent: Difficulty Urinating, Dysuria - Musculoskeletal Musculoskeletal: absent: Muscle Cramps, Numbness, Tingling - Integumentary Integumentary: absent: Erythema, New Lesions, Non-Healing Lesions, Skin Ulcer, Sores Additional comments: Well healing surgical incision in RUQ of abdomen - Neurological Neurological: absent: Dizziness, Numbness, Headaches, Tingling, Weakness - Endocrine Endocrine: absent: Fatigue, Palpitations Past Patient History - Infectious Disease Hx of Infectious Diseases: None - Past Social History Smoking Status: Never Smoked - CARDIAC Hx Cardiac Disorders: No - PULMONARY Hx Respiratory Disorders: No - NEUROLOGICAL Hx Neurological Disorder: No - HEENT Hx HEENT Problems: Yes (ICTERIC SCHLERAE-DX WITH CBD STONE) - RENAL Hx Chronic Kidney Disease: No - ENDOCRINE/METABOLIC Hx Endocrine Disorders: No - HEMATOLOGICAL/ONCOLOGICAL Hx Blood Transfusions: (UNKNOWN) Hx Blood Transfusion Reaction: (UNKNOWN) - INTEGUMENTARY Hx Dermatological Problems: Yes (JAUNDICED-GB STONE) - MUSCULOSKELETAL/RHEUMATOLOGICAL Hx Falls: No - GASTROINTESTINAL Hx Gastrointestinal Disorders: Yes Hx Gall Bladder Disease: Yes (CBD STONE 19 MM 12-19-16) - GENITOURINARY/GYNECOLOGICAL Hx Genitourinary Disorders: Yes (C/S X 1) - PSYCHIATRIC Hx Psychophysiologic Disorder: Yes (SUBSTANCE USE,DRINKS OCCASIONALLY) Hx Substance Use: Yes (SOCIALLY) - SURGICAL HISTORY Hx Section: Yes (x1) Other/Comment: stents for gallstones - ANESTHESIA Hx Anesthesia: Yes Hx Anesthesia Reactions: No Hx Malignant Hyperthermia: No Meds Allergies/Adverse Reactions: Allergies Allergy/AdvReac Type Severity Reaction Status Date / Time Penicillins AdvReac RASH Verified 12/19/16 14:28 - Medications Medications: Current Medications Sodium Chloride (Sodium Chloride 0.9%) 1,000 mls @ 100 mls/hr IV .Q10H [facility] Last Admin: 03/21/17 07:50 Dose: 100 mls/hr Ciprofloxacin (Cipro 400mg/200ml Dsw) 400 mg in 200 mls @ 133.3 mls/hr IVPB Q12 [facility] PRN Reason: Protocol Stop: 03/21/17 23:31 Last Admin: 03/21/17 10:15 Dose: 133.3 mls/hr Metronidazole (Flagyl) 500 mg in 100 mls @ 100 mls/hr IVPB Q8 [facility] PRN Reason: Protocol Morphine Sulfate (Morphine) 2 mg IV Q4H PRN PRN Reason: Pain, moderate (4-7) Pantoprazole Sodium (Protonix Ec Tab) 40 mg PO 0600 [facility] Physical Exam - Constitutional Appears: Well, No Acute Distress - Head Exam Head Exam: ATRAUMATIC, NORMOCEPHALIC - Eye Exam Eye Exam: EOMI, Normal appearance. absent: Scleral icterus - ENT Exam ENT Exam: Mucous Membranes Moist - Neck Exam Neck exam: Positive for: Full Rom - Respiratory Exam Respiratory Exam: Clear to Auscultation Bilateral, NORMAL BREATHING PATTERN. absent: Accessory Muscle Use, Rales, Wheezes, Respiratory Distress - Cardiovascular Exam Cardiovascular Exam: REGULAR RHYTHM, +S1, +S2 - GI/Abdominal Exam GI & Abdominal Exam: Guarding (RUQ), Normal Bowel Sounds, Soft, Tenderness (RUQ ). absent: Diminished Bowel Sounds, Distended, Firm, Rigid Additional comments: Non-erythematous area of induration surrounding surgical site approximately 1 cm on the superior and inferior aspects of incision. Area of induration increases towards the left portion of the surgical incision to 3 cm on superior and inferior aspects. Edges of incision are approximated well with no drainage. - Extremities Exam Extremities exam: Positive for: normal capillary refill, normal inspection, pedal pulses present. Negative for: calf tenderness, pedal edema, tenderness - Back Exam Back exam: NORMAL INSPECTION. absent: CVA tenderness (L), CVA tenderness (R) - Neurological Exam Neurological exam: Alert, Oriented x3 - Psychiatric Exam Psychiatric exam: Normal Affect, Normal Mood - Skin Skin Exam: Dry, Normal Color, Warm Results - Vital Signs Recent Vital Signs: Last Vital Signs Temp 97.2 F L 03/21/17 07:30 Pulse 60 03/21/17 07:30 Resp 18 03/21/17 07:30 BP 103/55 L 03/21/17 07:30 Pulse Ox 97 03/21/17 07:30 - Labs Result Diagrams: 03/21/17 08:30 03/21/17 08:30 Labs: Laboratory Results - last 24 hr 03/21/17 03/21/17 08:30 08:30 WBC 4.9 RBC 3.26 L Hgb 9.1 L Hct 27.9 L MCV 85.6 MCH 27.9 MCHC 32.6 RDW 14.2 Plt Count 493 H MPV 9.2 Gran % 47.0 L Lymph % (Auto) 42.9 H [place] % (Auto) 8.7 H Eos % (Auto) 1.0 L Baso % (Auto) 0.4 Gran # 2.31 Lymph # 2.1 Luna # 0.4 Eos # 0.1 Baso # 0.02 Sodium 142 Potassium 3.7 Chloride 108 H Carbon Dioxide 25 Anion Gap 13 BUN 6 L Creatinine 0.5 L Est GFR ( Amer) > 60 Est GFR (Non-Af Amer) > 60 Random Glucose 92 Calcium 9.0 Total Bilirubin 0.2 AST 45 H ALT 33 Alkaline Phosphatase 66 Total Protein 6.6 Albumin 3.2 Globulin 3.4 Albumin/Globulin Ratio 0.9 L Assessment & Plan - Assessment and Plan (Free Text) Assessment: This is a 26 year old female s/p open michael with stent placement (03/09/17) POD 12 with RUQ abdominal pain. Plan: Post-surgical Seroma - s/p open michael with stent placement POD 12 - Abdominal CT w/ IV contrast only * Fluid collection within anterior abdominal wall - Removal of arnaldo, no need for drainage at this time - F/u GI recs with Dr. Carlos for stent removal - No surgical intervention at this time. Case discussed with Dr. Art Joseph Rosalina PGY1
--- NOTE | 2017-03-21 13:27 | CP.PCM.CON ---
<Gilma Israel - Last Filed: 03/21/17 13:18> History of Present Illness - History of Present Illness History of Present Illness: Seen and examined at the bedside earlier this morning, the chart was reviewed. Request for GI evaluation is for abdominal pain. HPI:This is a 26-year-old female with a past medical history of cholecystitis and choledocholithiasis with history of stent who is known to our service had multiple ERCP with stent placement and removal. Her most recent ERCP was on , she had a Spyglass, stent removed in the common bile duct and lithotripsy was done, she had a balloon sweep and stone fragments were removed. There was a distal CBD stricture noticed which was dilated, the pulse cholangiogram contrast drainage was slow so 10 Pashto 9 cm stent was placed. She had Cholecystectomy done 2 weeks ago. She came to the emergency room with complaints of abdominal pain . The patient describes it as a throbbing pain in nature and is nonradiating and is intermittent, m ost of the pain is in the epigastric to the right upper quadrant.She denies fever, chills, nausea, vomiting, shortness of breath or chest pain. She had a CAT scan done on admission and that reported some fluid/stranding within the gallbladder fossa, air within the gallbladder fossa and fluid collection within the anterior abdominal wall. Consideration of postsurgical changes versus biliary leak. Patient is currently nothing by mouth, in no acute distress. PMH: Denies cardiac, respiratory, sustance abuse, CBD stones,, status post ERCPs and stent removals, most recent described above. PSH: x1, recent open cholecystectomy2 weeks ago Allergies: PCN Family HX: denies MEDS:as per MAR Social: denies smoking, (+)etoh, (+)substance use ROS: system reviewed with positive findings, see HPI Past Patient History - Infectious Disease Hx of Infectious Diseases: None - Past Social History Smoking Status: Never Smoked - CARDIAC Hx Cardiac Disorders: No - PULMONARY Hx Respiratory Disorders: No - NEUROLOGICAL Hx Neurological Disorder: No - HEENT Hx HEENT Problems: Yes (ICTERIC SCHLERAE-DX WITH CBD STONE) - RENAL Hx Chronic Kidney Disease: No - ENDOCRINE/METABOLIC Hx Endocrine Disorders: No - HEMATOLOGICAL/ONCOLOGICAL Hx Blood Transfusions: (UNKNOWN) Hx Blood Transfusion Reaction: (UNKNOWN) - INTEGUMENTARY Hx Dermatological Problems: Yes (JAUNDICED-GB STONE) - MUSCULOSKELETAL/RHEUMATOLOGICAL Hx Falls: No - GASTROINTESTINAL Hx Gastrointestinal Disorders: Yes Hx Gall Bladder Disease: Yes (CBD STONE 19 MM 12-19-16) - GENITOURINARY/GYNECOLOGICAL Hx Genitourinary Disorders: Yes (C/S X 1) - PSYCHIATRIC Hx Psychophysiologic Disorder: Yes (SUBSTANCE USE,DRINKS OCCASIONALLY) Hx Substance Use: Yes (SOCIALLY) - SURGICAL HISTORY Hx Section: Yes (x1) Other/Comment: stents for gallstones - ANESTHESIA Hx Anesthesia: Yes Hx Anesthesia Reactions: No Hx Malignant Hyperthermia: No Meds Allergies/Adverse Reactions: Allergies Allergy/AdvReac Type Severity Reaction Status Date / Time Penicillins AdvReac RASH Verified 12/19/16 14:28 - Medications Medications: Current Medications Sodium Chloride (Sodium Chloride 0.9%) 1,000 mls @ 100 mls/hr IV .Q10H [facility] Last Admin: 03/21/17 07:50 Dose: 100 mls/hr Ciprofloxacin (Cipro 400mg/200ml Dsw) 400 mg in 200 mls @ 133.3 mls/hr IVPB Q12 [facility] PRN Reason: Protocol Stop: 03/21/17 23:31 Last Admin: 03/21/17 10:15 Dose: 133.3 mls/hr Metronidazole (Flagyl) 500 mg in 100 mls @ 100 mls/hr IVPB Q8 [facility] PRN Reason: Protocol Morphine Sulfate (Morphine) 2 mg IV Q4H PRN PRN Reason: Pain, moderate (4-7) Pantoprazole Sodium (Protonix Ec Tab) 40 mg PO 0600 [facility] Physical Exam - Constitutional Appears: No Acute Distress - Head Exam Head Exam: NORMOCEPHALIC - Eye Exam Eye Exam: Normal appearance. absent: Scleral icterus - ENT Exam ENT Exam: Mucous Membranes Moist - Neck Exam Neck exam: Positive for: Normal Inspection - Respiratory Exam Respiratory Exam: Clear to Auscultation Bilateral, NORMAL BREATHING PATTERN. absent: Respiratory Distress - Cardiovascular Exam Cardiovascular Exam: +S1, +S2 - GI/Abdominal Exam GI & Abdominal Exam: Soft, Tenderness (epigastric/right upper quadrant, right lateral incision with arnaldo open to air dry and intact, no erythema) - Extremities Exam Extremities exam: Positive for: pedal pulses present. Negative for: calf tenderness, pedal edema - Neurological Exam Neurological exam: Alert, Oriented x3 - Skin Skin Exam: Dry, Warm Results - Vital Signs Recent Vital Signs: Last Vital Signs Temp 97.2 F L 03/21/17 07:30 Pulse 60 03/21/17 07:30 Resp 18 03/21/17 07:30 BP 103/55 L 03/21/17 07:30 Pulse Ox 97 03/21/17 07:30 - Labs Result Diagrams: 03/21/17 08:30 03/21/17 08:30 Labs: Laboratory Results - last 24 hr 03/21/17 03/21/17 08:30 08:30 WBC 4.9 RBC 3.26 L Hgb 9.1 L Hct 27.9 L MCV 85.6 MCH 27.9 MCHC 32.6 RDW 14.2 Plt Count 493 H MPV 9.2 Gran % 47.0 L Lymph % (Auto) 42.9 H [place] % (Auto) 8.7 H Eos % (Auto) 1.0 L Baso % (Auto) 0.4 Gran # 2.31 Lymph # 2.1 [place] # 0.4 Eos # 0.1 Baso # 0.02 Sodium 142 Potassium 3.7 Chloride 108 H Carbon Dioxide 25 Anion Gap 13 BUN 6 L Creatinine 0.5 L Est GFR ( Amer) > 60 Est GFR (Non-Af Amer) > 60 Random Glucose 92 Calcium 9.0 Total Bilirubin 0.2 AST 45 H ALT 33 Alkaline Phosphatase 66 Total Protein 6.6 Albumin 3.2 Globulin 3.4 Albumin/Globulin Ratio 0.9 L Assessment & Plan - Assessment and Plan (Free Text) Assessment: Assessment: Abdominal pain, rule out biliary leak Status post recent open cholecystectomy (2 weeks ago) History of CBD stones/stent, last stent insertion was 02/21/17 Plan: CT scan of abdomen and pelvis reviewed with radiologist, for concern of biliary leak, we will request for HIDA scan for further evaluation, before considering stent removal. Nothing by mouth, continue IV fluids On IV antibiotics of Cipro and Flagyl Continue PPI Morphine for pain Surgical follow-up Monitor LFTs Plan discussed with patient Thank you for this consult and for allowing us to participate in your patient's care, further recommendations based upon clinical course. Seen and discussed with Dr. Medina. <Alexus Carlos V - Last Filed: 03/21/17 23:48> Meds - Medications Medications: Current Medications Sodium Chloride (Sodium Chloride 0.9%) 1,000 mls @ 100 mls/hr IV .Q10H [facility] Last Admin: 03/21/17 16:24 Dose: 100 mls/hr Metronidazole (Flagyl) 500 mg in 100 mls @ 100 mls/hr IVPB Q8 [facility] PRN Reason: Protocol Last Admin: 03/21/17 21:35 Dose: 100 mls/hr Morphine Sulfate (Morphine) 2 mg IV Q4H PRN PRN Reason: Pain, moderate (4-7) Pantoprazole Sodium (Protonix Ec Tab) 40 mg PO 0600 [facility] Results - Vital Signs Recent Vital Signs: Last Vital Signs Temp 98.3 F 03/21/17 16:00 Pulse 56 L 03/21/17 16:00 Resp 18 03/21/17 16:00 BP 116/73 03/21/17 16:00 Pulse Ox 100 03/21/17 16:00 - Labs Result Diagrams: 03/21/17 08:30 03/21/17 08:30 Labs: Laboratory Results - last 24 hr 03/21/17 03/21/17 03/21/17 08:30 08:30 16:19 WBC 4.9 RBC 3.26 L Hgb 9.1 L Hct 27.9 L MCV 85.6 MCH 27.9 MCHC 32.6 RDW 14.2 Plt Count 493 H MPV 9.2 Gran % 47.0 L Lymph % (Auto) 42.9 H [place] % (Auto) 8.7 H Eos % (Auto) 1.0 L Baso % (Auto) 0.4 Gran # 2.31 Lymph # 2.1 [place] # 0.4 Eos # 0.1 Baso # 0.02 Sodium 142 Potassium 3.7 Chloride 108 H Carbon Dioxide 25 Anion Gap 13 BUN 6 L Creatinine 0.5 L Est GFR ( Amer) > 60 Est GFR (Non-Af Amer) > 60 POC Glucose (mg/dL) 154 H Random Glucose 92 Calcium 9.0 Total Bilirubin 0.2 AST 45 H ALT 33 Alkaline Phosphatase 66 Total Protein 6.6 Albumin 3.2 Globulin 3.4 Albumin/Globulin Ratio 0.9 L Attending/Attestation - Attestation I have personally seen and examined this patient.: Yes I have fully participated in the care of the patient.: Yes I have reviewed all pertinent clinical information: Yes Notes (Text): This is an addendum to GI progress report dictated by Gilma Israel APN.The patient was seen and examined earlier. Medical records, lab studies, imagings were reviewed. Last 24 hours events reviewed. Agreed with the above treatment plan as outlined in Gilma Israel APN's notes the with the addition of the following Patient has intermittent episodes of upper abdominal pain On examination patient is a mild tenderness on deep palpation in the epigastric area. The surgical incision appear to me feeling well CT scan was reviewed as a concern about biliary leak . It is reasonable to leave the stent in place if there is any consent of both the biliary leak Request her HIDA scan which has been done official report pending I would consider endoscopic evaluation after reviewing the above workup. Patient's lipase is also found to be related to Pancreatic Contour Appears Okay We Will Repeat the Labs Thank you very much for allowing us to participate in the care of this patient 03/21/17 23:43
[2017-03-21] MEDS: metroNIDAZOLE IV 500 mg/100 ml 500 MG/100 ML BAG IVPB SCH ×2 (13:38→21:35)
[2017-03-22] MEDS ORDERED: Pantoprazole 40 mg EC Tab PO SCH (06:00)
[2017-03-22] MEDS: metroNIDAZOLE IV 500 mg/100 ml 500 MG/100 ML BAG IVPB SCH ×2 (06:37→17:24)
[2017-03-22 06:39] LABS: MEAN CELL VOLUME 84.8 fl (80.0-105.0); MEAN CORPUSCULAR HEMOGLOBIN 27.8 pg (25.0-35.0); MEAN CORPUSCULAR HGB CONC 32.8 g/dl (31.0-37.0); MEAN PLATELET VOLUME 9.1 fl (7.0-11.0); RED CELL DISTRIBUTION WIDTH 14.1 % (11.5-14.5); WHITE BLOOD COUNT 3.7 10^3/ul (4.5-11.0)
[2017-03-22 07:07] LABS: ALB/GLOB RATIO 0.9 (1.1-1.8); ALKALINE PHOSPHATASE 65 U/L (38-126); ALT/SGPT 33 U/L (7-56); AMYLASE 69 U/L (35-125); AST/SGOT 28 U/L (14-36); BILIRUBIN,TOTAL 0.4 mg/dL (0.2-1.3); BLOOD UREA NITROGEN 5 mg/dL (7-21); CALCIUM 9.2 mg/dL (8.4-10.5); CARBON DIOXIDE 25 mmol/L (21-33); CHLORIDE 105 mmol/L (98-107); GFR AFRICAN-AMERICAN > 60; GLUCOSE,RANDOM 89 mg/dL (70-110); LIPASE 57 U/L (23-300); POTASSIUM 3.9 mmol/L (3.6-5.0); SODIUM 139 mmol/L (132-148); TOTAL PROTEIN 7.1 g/dL (5.8-8.3)
[2017-03-22 07:09] LABS: MAGNESIUM 1.7 mg/dL (1.7-2.2)
--- NOTE | 2017-03-22 07:45 | CP.PCM.PN ---
<STEFANO DARLING - Last Filed: 03/22/17 10:51> Subjective - Date & Time of Evaluation Date of Evaluation: 03/22/17 Time of Evaluation: 07:42 - Subjective Subjective: Medicine Progress Note: Pt seen and examined at bedside. Pt denies any acute overnight events. [place] were removed yesterday by surgery. Pt states that abdominal pain is improving. Pt's diet was advanced yesterday and patient tolerated well. Pt denied nausea, vomiting, diarrhea, CP, SOB, fever, chills, APPLE, dizziness, or dysuria. Objective - Vital Signs/Intake and Output Vital Signs (last 24 hours): Temp Pulse Resp BP Pulse Ox 98.3 F 56 L 18 116/73 100 03/21/17 16:00 03/21/17 16:00 03/21/17 16:00 03/21/17 16:00 03/21/17 16:00 - Medications Medications: Current Medications Sodium Chloride (Sodium Chloride 0.9%) 1,000 mls @ 100 mls/hr IV .Q10H [facility] Last Admin: 03/21/17 16:24 Dose: 100 mls/hr Metronidazole (Flagyl) 500 mg in 100 mls @ 100 mls/hr IVPB Q8 GIULIANA PRN Reason: Protocol Last Admin: 03/22/17 06:37 Dose: 100 mls/hr Ciprofloxacin (Cipro 400mg/200ml Dsw) 400 mg in 200 mls @ 133.3 mls/hr IVPB Q12 GIULIANA PRN Reason: Protocol Stop: 03/22/17 23:31 Morphine Sulfate (Morphine) 2 mg IV Q4H PRN PRN Reason: Pain, moderate (4-7) Pantoprazole Sodium (Protonix Ec Tab) 40 mg PO 0600 [facility] Last Admin: 03/22/17 06:37 Dose: 40 mg - Labs Labs: 03/22/17 06:30 03/22/17 06:30 - Constitutional Appears: No Acute Distress - Head Exam Head Exam: ATRAUMATIC, NORMOCEPHALIC - Eye Exam Eye Exam: EOMI, PERRL - ENT Exam ENT Exam: Mucous Membranes Moist - Neck Exam Neck Exam: Full ROM. absent: Lymphadenopathy, Tenderness, Thyromegaly - Respiratory Exam Respiratory Exam: Clear to Ausculation Bilateral. absent: Rales, Rhonchi, Wheezes - Cardiovascular Exam Cardiovascular Exam: RRR, +S1, +S2. absent: Diastolic murmur, Gallop, Rubs, Murmur - GI/Abdominal Exam GI & Abdominal Exam: Soft, Tenderness (RUQ). absent: Distended, Rigid, Rebound Additional comments: Incision RUQ clean, dry, and intact. Poppy removed. Consistent with open cholecystectomy. - Extremities Exam Extremities Exam: Normal Inspection - Back Exam Back Exam: NORMAL INSPECTION - Neurological Exam Neurological Exam: Alert, Awake, Oriented x3 - Psychiatric Exam Psychiatric exam: Normal Affect, Normal Mood - Skin Skin Exam: Dry, Intact, Normal Color, Warm Assessment and Plan - Assessment and Plan (Free Text) Assessment: 26 year old female with a past medical history of cholecystitis (s/p cholecystectomy, 2 weeks) and choledocolithiasis (s/p stent placement) presented with RUQ pain. Pt is being evaluated and treated for possible bile leak vs seroma. Plan: 1. RUQ pain - Abdomen/pelvis CT scan done in the emergency department shows fluid/stranding within gallbladder fossa, air within gallbladder fossa, heterogeneity of Right lobe of liver, possible nonspecific hepatitis, fulid collection within anterior abdominal wall measuring 8.6x2.3x1.6cm, biliary leak, phlegmon, and bowel perforation. - HIDA scan showed no evidence for biliary leak - Surgery consulted [place] removed from open cholecystectomy No drainage or further surgical intervention at this time - GI Dr. Carlos was consulted Pending endoscopic removal of stent as HIDA scan shows no leak - Cont Ciprofloxacin and Flagyl IVPB - NPO - IV fluids NS @100mls/hr - Morphine 2mg Q4PRN for pain management. 2. Normocytic anemia - Hgb 9.5 today, stable - Patient is hemodynamically stable. - Asymptomatic at this time. - Will continue to monitor closely. 3. Elevated Lipase level, resolved - Lipase 945 upon admission, normal at 57 - Abdomen/pelvis ct showed no ductal dilatation of the pancreas and no mass. - Will monitor closely. 4. Thrombocytosis - Plt 495 - Likely reactive. Will monitor closely. GI/DVT ppx -Protonix -SCD's Pt seen and discussed in detail with Dr. Hoyos. Tu Darling, PGY1 <Ibrahima Hoyos - Last Filed: 03/22/17 14:47> Objective - Vital Signs/Intake and Output Vital Signs (last 24 hours): Temp Pulse Resp BP Pulse Ox 98.0 F 55 L 18 113/54 L 99 03/22/17 08:00 03/22/17 08:00 03/22/17 08:00 03/22/17 08:00 03/22/17 08:00 - Medications Medications: Current Medications Sodium Chloride (Sodium Chloride 0.9%) 1,000 mls @ 100 mls/hr IV .Q10H [facility] Last Admin: 03/21/17 16:24 Dose: 100 mls/hr Metronidazole (Flagyl) 500 mg in 100 mls @ 100 mls/hr IVPB Q8 GIULIANA PRN Reason: Protocol Last Admin: 03/22/17 06:37 Dose: 100 mls/hr Ciprofloxacin (Cipro 400mg/200ml Dsw) 400 mg in 200 mls @ 133.3 mls/hr IVPB Q12 GIULIANA PRN Reason: Protocol Stop: 03/22/17 23:31 Last Admin: 03/22/17 10:00 Dose: 133.3 mls/hr Ibuprofen (Motrin Tab) 400 mg PO Q6H PRN PRN Reason: Pain, Mild (1-3) Morphine Sulfate (Morphine) 2 mg IV Q4H PRN PRN Reason: Pain, moderate (4-7) Pantoprazole Sodium (Protonix Ec Tab) 40 mg PO 0600 [facility] Last Admin: 03/22/17 06:37 Dose: 40 mg - Labs Labs: 03/22/17 06:30 03/22/17 06:30 Attending/Attestation - Attestation I have personally seen and examined this patient.: Yes I have fully participated in the care of the patient.: Yes I have reviewed all pertinent clinical information, including history, physical exam and plan: Yes Notes (Text): 03/22/17 14:42 26 year old female with past medical history of cholecystitis s/p recent cholecystectomy and choledocholithiasis s/p stent placement who presented wt complaint of RUQ pain. CT abd/pelvis showed fluid/stranding within gallbladder fossa, air within gallbladder fossa, fluid collection within anterior abdominal wall with possible biliary leak, phlegmon, vs seroma. HIDA scan however is negative for biliary leak. She is on iv antibiotics. Her symptoms have improved and tolerating liquid diet. LFTs and lipase has improved. Surgery and GI evaluation were appreciated and plan is for possible stent removal today as per GI. Ibrahima Hoyos MD Hospitalist.
[2017-03-22] MEDS ORDERED: Ciprofloxacin 400mg/200ml D5W 400 MG/200 ML BAG IVPB SCH (10:00)
--- NOTE | 2017-03-22 10:13 | NM ---
PROCEDURE: Nuclear Medicine Hepatobiliary Scan HISTORY: ?biliary leak COMPARISON: None available. TECHNIQUE: 5.0 mCi of technetium 99m Mebrofenin was administered intravenously. Planar images of the abdomen were obtained at 5 min intervals to 60 mins. Delayed images were also obtained. FINDINGS: LIVER: Timely and homogenous uptake. COMMON BILE DUCT: identified at 17 mins. GALLBLADDER: Nonvisualization SMALL BOWEL: Identified at 17 mins. IMPRESSION: No evidence of biliary leak
[2017-03-22] MEDS: Sodium Chloride 0.9% 1,000 ML IV SCH ×2 (17:25)
[2017-03-22] MEDS ORDERED: Lidocaine 2% Inj (20ml) ONE (18:10)
[2017-03-22] MEDS ORDERED: Propofol 10 mg/ml Inj (20 ML) ONE (18:10)
[2017-03-22] MEDS ORDERED: Sodium Chloride 0.9% 1,000 ML IV SCH (18:45)
[2017-03-22 18:46] VITALS: RESP 18; TEMP 98.4; O2SAT 100
[2017-03-22 19:09] VITALS: BP 116/70; PULSE 65
--- NOTE | 2017-03-22 21:21 | CP.PCM.PN ---
Subjective - Date & Time of Evaluation Date of Evaluation: 03/22/17 Time of Evaluation: 21:20 - Subjective Subjective: I was asked to co-sign order. Checked with floor nurse Brunilda. As per her, and had suggested to discharge patient home. Objective - Vital Signs/Intake and Output Vital Signs (last 24 hours): Temp Pulse Resp BP Pulse Ox 98.4 F 65 18 116/70 100 03/22/17 19:00 03/22/17 19:00 03/22/17 19:00 03/22/17 19:00 03/22/17 19:00 Intake and Output: 03/22/17 03/23/17 18:59 06:59 Intake Total 120 Balance 120 - Labs Labs: 03/22/17 06:30 03/22/17 06:30
--- NOTE | 2017-03-23 14:52 | CP.PCM.DIS ---
<STEFANO DARLING - Last Filed: 03/23/17 14:38> Provider - Provider Date of Admission: 03/21/17 00:52 Attending physician: Ibrahima Hoyos MD Primary care physician: Luis Felipe Castillo MD Consults: Surgery: Art GI: Breanna Time Spent in preparation of Discharge (in minutes): 30 Hospital Course - Lab Results Lab Results: Micro Results 03/21/17 02:10 Blood Blood Culture - Preliminary NO GROWTH AFTER 48 HOURS 03/21/17 01:40 Blood Blood Culture - Preliminary NO GROWTH AFTER 48 HOURS Most Recent Lab Values WBC 3.7 10^3/ul (4.5-11.0) L D 03/22/17 06:30 RBC 3.42 10^6/uL (3.5-6.1) L 03/22/17 06:30 Hgb 9.5 g/dL (12.0-16.0) L 03/22/17 06:30 Hct 29.0 % (36.0-48.0) L 03/22/17 06:30 MCV 84.8 fl (80.0-105.0) 03/22/17 06:30 MCH 27.8 pg (25.0-35.0) 03/22/17 06:30 MCHC 32.8 g/dl (31.0-37.0) 03/22/17 06:30 RDW 14.1 % (11.5-14.5) 03/22/17 06:30 Plt Count 495 10^3/uL (120.0-450.0) H 03/22/17 06:30 MPV 9.1 fl (7.0-11.0) 03/22/17 06:30 Gran % 47.0 % (50.0-68.0) L 03/21/17 08:30 Lymph % (Auto) 42.9 % (22.0-35.0) H 03/21/17 08:30 [place] % (Auto) 8.7 % (1.0-6.0) H 03/21/17 08:30 Eos % (Auto) 1.0 % (1.5-5.0) L 03/21/17 08:30 Baso % (Auto) 0.4 % (0.0-3.0) 03/21/17 08:30 Gran # 2.31 (1.4-6.5) 03/21/17 08:30 Lymph # 2.1 (1.2-3.4) 03/21/17 08:30 [place] # 0.4 (0.1-0.6) 03/21/17 08:30 Eos # 0.1 (0.0-0.7) 03/21/17 08:30 Baso # 0.02 K/mm3 (0.0-2.0) 03/21/17 08:30 Sodium 139 mmol/L (132-148) 03/22/17 06:30 Potassium 3.9 mmol/L (3.6-5.0) 03/22/17 06:30 Chloride 105 mmol/L (98-107) 03/22/17 06:30 Carbon Dioxide 25 mmol/L (21-33) 03/22/17 06:30 Anion Gap 13 (10-20) 03/22/17 06:30 BUN 5 mg/dL (7-21) L 03/22/17 06:30 Creatinine 0.5 mg/dL (0.7-1.2) L 03/22/17 06:30 Est GFR ( Amer) > 60 03/22/17 06:30 Est GFR (Non-Af Amer) > 60 03/22/17 06:30 POC Glucose (mg/dL) 154 mg/dL (65-110) H 03/21/17 16:19 Random Glucose 89 mg/dL (70-110) 03/22/17 06:30 Calcium 9.2 mg/dL (8.4-10.5) 03/22/17 06:30 Phosphorus 4.0 mg/dL (2.5-4.5) 03/22/17 06:30 Magnesium 1.7 mg/dL (1.7-2.2) 03/22/17 06:30 Total Bilirubin 0.4 mg/dL (0.2-1.3) 03/22/17 06:30 AST 28 U/L (14-36) 03/22/17 06:30 ALT 33 U/L (7-56) 03/22/17 06:30 Alkaline Phosphatase 65 U/L (38-126) 03/22/17 06:30 Total Protein 7.1 g/dL (5.8-8.3) 03/22/17 06:30 Albumin 3.4 g/dL (3.0-4.8) 03/22/17 06:30 Globulin 3.7 gm/dL 03/22/17 06:30 Albumin/Globulin Ratio 0.9 (1.1-1.8) L 03/22/17 06:30 Amylase 69 U/L (35-125) 03/22/17 06:30 Lipase 57 U/L (23-300) 03/22/17 06:30 Urine Color Yellow (YELLOW) 03/20/17 22:20 Urine Appearance Clear (CLEAR) 03/20/17 22:20 Urine pH 6.0 (4.7-8.0) 03/20/17 22:20 Ur Specific [place] >= 1.030 (1.005-1.035) 03/20/17 22:20 Urine Protein 30 mg/dL (<30 mg/dL) H 03/20/17 22:20 Urine Glucose (UA) Negative mg/dL (NEGATIVE) 03/20/17 22:20 Urine Ketones Negative mg/dL (NEGATIVE) 03/20/17 22:20 Urine Blood Negative (NEGATIVE) 03/20/17 22:20 Urine Nitrate Negative (NEGATIVE) 03/20/17 22:20 Urine Bilirubin Negative (NEGATIVE) 03/20/17 22:20 Urine Urobilinogen 1.0 E.U./dL (<1 E.U./dL) H 03/20/17 22:20 Ur Leukocyte Esterase Negative [place]/uL (NEGATIVE) 03/20/17 22:20 Urine RBC 0 - 2 /hpf (0-2) 03/20/17 22:20 Urine WBC 0 - 2 /hpf (0-6) 03/20/17 22:20 Ur Epithelial Cells Many /hpf (0-5) 03/20/17 22:20 Amorphous Sediment Few 03/20/17 22:20 Urine Bacteria Mod (NEG) 03/20/17 22:20 Urine HCG, Qual Negative (NEGATIVE) 03/20/17 22:20 - Hospital Course Hospital Course: Patient 26 year old female with a past medical history of cholecystitis (s/p open Cholecystecomy 2 wks. ago) and choledocolithiasis (s/p stent placement) who presented to the emergency department complaining of abdominal pain for the past couple of days. The patient described the pain as throbbing in nature with no radiation. The patient rated the pain a 7/10 in severity. The patient reported taking some Tylenol for the pain however there was no improvement in her symptoms. The patient decided to come to the emergency room after speaking with her doctor. In the ED, labs and imaging were obtained. Labs were significant for an elevated lipase, anemia, and thrombocytosis. Abdomen/pelvis CT showed fluid/stranding within gallbladder fossa, air within gallbladder fossa , heterogeneity of Right lobe of liver, possible nonspecific hepatitis, fulid collection within anterior abdominal wall measuring 8.6x2.3x1.6cm, biliary leak , phlegmon, and bowel perforation. Pt was placed on IVF, IV abx, pain control, NPO, and admitted to evaluate for possible bile leak vs. seroma. During hospital course, labs were stable and began to normalize. Surgery was consulted , who removed arnaldo from open cholecystectomy, but determined surgical intervention was not needed at the time. GI consulted, who ordered a HIDA scan for possible bile leak. HIDA showed no evidence of bile leak. GI performed endoscopic removal of patient's biliary stent. As patient, pain improved and was medically stable. It was determined that patient could be discharged to follow up as outpatient. Discharge Exam - Head Exam Head Exam: ATRAUMATIC, NORMOCEPHALIC - Additional Findings Additional findings: Patient discharged overnight, please refer to physical exam from 03/22/17. Discharge Plan - Follow Up Plan Condition: STABLE Disposition: HOME/ ROUTINE Instructions: Acute Abdominal Pain (DC) Additional Instructions: Patient advised to f/u with PMD within one week of discharge. Patient advised to f/u with Surgery and GI within one week of discharge. Patient advised to return to hospital for any new or worsening symptoms. Referrals: Luis Felipe Castillo MD [Primary Care Provider] - <Ibrahima Hoyos - Last Filed: 03/23/17 17:28> Provider - Provider Date of Admission: 03/21/17 00:52 Attending physician: Ibrahima Hoyos MD Primary care physician: Luis Felipe Castillo MD Hospital Course - Lab Results Lab Results: Micro Results 03/21/17 02:10 Blood Blood Culture - Preliminary NO GROWTH AFTER 48 HOURS 03/21/17 01:40 Blood Blood Culture - Preliminary NO GROWTH AFTER 48 HOURS Most Recent Lab Values WBC 3.7 10^3/ul (4.5-11.0) L D 03/22/17 06:30 RBC 3.42 10^6/uL (3.5-6.1) L 03/22/17 06:30 Hgb 9.5 g/dL (12.0-16.0) L 03/22/17 06:30 Hct 29.0 % (36.0-48.0) L 03/22/17 06:30 MCV 84.8 fl (80.0-105.0) 03/22/17 06:30 MCH 27.8 pg (25.0-35.0) 03/22/17 06:30 MCHC 32.8 g/dl (31.0-37.0) 03/22/17 06:30 RDW 14.1 % (11.5-14.5) 03/22/17 06:30 Plt Count 495 10^3/uL (120.0-450.0) H 03/22/17 06:30 MPV 9.1 fl (7.0-11.0) 03/22/17 06:30 Gran % 47.0 % (50.0-68.0) L 03/21/17 08:30 Lymph % (Auto) 42.9 % (22.0-35.0) H 03/21/17 08:30 [place] % (Auto) 8.7 % (1.0-6.0) H 03/21/17 08:30 Eos % (Auto) 1.0 % (1.5-5.0) L 03/21/17 08:30 Baso % (Auto) 0.4 % (0.0-3.0) 03/21/17 08:30 Gran # 2.31 (1.4-6.5) 03/21/17 08:30 Lymph # 2.1 (1.2-3.4) 03/21/17 08:30 [place] # 0.4 (0.1-0.6) 03/21/17 08:30 Eos # 0.1 (0.0-0.7) 03/21/17 08:30 Baso # 0.02 K/mm3 (0.0-2.0) 03/21/17 08:30 Sodium 139 mmol/L (132-148) 03/22/17 06:30 Potassium 3.9 mmol/L (3.6-5.0) 03/22/17 06:30 Chloride 105 mmol/L (98-107) 03/22/17 06:30 Carbon Dioxide 25 mmol/L (21-33) 03/22/17 06:30 Anion Gap 13 (10-20) 03/22/17 06:30 BUN 5 mg/dL (7-21) L 03/22/17 06:30 Creatinine 0.5 mg/dL (0.7-1.2) L 03/22/17 06:30 Est GFR ( Amer) > 60 03/22/17 06:30 Est GFR (Non-Af Amer) > 60 03/22/17 06:30 POC Glucose (mg/dL) 154 mg/dL (65-110) H 03/21/17 16:19 Random Glucose 89 mg/dL (70-110) 03/22/17 06:30 Calcium 9.2 mg/dL (8.4-10.5) 03/22/17 06:30 Phosphorus 4.0 mg/dL (2.5-4.5) 03/22/17 06:30 Magnesium 1.7 mg/dL (1.7-2.2) 03/22/17 06:30 Total Bilirubin 0.4 mg/dL (0.2-1.3) 03/22/17 06:30 AST 28 U/L (14-36) 03/22/17 06:30 ALT 33 U/L (7-56) 03/22/17 06:30 Alkaline Phosphatase 65 U/L (38-126) 03/22/17 06:30 Total Protein 7.1 g/dL (5.8-8.3) 03/22/17 06:30 Albumin 3.4 g/dL (3.0-4.8) 03/22/17 06:30 Globulin 3.7 gm/dL 03/22/17 06:30 Albumin/Globulin Ratio 0.9 (1.1-1.8) L 03/22/17 06:30 Amylase 69 U/L (35-125) 03/22/17 06:30 Lipase 57 U/L (23-300) 03/22/17 06:30 Urine Color Yellow (YELLOW) 03/20/17 22:20 Urine Appearance Clear (CLEAR) 03/20/17 22:20 Urine pH 6.0 (4.7-8.0) 03/20/17 22:20 Ur Specific [place] >= 1.030 (1.005-1.035) 03/20/17 22:20 Urine Protein 30 mg/dL (<30 mg/dL) H 03/20/17 22:20 Urine Glucose (UA) Negative mg/dL (NEGATIVE) 03/20/17 22:20 Urine Ketones Negative mg/dL (NEGATIVE) 03/20/17 22:20 Urine Blood Negative (NEGATIVE) 03/20/17 22:20 Urine Nitrate Negative (NEGATIVE) 03/20/17 22:20 Urine Bilirubin Negative (NEGATIVE) 03/20/17 22:20 Urine Urobilinogen 1.0 E.U./dL (<1 E.U./dL) H 03/20/17 22:20 Ur Leukocyte Esterase Negative [place]/uL (NEGATIVE) 03/20/17 22:20 Urine RBC 0 - 2 /hpf (0-2) 03/20/17 22:20 Urine WBC 0 - 2 /hpf (0-6) 03/20/17 22:20 Ur Epithelial Cells Many /hpf (0-5) 03/20/17 22:20 Amorphous Sediment Few 03/20/17 22:20 Urine Bacteria Mod (NEG) 03/20/17 22:20 Urine HCG, Qual Negative (NEGATIVE) 03/20/17 22:20 Attending/Attestation - Attestation I have personally seen and examined this patient.: Yes I have fully participated in the care of the patient.: Yes I have reviewed all pertinent clinical information, including history, physical exam and plan: Yes Notes (Text): 03/23/17 26 year old female with past medical history of cholecystitis s/p recent cholecystectomy and choledocholithiasis s/p stent placement who presented with complaint of RUQ pain. CT abd/pelvis showed fluid/stranding within gallbladder fossa, air within gallbladder fossa, fluid collection within anterior abdominal wall with possible biliary leak, phlegmon, vs seroma. HIDA scan however was done and negative for biliary leak. Her symptoms have improved and diet was advanced which she tolerated. Antibiotics were discontinued as per surgery. She was seen by GI and underwent ERCP with stent removal. Patient has been cleared for discharge by GI and surgery. Follow up with pmd, surgery and GI. Ibrahima Hoyos MD Hospitalist.
== END 2017-03-22 20:30 | disposition home or self-care (01) ==
LOC: ED 20:43 → ERH 03-21 00:52 → 5RNO 03-21 04:36
PROVIDERS: ADMIT Internal Medicine; ATTEND Internal Medicine
DX: R10.11 Right upper quadrant pain (principal); K29.70 Gastritis, unspecified, without bleeding; F12.90 Cannabis use, unspecified, uncomplicated; D64.9 Anemia, unspecified; R74.8 Abnormal levels of other serum enzymes; Z90.49 Acquired absence of other specified parts of digestive tract
CPT/HCPCS: 36415; 43247; 74177; 78227; 80053; 81001; 82150; 82948; 83690; 83735; 84100; 84703; 85025; 85027; 87040; 99283; A9537; G0378; J0744; J2270; J2704; J3010; J7040; Q9967